=== PATIENT | female | born 1935 | race Caucasian/White ===

== ENCOUNTER 2016-10-09 15:27 | Inpatient (IN) | payer MEDICARE ==
--- NOTE | 2016-10-09 17:03 | ED ---
URI HPI - General Chief Complaint: Upper Respiratory Infection Stated Complaint: Coughing/[id number] Time Seen by Provider: 10/09/16 16:40 Source: patient, RN notes reviewed Mode of arrival: ambulatory Limitations: no limitations - History of Present Illness Initial Comments: This is an 81-year-old female presents emergency Department chief complaint cough, fever. Patient has had a cough for over one week but has recently developed a fever last 24-48 hours. Patient came from dialysis. They did discuss case with Dr. Jay Bland velvet cutter who recommended patient have lab work , x-ray. Patient had sepsis in the past secondary to UTI. Patient states she still does make some urine. Patient states she's been on dialysis for over 2 years secondary to diabetes. Patient denies any abdominal complaints at this time. Denies any nausea vomiting diarrhea constipation. She states her cough is slightly productive with yellowish phlegm. Denies ear pain or sore throat. - Related Data Home Medications Medication Instructions Recorded Confirmed Albuterol Nebulized [Ventolin 2.5 mg INHALATION RT-QID PRN 06/09/15 10/09/16 Nebulized] Allopurinol [Zyloprim] 100 mg PO DAILY 06/09/15 10/09/16 Cetirizine HCl/Pseudoephedrine 1 tab PO DAILY PRN 06/09/15 10/09/16 [Zyrtec-D Tablet] Furosemide [Lasix] 40 mg PO TUTH 06/09/15 10/09/16 Levothyroxine Sodium [Synthroid] 50 mcg PO DAILY 06/09/15 10/09/16 Midodrine [ProAmatine] 5 mg PO MOWEFR 06/09/15 10/09/16 Multivitamins, Thera [Multivitamin] 1 tab PO DAILY 06/09/15 10/09/16 Niacin 500 mg PO DAILY 06/09/15 10/09/16 Sevelamer [Renvela] 1,600 mg PO TID 06/09/15 10/09/16 Simvastatin [Zocor] 20 mg PO HS 06/09/15 10/09/16 Clopidogrel Bisulfate [Plavix] 75 mg PO DAILY 07/21/16 10/09/16 Montelukast [Singulair] 10 mg PO HS 07/21/16 10/09/16 busPIRone HCl [Buspar] 5 mg PO HS 07/21/16 10/09/16 Aspirin EC [Ecotrin Low Dose] 81 mg PO DAILY 08/16/16 10/09/16 Calcium/Magnesium/Zinc 2 tab PO HS 08/16/16 10/09/16 [Vdhpbnh-Feqxkhxel-Rlus Tablet] Cranberry Extract [Cranberry] 1,000 mg PO DAILY 08/16/16 10/09/16 Ergocalciferol [Vitamin D2] 50,000 unit PO MO 08/16/16 10/09/16 Ipratropium [place] [Atrovent Hfa] 2 puff INHALATION RT-BID 08/16/16 10/09/16 [place]-3 Fatty Acids/Fish Oil [Fish 2 cap PO HS 08/16/16 10/09/16 Oil 1,000 mg Softgel] diphenhydrAMINE [Benadryl] 50 mg PO TID 08/16/16 10/09/16 Pregabalin [Lyrica] 75 mg PO BID 10/09/16 10/09/16 Pregabalin [Lyrica] 100 mg PO DAILY@1200 10/09/16 10/09/16 Allergies Allergy/AdvReac Type Severity Reaction Status Date / Time Penicillins Allergy Dyspnea/Yves Verified 10/09/16 17:21 h shellfish derived [Shellfish] Allergy Dyspnea Verified 10/09/16 17:21 Sulfa (Sulfonamide Allergy Unknown Verified 10/09/16 17:21 Antibiotics) Childhood Review of Systems ROS Statement: Those systems with pertinent positive or pertinent negative responses have been documented in the HPI. ROS Other: All systems not noted in ROS Statement are negative. Past Medical History Past Medical History: Asthma, Coronary Artery Disease (CAD), COPD, Diabetes Mellitus, Dialysis, Hyperlipidemia, Hypertension, Osteoarthritis (OA), Renal Disease, Sleep Apnea/CPAP/BIPAP, Thyroid Disorder Additional Past Medical History / Comment(s): migraines, varicose veins, no CPAP used, hiatal hernia, diverticulitis, gout, open sore in rectal area, dialysis-hemodialysis on MOWEFR, O2 use PRN History of Any Multi-Drug Resistant Organisms: None Reported Past Surgical History: Appendectomy, Breast Surgery, Cholecystectomy, Hysterectomy, Orthopedic Surgery Additional Past Surgical History / Comment(s): left shoulder surgery, fatty tummor removed from breast, dialysis cather(rt side of chest currently), fistula left arm(not working), cataracts, aortic valve replacement Past Anesthesia/Blood Transfusion Reactions: Previous Problems w/ Anesthesia Additional Past Anesthesia/Blood Transfusion Reaction / Comment(s): "slow to come out" Past Psychological History: Anxiety Smoking Status: Former smoker Past Alcohol Use History: None Reported Additional Past Alcohol Use History / Comment(s): patient was a tobacco smoker and stopped in [address] drug or alcohol use. No recent travel. No service. Patient lives in her own home and has a caregiver Marcela and her daughter caring for her. Past Drug Use History: None Reported - Past Family History Daughter(s) Family Medical History: Cancer General Exam Limitations: no limitations General appearance: alert, in no apparent distress Head exam: Present: atraumatic, normocephalic, normal inspection Eye exam: Present: normal appearance, PERRL, EOMI. Absent: scleral icterus, conjunctival injection, periorbital swelling ENT exam: Present: normal oropharynx, mucous membranes moist Neck exam: Present: normal inspection, full ROM. Absent: tenderness, meningismus, lymphadenopathy Respiratory exam: Present: normal lung sounds bilaterally. Absent: respiratory distress, wheezes, rales, rhonchi, stridor Cardiovascular Exam: Present: regular rate, normal rhythm, normal heart sounds. Absent: systolic murmur, diastolic murmur, rubs, gallop, clicks GI/Abdominal exam: Present: soft, normal bowel sounds. Absent: distended, tenderness, guarding, rebound, rigid Neurological exam: Present: alert, oriented X3 Skin exam: Present: warm, dry, intact, normal color. Absent: rash Course Vital Signs 10/09/16 10/09/16 10/09/16 15:51 16:50 18:40 Temperature 100.0 F H 100.1 F H Pulse Rate 79 72 Respiratory 20 18 18 Rate Blood Pressure 130/59 139/58 O2 Sat by Pulse 96 96 Oximetry Medical Decision Making - Lab Data Result diagrams: 10/09/16 17:15 10/09/16 17:15 Lab Results 10/09/16 10/09/16 10/09/16 Range/Units 16:54 17:15 17:15 WBC 9.7 (3.8-10.6) k/uL RBC 3.20 L (3.80-5.40) m/uL Hgb 11.0 L (11.4-16.0) gm/dL Hct 32.7 L (34.0-46.0) % MCV 102.4 H D (80.0-100.0) fL MCH 34.4 (25.0-35.0) pg MCHC 33.6 (31.0-37.0) g/dL RDW 19.1 H (11.5-15.5) % Plt Count 127 L (150-450) k/uL Neutrophils % 71 % Lymphocytes % 16 % Monocytes % 6 % Eosinophils % 4 % Basophils % 0 % Neutrophils # 6.8 (1.3-7.7) k/uL Lymphocytes # 1.6 (1.0-4.8) k/uL Monocytes # 0.6 (0-1.0) k/uL Eosinophils # 0.4 (0-0.7) k/uL Basophils # 0.0 (0-0.2) k/uL Anisocytosis Slight Macrocytosis Moderate Sodium 136 L (137-145) mmol/L Potassium 4.5 (3.5-5.1) mmol/L Chloride 95 L (98-107) mmol/L Carbon Dioxide 28 (22-30) mmol/L Anion Gap 13 mmol/L BUN 15 (7-17) mg/dL Creatinine 2.32 H (0.52-1.04) mg/dL Est GFR (MDRD) Af Amer 24 (>60 ml/min/1.73 sqM) Est GFR (MDRD) Non-Af 20 (>60 ml/min/1.73 sqM) Glucose 167 H (74-99) mg/dL Plasma Lactic Acid Trevon (0.7-2.0) mmol/L Calcium 8.8 (8.4-10.2) mg/dL Phosphorus 3.3 (2.5-4.5) mg/dL Total Bilirubin 0.6 (0.2-1.3) mg/dL AST 29 (14-36) U/L ALT 33 (9-52) U/L Alkaline Phosphatase 81 (38-126) U/L Total Protein 6.6 (6.3-8.2) g/dL Albumin 3.8 (3.5-5.0) g/dL Influenza Type A RNA Not Detected (Not Detectd) Influenza Type B (PCR) Not Detected (Not Detectd) 10/09/16 Range/Units 17:15 WBC (3.8-10.6) k/uL RBC (3.80-5.40) m/uL Hgb (11.4-16.0) gm/dL Hct (34.0-46.0) % MCV (80.0-100.0) fL MCH (25.0-35.0) pg MCHC (31.0-37.0) g/dL RDW (11.5-15.5) % Plt Count (150-450) k/uL Neutrophils % % Lymphocytes % % Monocytes % % Eosinophils % % Basophils % % Neutrophils # (1.3-7.7) k/uL Lymphocytes # (1.0-4.8) k/uL Monocytes # (0-1.0) k/uL Eosinophils # (0-0.7) k/uL Basophils # (0-0.2) k/uL Anisocytosis Macrocytosis Sodium (137-145) mmol/L Potassium (3.5-5.1) mmol/L Chloride (98-107) mmol/L Carbon Dioxide (22-30) mmol/L Anion Gap mmol/L BUN (7-17) mg/dL Creatinine (0.52-1.04) mg/dL Est GFR (MDRD) Af Amer (>60 ml/min/1.73 sqM) Est GFR (MDRD) Non-Af (>60 ml/min/1.73 sqM) Glucose (74-99) mg/dL Plasma Lactic Acid Trevon 2.4 H* (0.7-2.0) mmol/L Calcium (8.4-10.2) mg/dL Phosphorus (2.5-4.5) mg/dL Total Bilirubin (0.2-1.3) mg/dL AST (14-36) U/L ALT (9-52) U/L Alkaline Phosphatase (38-126) U/L Total Protein (6.3-8.2) g/dL Albumin (3.5-5.0) g/dL Influenza Type A RNA (Not Detectd) Influenza Type B (PCR) (Not Detectd) Disposition Clinical Impression: Fever, Elevated lactic acid level, UTI (urinary tract infection), Acute bronchitis Disposition: ADMITTED IP TO THIS HOSP
[2016-10-09] MEDS ORDERED: SODIUM CHLORIDE 0.9% 500 ML IV ONE (17:21)
[2016-10-09 17:36] LABS: Anisocytosis Slight; Basophils % (A) 0 %; CHCM 32.4; Eosinophils # (A) 0.4 k/uL (0-0.7); Eosinophils % (A) 4 %; HCT 32.7 % (34.0-46.0); HDW 2.71; Luc # (Auto) 0.29; Luc % (Auto) 3; Lymphocytes # (A) 1.6 k/uL (1.0-4.8); Lymphocytes % (A) 16 %; MCH 34.4 pg (25.0-35.0); MCHC 33.6 g/dL (31.0-37.0); Macrocytosis Moderate; Monocytes # (A) 0.6 k/uL (0-1.0); Monocytes % (A) 6 %; Neutrophils # (A) 6.8 k/uL (1.3-7.7); Neutrophils % (A) 71 %; RDW 19.1 % (11.5-15.5); WBC 9.7 k/uL (3.8-10.6); WBC (Perox) 10.76
[2016-10-09 17:42] LABS: Calcium 8.8 mg/dL (8.4-10.2); MCV 102.4 fL (80.0-100.0); Phosphorous 3.3 mg/dL (2.5-4.5); Potassium 4.5 mmol/L (3.5-5.1); Total Bilirubin 0.6 mg/dL (0.2-1.3); Total Protein 6.6 g/dL (6.3-8.2)
--- NOTE | 2016-10-09 18:02 | XR ---
EXAMINATION TYPE: XR chest 2V DATE OF EXAM: 10/09/2016 5:47 PM COMPARISON: 08/16/2016 HISTORY: Cough TECHNIQUE: Frontal and lateral views of the chest are obtained. FINDINGS: There is no heart failure nor confluent pneumonic infiltrate. There are no hilar masses. C ostophrenic angles are clear. Thoracic aorta is atheromatous. There is aortic stent noted. IMPRESSION: No active cardiopulmonary disease. No heart failure. No change.
[2016-10-09] MEDS ORDERED: LEVOFLOXACIN 500MG-D5W PMX 500 MG in DEXTROSE/WATER 1 100ML.BAG IVPB STA (19:43)
[2016-10-09] MEDS ORDERED: NALOXONE 0.4 MG/ML 1 ML VIAL IV PRN (19:44)
[2016-10-09] MEDS ORDERED: ACETAMINOPHEN TAB 325 MG TAB PO PRN (19:44)
[2016-10-09] MEDS ORDERED: ACETAMINOPHEN TAB 500 MG TAB PO STA (19:48)
[2016-10-09] MEDS: SODIUM CHLORIDE 0.9% 1,000 ML IV SCH (20:37)
[2016-10-09] MEDS ORDERED: NON-FORMULARY DRUG (Omega-3 Fatty Acids/Fish Oil [Fish Oil 1,000 Mg Softgel] 2 CAP) PO SCH (21:00)
[2016-10-09] MEDS ORDERED: MONTELUKAST 10 MG TAB PO SCH (21:00)
[2016-10-09] MEDS: IPRATROPIUM 0.5 MG/2.5 ML NEBU INHALATION SCH (21:45)
[2016-10-10] MEDS: PREGABALIN 75 MG CAP PO SCH ×3 (00:27→21:22)
[2016-10-10] MEDS: ATORVASTATIN 10 MG TAB PO SCH ×2 (00:27→21:22)
[2016-10-10] MEDS: MONTELUKAST 10 MG TAB PO SCH ×2 (00:35→21:22)
[2016-10-10] MEDS: CALCIUM CARB-MAG CARB-FOLIC 1 EACH TAB PO SCH ×2 (00:35→21:22)
[2016-10-10] MEDS: busPIRone HCl 5 MG TAB PO SCH ×2 (00:35→21:22)
[2016-10-10] MEDS: SEVELAMER 800 MG TAB PO SCH ×4 (00:35→18:04)
[2016-10-10] MEDS: diphenhydrAMINE 50 MG CAP PO SCH ×4 (00:36→21:22)
[2016-10-10] MEDS: LEVOTHYROXINE 50 MCG TAB PO SCH (05:44)
[2016-10-10 07:05] LABS: Glucose,Whole Blood 101 mg/dL (75-99)
[2016-10-10] MEDS: ALBUTEROL NEBULIZED 2.5 MG/3 ML INHALATION PRN ×3 (07:36→20:38)
[2016-10-10] MEDS: IPRATROPIUM 0.5 MG/2.5 ML NEBU INHALATION SCH ×2 (07:36→20:38)
[2016-10-10] MEDS: CLOPIDOGREL 75 MG TAB PO SCH (09:56)
[2016-10-10] MEDS: ALLOPURINOL 100 MG TAB PO SCH (09:56)
[2016-10-10] MEDS: NIACIN TR 500 MG CAPSULE.ER PO SCH (09:57)
[2016-10-10] MEDS: FUROSEMIDE 40 MG TAB PO SCH (11:17)
[2016-10-10] MEDS: MULTIVITAMINS, THERA 1 EACH TAB PO SCH (11:17)
[2016-10-10] MEDS: PREGABALIN 100 MG CAP PO SCH (11:17)
[2016-10-10 11:47] LABS: Glucose,Whole Blood 152 mg/dL (75-99)
--- NOTE | 2016-10-10 15:14 | P.HPIM ---
History of Present Illness H&P Date: 10/10/16 81-year-old history of bacteremia in the past, currently is sent back to the hospital from hemodialysis as patient was noted to have a fever 101.8. Patient has a history of COPD, hypertension, dyslipidemia, obstructive sleep apnea. Patient is is helped by her saddle stitcher for her activities of daily living. Initial eval including a chest x-ray did not reveal any abnormalities. Patient' s urine studies are pending at this time. At the time of my examination denies having any headaches, blurry vision, neck pain, nausea, vomiting, urinary urgency or frequency, abdominal pain, diarrhea. Has not had a fever for the last 12 hours. Patient does have a cough however is minimally productive in nature. Review of Systems All systems: negative (Noted in HPI) Past Medical History Past Medical History: Asthma, Coronary Artery Disease (CAD), COPD, Diabetes Mellitus, Dialysis, Hyperlipidemia, Hypertension, Osteoarthritis (OA), Renal Disease, Sleep Apnea/CPAP/BIPAP, Thyroid Disorder Additional Past Medical History / Comment(s): migraines, varicose veins, no CPAP used, hiatal hernia, diverticulitis, gout, open sore in rectal area, dialysis-hemodialysis on MOWEFR, O2 -3 liters n/c PRN,djd, gout,uti History of Any Multi-Drug Resistant Organisms: None Reported Past Surgical History: Appendectomy, Breast Surgery, Cholecystectomy, Heart Catheterization, Hysterectomy, Orthopedic Surgery Additional Past Surgical History / Comment(s): left shoulder surgery, fatty tummor removed from breast, dialysis cather rt side of chest was removed), fistula left arm, cataracts, aortic valve replacement, ivis Past Anesthesia/Blood Transfusion Reactions: Previous Problems w/ Anesthesia Additional Past Anesthesia/Blood Transfusion Reaction / Comment(s): "slow to come out" Past Psychological History: Anxiety Smoking Status: Former smoker Past Alcohol Use History: None Reported Additional Past Alcohol Use History / Comment(s): patient started smoking at age 18(1953) and stopped in [address] drug or alcohol use. No recent travel. No service. Patient lives in her own home and has a caregiver Marcela and her daughter caring for her. Past Drug Use History: None Reported - Past Family History Father Family Medical History: Myocardial Infarction (SD) Mother Family Medical History: No Reported History Additional Family Medical History / Comment(s): from old age. Daughter(s) Family Medical History: Cancer Medications and Allergies Home Medications Medication Instructions Recorded Confirmed Type Albuterol Nebulized [Ventolin 2.5 mg INHALATION RT-QID PRN 06/09/15 10/09/16 History Nebulized] Allopurinol [Zyloprim] 100 mg PO DAILY 06/09/15 10/09/16 History Cetirizine HCl/Pseudoephedrine 1 tab PO DAILY PRN 06/09/15 10/09/16 History [Zyrtec-D Tablet] Furosemide [Lasix] 40 mg PO TUTH 06/09/15 10/09/16 History Levothyroxine Sodium [Synthroid] 50 mcg PO DAILY 06/09/15 10/09/16 History Midodrine [ProAmatine] 5 mg PO MOWEFR 06/09/15 10/09/16 History Multivitamins, Thera [Multivitamin] 1 tab PO DAILY 06/09/15 10/09/16 History Niacin 500 mg PO DAILY 06/09/15 10/09/16 History Sevelamer [Renvela] 1,600 mg PO TID 06/09/15 10/09/16 History Simvastatin [Zocor] 20 mg PO HS 06/09/15 10/09/16 History Clopidogrel Bisulfate [Plavix] 75 mg PO DAILY 07/21/16 10/09/16 History Montelukast [Singulair] 10 mg PO HS 07/21/16 10/09/16 History busPIRone HCl [Buspar] 5 mg PO HS 07/21/16 10/09/16 History Aspirin EC [Ecotrin Low Dose] 81 mg PO DAILY 08/16/16 10/09/16 History Calcium/Magnesium/Zinc 2 tab PO HS 08/16/16 10/09/16 History [Vtmbeuq-Bugboiwiw-Idff Tablet] Cranberry Extract [Cranberry] 1,000 mg PO DAILY 08/16/16 10/09/16 History Ergocalciferol [Vitamin D2] 50,000 unit PO MO 08/16/16 10/09/16 History Ipratropium [place] [Atrovent Hfa] 2 puff INHALATION RT-BID 08/16/16 10/09/16 History [place]-3 Fatty Acids/Fish Oil [Fish 2 cap PO HS 08/16/16 10/09/16 History Oil 1,000 mg Softgel] diphenhydrAMINE [Benadryl] 50 mg PO TID 08/16/16 10/09/16 History Pregabalin [Lyrica] 75 mg PO BID 10/09/16 10/09/16 History Pregabalin [Lyrica] 100 mg PO DAILY@1200 10/09/16 10/09/16 History Allergies Allergy/AdvReac Type Severity Reaction Status Date / Time Penicillins Allergy Dyspnea/Yves Verified 10/09/16 17:21 h shellfish derived [Shellfish] Allergy Dyspnea Verified 10/09/16 17:21 Sulfa (Sulfonamide Allergy Unknown Verified 10/09/16 17:21 Antibiotics) Childhood Physical Exam Vitals: Vital Signs Temp Pulse Pulse Resp BP BP Pulse Ox 10/10/16 07:46 64 10/10/16 07:36 64 10/10/16 07:00 99.1 F 78 16 128/58 95 10/10/16 00:55 98.2 F 76 16 128/67 96 10/09/16 22:10 98.0 F 75 16 122/45 93 L 10/09/16 21:20 98.1 F 73 18 123/56 96 Intake and Output 10/10/16 10/10/16 10/10/16 06:59 14:59 22:59 Intake Total 160 Balance 160 Intake: IV 160 Sodium Chloride 0.9% 1, 160 000 ml @ 20 mls/hr IV . Q24H [facility] Rx#:[id number] Physical exam Gen. appearance oriented 3 in no distress Neck is supple no JVD Lungs good air entry clear to auscultation no rhonchi or wheezing Heart S1-S2 heard regular rate and rhythm no murmurs appreciated Abdomen is soft nontender no organomegaly bowel sounds are intact Left upper extremity a palpable thrill noted over the fistula. No erythema no signs of infection. Neurologically cranial nerves II-12 grossly intact no focal motor or sensory deficits noted Skin no abnormalities appreciated Results CBC & Chem 7: 10/09/16 17:15 10/09/16 17:15 Labs: Abnormal Lab Results - Last 24 Hours (Table) 10/10/16 10/10/16 Range/Units 07:00 11:39 POC Glucose (mg/dL) 101 H 152 H (75-99) mg/dL Thrombosis Risk Factor Assmnt - Choose All That Apply Each Risk Factor Represents 3 Points: Age 75 years or older Thrombosis Risk Factor Assessment Total Risk Factor Score: 3 Thrombosis Risk Factor Assessment Level: Moderate Risk Assessment and Plan Plan: #1 fever of unknown origin #2 acute bronchitis #3 history of COPD that is stable #4 ESRD and hemodialysis #5 history of hypertension #6 dyslipidemia #7 obstructive sleep apnea #8 anemia of ESRD #9 hypothyroidism #10 peripheral neuropathy #11 history of breast cancer Plan Empiric antibody therapy will be started. Influenza screen is negative. Blood culture and urine culture will be done. Continue supportive care. Due to prophylaxis. We'll monitor the patient for further febrile episodes.
[2016-10-10 17:01] LABS: Glucose,Whole Blood 146 mg/dL (75-99)
[2016-10-10] MEDS ORDERED: LEVOFLOXACIN 250 MG TAB PO SCH (20:00)
[2016-10-10] MEDS ORDERED: LEVOFLOXACIN 500MG-D5W PMX 500 MG in DEXTROSE/WATER 1 100ML.BAG IVPB SCH (20:00)
[2016-10-10 20:46] LABS: Glucose,Whole Blood 173 mg/dL (75-99)
[2016-10-11] MEDS: LEVOTHYROXINE 50 MCG TAB PO SCH (05:44)
[2016-10-11] MEDS: SODIUM CHLORIDE 0.9% 1,000 ML IV SCH ×2 (05:45→21:30)
[2016-10-11 06:56] LABS: Glucose,Whole Blood 125 mg/dL (75-99)
[2016-10-11 07:32] LABS: Calcium 8.7 mg/dL (8.4-10.2); Potassium 5.4 mmol/L (3.5-5.1); Total Bilirubin 0.5 mg/dL (0.2-1.3); Total Protein 5.6 g/dL (6.3-8.2)
[2016-10-11] MEDS: SEVELAMER 800 MG TAB PO SCH ×3 (07:38→17:07)
[2016-10-11] MEDS: ALLOPURINOL 100 MG TAB PO SCH (07:59)
[2016-10-11] MEDS: CLOPIDOGREL 75 MG TAB PO SCH (07:59)
[2016-10-11] MEDS: diphenhydrAMINE 50 MG CAP PO SCH ×3 (07:59→21:26)
[2016-10-11] MEDS: NIACIN TR 500 MG CAPSULE.ER PO SCH (08:00)
[2016-10-11] MEDS: PREGABALIN 75 MG CAP PO SCH ×2 (08:00→21:26)
[2016-10-11 08:42] LABS: Anisocytosis Slight; Basophils % (A) 1 %; CH 32.6; CHCM 31.2; Eosinophils # (A) 0.5 k/uL (0-0.7); Eosinophils % (A) 7 %; HCT 30.4 % (34.0-46.0); HDW 2.52; HGB 9.6 gm/dL (11.4-16.0); Hypochromasia Slight; Luc # (Auto) 0.33; Luc % (Auto) 4; Lymphocytes # (A) 1.6 k/uL (1.0-4.8); Lymphocytes % (A) 20 %; MCH 33.1 pg (25.0-35.0); MCHC 31.5 g/dL (31.0-37.0); MCV 105.1 fL (80.0-100.0); Macrocytosis Marked; Mean Platelet Volume 7.4; Monocytes # (A) 0.5 k/uL (0-1.0); Monocytes % (A) 7 %; Neutrophils # (A) 5.1 k/uL (1.3-7.7); Neutrophils % (A) 63 %; RBC 2.89 m/uL (3.80-5.40); RDW 18.2 % (11.5-15.5); WBC 8.2 k/uL (3.8-10.6); WBC (Perox) 8.47
[2016-10-11] MEDS: IPRATROPIUM 0.5 MG/2.5 ML NEBU INHALATION SCH ×2 (08:49→19:13)
[2016-10-11] MEDS ORDERED: MIDODRINE 5 MG TAB PO SCH (12:00)
[2016-10-11 12:02] LABS: Manual Review Performed
[2016-10-11 12:18] LABS: Glucose,Whole Blood 173 mg/dL (75-99)
[2016-10-11] MEDS: MULTIVITAMINS, THERA 1 EACH TAB PO SCH (12:32)
[2016-10-11] MEDS: PREGABALIN 100 MG CAP PO SCH (12:33)
[2016-10-11 17:05] LABS: Glucose,Whole Blood 192 mg/dL (75-99)
--- NOTE | 2016-10-11 17:14 | P.PN ---
Subjective 81-year-old history of bacteremia in the past, currently is sent back to the hospital from hemodialysis as patient was noted to have a fever 101.8. Patient has a history of COPD, hypertension, dyslipidemia, obstructive sleep apnea. Patient is is helped by her change control specialist for her activities of daily living. Initial eval including a chest x-ray did not reveal any abnormalities. Patient' s urine studies are pending at this time. At the time of my examination denies having any headaches, blurry vision, neck pain, nausea, vomiting, urinary urgency or frequency, abdominal pain, diarrhea. Has not had a fever for the last 12 hours. Patient does have a cough however is minimally productive in nature. 10/11/2016 Patient doing well no new overnight events. Denies having chest pain, difficulty breathing, nausea, vomiting. Objective - Vital Signs Vital signs: Vital Signs Temp 97.8 F 10/11/16 15:00 Pulse 71 10/11/16 16:00 Resp 16 10/11/16 16:00 BP 133/63 10/11/16 15:00 Pulse Ox 94 L 10/11/16 15:00 Intake & Output 10/10/16 10/11/16 10/11/16 18:59 06:59 18:59 Intake Total 600 1500 Balance 600 1500 Weight 88.3 kg Intake: IV 200 Sodium Chloride 0.9% 1, 200 000 ml @ 20 mls/hr IV . Q24H [facility] Rx#:[id number] Oral 400 1500 Other: Voiding Method Toilet Toilet Diaper # Voids 2 2 - Exam Physical exam Gen. appearance oriented 3 in no distress Neck is supple no JVD Lungs good air entry clear to auscultation no rhonchi or wheezing Heart S1-S2 heard regular rate and rhythm no murmurs appreciated Abdomen is soft nontender no organomegaly bowel sounds are intact Fistula in the left upper arm palpable thrill no signs of infection. Neurologically cranial nerves II-12 grossly intact no focal motor or sensory deficits noted Skin no abnormalities appreciated - Labs CBC & Chem 7: 10/11/16 07:00 10/11/16 07:00 Labs: Abnormal Lab Results - Last 24 Hours (Table) 10/10/16 10/11/16 10/11/16 Range/Units 20:43 06:55 07:00 RBC 2.89 L (3.80-5.40) m/uL Hgb 9.6 L (11.4-16.0) gm/dL Hct 30.4 L (34.0-46.0) % MCV 105.1 H (80.0-100.0) fL RDW 18.2 H (11.5-15.5) % Plt Count 136 L (150-450) k/uL Sodium (137-145) mmol/L Potassium (3.5-5.1) mmol/L BUN (7-17) mg/dL Creatinine (0.52-1.04) mg/dL Glucose (74-99) mg/dL POC Glucose (mg/dL) 173 H 125 H (75-99) mg/dL Total Protein (6.3-8.2) g/dL Albumin (3.5-5.0) g/dL 10/11/16 10/11/16 10/11/16 Range/Units 07:00 12:17 17:04 RBC (3.80-5.40) m/uL Hgb (11.4-16.0) gm/dL Hct (34.0-46.0) % MCV (80.0-100.0) fL RDW (11.5-15.5) % Plt Count (150-450) k/uL Sodium 136 L (137-145) mmol/L Potassium 5.4 H (3.5-5.1) mmol/L BUN 42 H (7-17) mg/dL Creatinine 5.06 H* (0.52-1.04) mg/dL Glucose 124 H (74-99) mg/dL POC Glucose (mg/dL) 173 H 192 H (75-99) mg/dL Total Protein 5.6 L (6.3-8.2) g/dL Albumin 3.1 L (3.5-5.0) g/dL Assessment and Plan Plan: #1 fever likely secondary to a urinary tract infection with gram-negative bacilli. #2 acute bronchitis #3 history of COPD that is stable #4 ESRD and hemodialysis #5 history of hypertension #6 dyslipidemia #7 obstructive sleep apnea #8 anemia of ESRD #9 hypothyroidism #10 peripheral neuropathy #11 history of breast cancer Plan Antibiotic therapy. Patient appears to be improved. Await final cultures and susceptibilities. We'll have nephrology and also for her hemodialysis today. Rest of the care to continue. DVT prophylaxis.
[2016-10-11 20:10] LABS: Hepatitis B Surface Ag Index 0.08
[2016-10-11 20:50] VITALS: RESP 18
[2016-10-11] MEDS: busPIRone HCl 5 MG TAB PO SCH (21:25)
[2016-10-11] MEDS: ATORVASTATIN 10 MG TAB PO SCH (21:25)
[2016-10-11] MEDS: CALCIUM CARB-MAG CARB-FOLIC 1 EACH TAB PO SCH (21:26)
[2016-10-11] MEDS: MONTELUKAST 10 MG TAB PO SCH (21:26)
--- NOTE | 2016-10-11 21:42 | CONS ---
DATE OF CONSULTATION: 10/11/2016 REASON FOR CONSULTATION: End-stage renal disease. HISTORY OF PRESENT ILLNESS: Patient is an 81-year-old white female with end-stage renal disease on hemodialysis on a Sunday, Sunday, Sunday schedule. She was admitted to the hospital with complaints of weakness, not feeling well. She also had cough and fever. She was found to have a urinary tract infection with gram-negative bacilli. Patient states she is feeling better. PAST MEDICAL HISTORY: End-stage renal disease, morbid obesity, coronary artery disease, type 2 diabetes, osteoarthritis, hypertension, obstructive sleep apnea, hypothyroidism. PAST SURGICAL HISTORY: Appendectomy, breast surgery, cholecystectomy, hysterectomy, left shoulder surgery, AV fistula, aortic valve replacement. SOCIAL HISTORY: Patient is an ex-smoker. No history of drug abuse or alcohol abuse. Medications are reviewed. ALLERGIES INCLUDE SULFA, SHELLFISH AND PENICILLINS. On examination, patient is currently comfortable, awake, not in any acute distress. Blood pressure is 133/63, heart rate 71 per minute. She is afebrile. HEART: S1 and S2. LUNGS: Bilateral breath sounds are heard. Decreased breath sounds in bases. Abdomen is soft, morbidly obese. Lower extremities show chronic skin changes.
--- NOTE | 2016-10-11 21:42 | PN ---
ADDENDUM TO PROGRESS NOTE ASSESSMENT: 1. End-stage renal disease, on hemodialysis on a Sunday, Sunday, Sunday schedule. 2. Urinary tract infection with Gram-negative bacilli, maintained on antibiotics. 3. Morbid obesity. 4. Type 2 diabetes. 5. Obstructive sleep apnea. 6. Chronic kidney disease bone mineral disorder. 7. Chronic obstructive pulmonary disease. PLAN: Hemodialysis today; UF of about 2 to 3 liters as tolerated.
[2016-10-11] MEDS ORDERED: GELATIN SPONGE,ABSORB (SMALL) 1 EACH SPONGE ONE (22:30)
[2016-10-12] MEDS: LEVOTHYROXINE 50 MCG TAB PO SCH (05:36)
[2016-10-12 07:02] LABS: Glucose,Whole Blood 98 mg/dL (75-99)
[2016-10-12 07:20] LABS: Potassium 5.2 mmol/L (3.5-5.1); Total Bilirubin 0.6 mg/dL (0.2-1.3); Total Protein 5.9 g/dL (6.3-8.2)
[2016-10-12] MEDS: IPRATROPIUM 0.5 MG/2.5 ML NEBU INHALATION SCH (07:21)
[2016-10-12 07:35] VITALS: BP 124/51; PULSE 67; TEMP 98
[2016-10-12] MEDS: SEVELAMER 800 MG TAB PO SCH ×2 (08:01→10:51)
[2016-10-12] MEDS: CLOPIDOGREL 75 MG TAB PO SCH (08:02)
[2016-10-12] MEDS: diphenhydrAMINE 50 MG CAP PO SCH (08:02)
[2016-10-12] MEDS: FUROSEMIDE 40 MG TAB PO SCH (08:02)
[2016-10-12] MEDS: NIACIN TR 500 MG CAPSULE.ER PO SCH (08:02)
[2016-10-12] MEDS: ALLOPURINOL 100 MG TAB PO SCH (08:02)
[2016-10-12] MEDS: PREGABALIN 75 MG CAP PO SCH (08:03)
[2016-10-12 08:04] LABS: Anisocytosis Slight; Aty Lym Flag Slight; CH 32.6; CHCM 31.1; HCT 33.8 % (34.0-46.0); HDW 2.61; HGB 10.7 gm/dL (11.4-16.0); Hypochromasia Slight; MCH 33.4 pg (25.0-35.0); MCHC 31.6 g/dL (31.0-37.0); MCV 105.4 fL (80.0-100.0); Macrocytosis Marked; Mean Platelet Volume 7.4; RBC 3.21 m/uL (3.80-5.40); WBC (Perox) 8.32
[2016-10-12 08:27] LABS: Add Differential Manual Differential
[2016-10-12 08:31] LABS: Nucleated Red Blood Cells 0 /100 WBC (0-0); Total Cells Counted 100
[2016-10-12] MEDS: MULTIVITAMINS, THERA 1 EACH TAB PO SCH (10:50)
[2016-10-12] MEDS: PREGABALIN 100 MG CAP PO SCH (10:51)
--- NOTE | 2016-10-12 11:02 | P.PN ---
Subjective Patient is seen in follow-up for end-stage renal disease. She is maintained on hemodialysis on a Sunday schedule. Patient presented with generalized weakness. She had a fever of 102 and also a cough which is now resolved. She is noted to have a urinary tract infection with urine culture positive for E. coli. Currently sitting up in chair. Denies chest pain or shortness of breath. No vomiting or diarrhea. Vital signs are stable. General: The patient appeared well nourished and normally developed. HEENT: Head exam is unremarkable. Neck is without jugular venous distension. LUNGS: Lungs are clear to auscultation and percussion. Breath sounds decreased. HEART: Rate and Rhythm are regular. First and second heart sounds normal. No murmurs, rubs or gallops. ABDOMEN: Abdominal exam reveals normal bowel sounds. Non-tender and non- distended. No evidence of peritonitis. EXTREMITITES: No clubbing, cyanosis, or edema. Objective - Vital Signs Vital signs: Vital Signs Temp 98 F 10/12/16 07:00 Pulse 67 10/12/16 08:00 Resp 18 10/12/16 08:00 BP 124/51 10/12/16 07:00 Pulse Ox 96 10/12/16 07:00 Intake & Output 10/11/16 10/12/16 10/12/16 18:59 06:59 18:59 Intake Total 1999 390 Balance 1999 390 Weight 88.3 kg 88.3 kg Intake: IV 140 Sodium Chloride 0.9% 1, 140 000 ml @ 20 mls/hr IV . Q24H [facility] Rx#:[id number] Oral 1999 250 Other: Voiding Method Toilet Toilet Diaper Diaper # Voids 2 - Labs CBC & Chem 7: 10/12/16 06:43 10/12/16 06:43 Labs: Abnormal Lab Results - Last 24 Hours (Table) 10/11/16 10/11/16 10/11/16 Range/Units 07:00 12:17 17:04 RBC 2.89 L (3.80-5.40) m/uL Hgb 9.6 L (11.4-16.0) gm/dL Hct 30.4 L (34.0-46.0) % MCV 105.1 H (80.0-100.0) fL RDW 18.2 H (11.5-15.5) % Plt Count 136 L (150-450) k/uL Potassium (3.5-5.1) mmol/L BUN (7-17) mg/dL Creatinine (0.52-1.04) mg/dL Glucose (74-99) mg/dL POC Glucose (mg/dL) 173 H 192 H (75-99) mg/dL Total Protein (6.3-8.2) g/dL Albumin (3.5-5.0) g/dL 10/12/16 10/12/16 Range/Units 06:43 06:43 RBC 3.21 L (3.80-5.40) m/uL Hgb 10.7 L (11.4-16.0) gm/dL Hct 33.8 L (34.0-46.0) % MCV 105.4 H (80.0-100.0) fL RDW 18.0 H (11.5-15.5) % Plt Count (150-450) k/uL Potassium 5.2 H (3.5-5.1) mmol/L BUN 28 H (7-17) mg/dL Creatinine 3.67 H (0.52-1.04) mg/dL Glucose 100 H (74-99) mg/dL POC Glucose (mg/dL) (75-99) mg/dL Total Protein 5.9 L (6.3-8.2) g/dL Albumin 3.2 L (3.5-5.0) g/dL Assessment and Plan Plan: Assessment: #1. End-stage renal disease maintained on hemodialysis on a Sunday schedule. #2. Acute bronchitis. #3. Urinary tract infection with urine culture positive for E. coli. #4. Chronic kidney disease mineral bone disease. #5. Anemia of chronic kidney disease. Hemoglobin at goal. Plan: Hemodialysis tomorrow with goal to liters ultrafiltration. Maintain phosphate binders with meals. Stable to be discharged home from nephrology standpoint.
[2016-10-12 11:53] LABS: Glucose,Whole Blood 177 mg/dL (75-99)
--- NOTE | 2016-10-12 12:05 | P.DS ---
Providers Date of admission: 10/09/16 20:10 Attending physician: Jennifer Suarez Consults: 10/10/16 14:59 Consult Physician Stat Consulting Provider: Henna Molina Consult Reason/Comments: ESRD Do you want consulting provider notified?: Yes Primary care physician: Tone Adams [facility] Course: 81-year-old history of bacteremia in the past, currently is sent back to the hospital from hemodialysis as patient was noted to have a fever 101.8. Patient has a history of COPD, hypertension, dyslipidemia, obstructive sleep apnea. Patient is is helped by her receptionist for her activities of daily living. Initial eval including a chest x-ray did not reveal any abnormalities. Patient' s urine studies are pending at this time. At the time of my examination denies having any headaches, blurry vision, neck pain, nausea, vomiting, urinary urgency or frequency, abdominal pain, diarrhea. Has not had a fever for the last 12 hours. Patient does have a cough however is minimally productive in nature. 10/11/2016 Patient doing well no new overnight events. Denies having chest pain, difficulty breathing, nausea, vomiting. 2016 Patient appears to be in good spirits. Denies having any headaches, blurry vision, nausea, vomiting, diarrhea. Physical exam Neck is supple no JVD Lungs good air entry clear to auscultation no rhonchi or wheezing Heart S1-S2 heard regular rate and rhythm no murmurs appreciated Abdomen is soft nontender no organomegaly bowel sounds are intact Fistula in the left upper arm palpable thrill no signs of infection. Neurologically cranial nerves II-12 grossly intact no focal motor or sensory deficits noted Skin no abnormalities appreciated Assessment and Plan Plan: #1 E. coli urinary tract infection causing sepsis which was present on admission. #2 acute bronchitis #3 history of COPD that is stable #4 ESRD and hemodialysis #5 history of hypertension #6 dyslipidemia #7 obstructive sleep apnea #8 anemia of ESRD #9 hypothyroidism #10 peripheral neuropathy #11 history of breast cancer Underwent hemodialysis on admission. Continue antibiotics for another 6 doses. To follow up with patient's primary care physician. No other changes in medications were made. Patient Condition at Discharge: Fair Plan - Discharge Summary New Discharge Prescriptions: Levofloxacin [Levaquin] 250 mg PO Q48H #6 tab Discharge Medication List Albuterol Nebulized [Ventolin Nebulized] 2.5 mg INHALATION RT-QID PRN 06/09/15 [ History] Allopurinol [Zyloprim] 100 mg PO DAILY 06/09/15 [History] Cetirizine HCl/Pseudoephedrine [Zyrtec-D Tablet] 1 tab PO DAILY PRN 06/09/15 [ History] Furosemide [Lasix] 40 mg PO TUTH 06/09/15 [History] Levothyroxine Sodium [Synthroid] 50 mcg PO DAILY 06/09/15 [History] Midodrine [ProAmatine] 5 mg PO MOWEFR 06/09/15 [History] Multivitamins, Thera [Multivitamin] 1 tab PO DAILY 06/09/15 [History] Niacin 500 mg PO DAILY 06/09/15 [History] Sevelamer [Renvela] 1,600 mg PO TID 06/09/15 [History] Simvastatin [Zocor] 20 mg PO HS 06/09/15 [History] Clopidogrel Bisulfate [Plavix] 75 mg PO DAILY 07/21/16 [History] Montelukast [Singulair] 10 mg PO HS 07/21/16 [History] busPIRone HCl [Buspar] 5 mg PO HS 07/21/16 [History] Aspirin EC [Ecotrin Low Dose] 81 mg PO DAILY 08/16/16 [History] Calcium/Magnesium/Zinc [Vobticl-Fmglsjtnk-Ufat Tablet] 2 tab PO HS 08/16/16 [ History] Cranberry Extract [Cranberry] 1,000 mg PO DAILY 08/16/16 [History] Ergocalciferol [Vitamin D2 (DRISDOL)] 50,000 unit PO MO 08/16/16 [History] Ipratropium [place] [Atrovent Hfa] 2 puff INHALATION RT-BID 08/16/16 [History] [place]-3 Fatty Acids/Fish Oil [Fish Oil 1,000 mg Softgel] 2 cap PO HS 08/16/16 [ History] diphenhydrAMINE [Benadryl] 50 mg PO TID 08/16/16 [History] Pregabalin [Lyrica] 75 mg PO BID 10/09/16 [History] Pregabalin [Lyrica] 100 mg PO DAILY@1200 10/09/16 [History] Levofloxacin [Levaquin] 250 mg PO Q48H #6 tab 10/12/16 [Rx] Follow up Appointment(s)/Referral(s): Henna Molina MD [STAFF PHYSICIAN] - 10/24/16 2:00 pm Tone Adams MD [Primary Care Provider] - 10/19/16 10:30 am Discharge Disposition: HOME SELF-CARE
[2016-10-12] MEDS ORDERED: LEVOFLOXACIN 250 MG TAB PO SCH (18:00)
== END 2016-10-12 14:55 | disposition home or self-care (01) | DRG 871 ==
LOC: EC 15:27 → 4MS4W 20:10 → 3SUR 20:35
PROVIDERS: ADMIT Internal Medicine; ATTEND Internal Medicine
DX: A41.9 Sepsis, unspecified organism (principal); N18.6 End stage renal disease; J44.0 Chronic obstructive pulmonary disease with (acute) lower respiratory infection; I12.0 Hypertensive chronic kidney disease with stage 5 chronic kidney disease or end stage renal disease; N39.0 Urinary tract infection, site not specified; E11.22 Type 2 diabetes mellitus with diabetic chronic kidney disease; D63.1 Anemia in chronic kidney disease; E03.9 Hypothyroidism, unspecified; E66.01 Morbid (severe) obesity due to excess calories; E78.5 Hyperlipidemia, unspecified; F41.9 Anxiety disorder, unspecified; G47.33 Obstructive sleep apnea (adult) (pediatric); I25.10 Atherosclerotic heart disease of native coronary artery without angina pectoris; J20.9 Acute bronchitis, unspecified; J45.909 Unspecified asthma, uncomplicated; B96.20 Unspecified Escherichia coli [E. coli] as the cause of diseases classified elsewhere; G43.909 Migraine, unspecified, not intractable, without status migrainosus; I83.90 Asymptomatic varicose veins of unspecified lower extremity; M19.90 Unspecified osteoarthritis, unspecified site; K44.9 Diaphragmatic hernia without obstruction or gangrene; K57.90 Diverticulosis of intestine, part unspecified, without perforation or abscess without bleeding; M10.9 Gout, unspecified; E11.40 Type 2 diabetes mellitus with diabetic neuropathy, unspecified; E83.9 Disorder of mineral metabolism, unspecified; Z85.3 Personal history of malignant neoplasm of breast; Z87.891 Personal history of nicotine dependence; Z95.2 Presence of prosthetic heart valve; Z99.2 Dependence on renal dialysis; Z88.2 Allergy status to sulfonamides; Z88.0 Allergy status to penicillin; Z68.39 Body mass index [BMI] 39.0-39.9, adult; Z79.02 Long term (current) use of antithrombotics/antiplatelets; Z79.82 Long term (current) use of aspirin; Z79.899 Other long term (current) drug therapy; Z82.49 Family history of ischemic heart disease and other diseases of the circulatory system
CPT/HCPCS: 36415; 71020; 80053; 82607; 83540; 83550; 83605; 84100; 85025; 87040; 87077; 87086; 87186; 87340; 87502; 94640; 96365; 99284

== ENCOUNTER → 2016-10-25 | Outpatient (CLI) | payer MEDICARE ==
[2016-10-25 09:06] LABS: Calcium 9.3 mg/dL (8.4-10.2); Potassium 5.5 mmol/L (3.5-5.1)
[2016-10-25 11:46] LABS: Hemoglobin A1C 5.4 % (4.2-6.1)
== END | disposition home or self-care (01) ==
LOC: LABWHC1 08:23
PROVIDERS: ATTEND Family Medicine
DX: E11.42 Type 2 diabetes mellitus with diabetic polyneuropathy (principal)
CPT/HCPCS: 36415; 80048; 80061; 83036

== ENCOUNTER 2016-12-18 11:14 | Inpatient (IN) | payer MEDICARE ==
[2016-12-18] MEDS ORDERED: SODIUM CHLORIDE 0.9% 1,000 ML IV ONE (11:53)
--- NOTE | 2016-12-18 12:05 | ED ---
General Adult HPI - General Chief complaint: Altered Mental Status Stated complaint: POSS UTI Time Seen by Provider: 12/18/16 11:44 Source: patient, RN notes reviewed, old records reviewed Mode of arrival: ambulatory Limitations: altered mental status - History of Present Illness Initial comments: This is a 81-year-old female to the ER for evaluation of altered mental status. Patient has a significant Medical history including dialysis and multiple medical comorbidities. Was in dialysis today noted to have fever and to be altered mentally. Patient is also noted to not be able to complete her dialysis. Patient's poor historian, history obtained from the nurse at dialysis , and chart - Related Data Home Medications Medication Instructions Recorded Confirmed Albuterol Nebulized [Ventolin 2.5 mg INHALATION RT-QID PRN 06/09/15 12/18/16 Nebulized] Allopurinol [Zyloprim] 100 mg PO DAILY 06/09/15 12/18/16 Cetirizine HCl/Pseudoephedrine 1 tab PO DAILY PRN 06/09/15 12/18/16 [Zyrtec-D Tablet] Furosemide [Lasix] 40 mg PO TUTH 06/09/15 12/18/16 Levothyroxine Sodium [Synthroid] 50 mcg PO DAILY 06/09/15 12/18/16 Midodrine [ProAmatine] 5 mg PO MOWEFR 06/09/15 12/18/16 Multivitamins, Thera [Multivitamin 1 tab PO DAILY 06/09/15 12/18/16 (formulary)] Niacin 500 mg PO DAILY 06/09/15 12/18/16 Sevelamer [Renvela] 1,600 mg PO TID 06/09/15 12/18/16 Simvastatin [Zocor] 20 mg PO HS 06/09/15 12/18/16 Clopidogrel Bisulfate [Plavix] 75 mg PO DAILY 07/21/16 12/18/16 Montelukast [Singulair] 10 mg PO HS 07/21/16 12/18/16 busPIRone HCl [Buspar] 5 mg PO HS 07/21/16 12/18/16 Aspirin EC [Ecotrin Low Dose] 81 mg PO DAILY 08/16/16 12/18/16 Calcium/Magnesium/Zinc 1 tab PO DAILY 08/16/16 12/18/16 [Vqbdier-Hwmnrquxk-Jzqi Tablet] Ergocalciferol [Vitamin D2 50,000 unit PO MO 08/16/16 12/18/16 (DRISDOL)] [place]-3 Fatty Acids/Fish Oil [Fish 2 cap PO HS 08/16/16 12/18/16 Oil 1,000 mg Softgel] Pregabalin [Lyrica] 100 mg PO TID 10/09/16 12/18/16 ALPRAZolam [Xanax] 0.25 mg PO HS 12/18/16 12/18/16 Albuterol Inhaler [Ventolin Hfa 2 puff INHALATION RT-Q6H PRN 12/18/16 12/18/16 Inhaler] Cranberry Gummies 1 tab PO BID 12/18/16 12/18/16 diphenhydrAMINE HCL [Benadryl] 50 mg PO TID 12/18/16 12/18/16 Allergies Allergy/AdvReac Type Severity Reaction Status Date / Time Penicillins Allergy Dyspnea/Yves Verified 12/18/16 12:38 h shellfish derived [Shellfish] Allergy Dyspnea Verified 12/18/16 12:38 Sulfa (Sulfonamide Allergy Unknown Verified 12/18/16 12:38 Antibiotics) Childhood Review of Systems ROS Statement: Those systems with pertinent positive or pertinent negative responses have been documented in the HPI. ROS Other: All systems not noted in ROS Statement are negative. Past Medical History Past Medical History: Asthma, Coronary Artery Disease (CAD), COPD, Diabetes Mellitus, Dialysis, Hyperlipidemia, Hypertension, Osteoarthritis (OA), Renal Disease, Sleep Apnea/CPAP/BIPAP, Thyroid Disorder Additional Past Medical History / Comment(s): migraines, varicose veins, no CPAP used, hiatal hernia, diverticulitis, gout, open sore in rectal area, dialysis-hemodialysis on MOWEFR, O2 -3 liters n/c PRN,djd, gout,uti History of Any Multi-Drug Resistant Organisms: None Reported Past Surgical History: Appendectomy, Breast Surgery, Cholecystectomy, Heart Catheterization, Hysterectomy, Orthopedic Surgery Additional Past Surgical History / Comment(s): left shoulder surgery, fatty tummor removed from breast, dialysis cather rt side of chest was removed), fistula left arm, cataracts, aortic valve replacement, ivis Past Anesthesia/Blood Transfusion Reactions: Previous Problems w/ Anesthesia Additional Past Anesthesia/Blood Transfusion Reaction / Comment(s): "slow to come out" Past Psychological History: Anxiety Smoking Status: Former smoker Past Alcohol Use History: None Reported Additional Past Alcohol Use History / Comment(s): patient started smoking at age 18(1953) and stopped in [address] drug or alcohol use. No recent travel. No service. Patient lives in her own home and has a caregiver Marcela and her daughter caring for her. Past Drug Use History: None Reported - Past Family History Father Family Medical History: Myocardial Infarction ([place]) Mother Family Medical History: No Reported History Additional Family Medical History / Comment(s): from old age. Daughter(s) Family Medical History: Cancer General Exam Limitations: altered mental status General appearance: alert, in no apparent distress Head exam: Present: atraumatic, normocephalic, normal inspection Eye exam: Present: normal appearance, PERRL, EOMI. Absent: scleral icterus, conjunctival injection, periorbital swelling ENT exam: Present: normal exam, mucous membranes moist Neck exam: Present: normal inspection. Absent: tenderness, meningismus, lymphadenopathy Respiratory exam: Present: normal lung sounds bilaterally. Absent: respiratory distress, wheezes, rales, rhonchi, stridor Cardiovascular Exam: Present: regular rate, normal rhythm, normal heart sounds. Absent: systolic murmur, diastolic murmur, rubs, gallop, clicks GI/Abdominal exam: Present: soft, normal bowel sounds. Absent: distended, tenderness, guarding, rebound, rigid Extremities exam: Present: normal inspection, full ROM, normal capillary refill. Absent: tenderness, pedal edema, joint swelling, calf tenderness Back exam: Present: normal inspection Neurological exam: Present: alert, oriented X3, CN II-XII intact Psychiatric exam: Present: normal affect, normal mood Skin exam: Present: warm, dry, intact, normal color. Absent: rash Course Vital Signs 12/18/16 12/18/16 11:23 12:53 Temperature 99.3 F Pulse Rate 77 72 Respiratory 18 18 Rate Blood Pressure 136/64 147/66 O2 Sat by Pulse 99 95 Oximetry - Reevaluation(s) Reevaluation #1: 12/18/16 14:02 Family spoke with and informed of current infection, need to stay in hospital, questions are answered Medical Decision Making - Medical Decision Making 81 female at ER for evaluation. Patient does presents today for evaluation of altered mental status, positive fever and positive urinary tract infection. At This time patient be admitted for IV antibiotics. Patient will also be consult for nephrology for dialysis - Lab Data Result diagrams: 12/18/16 11:45 12/18/16 11:45 Lab Results 12/18/16 12/18/16 12/18/16 Range/Units 11:45 11:45 11:45 WBC 18.1 H (3.8-10.6) k/uL RBC 3.35 L (3.80-5.40) m/uL Hgb 10.9 L (11.4-16.0) gm/dL Hct 34.6 (34.0-46.0) % MCV 103.2 H (80.0-100.0) fL MCH 32.5 (25.0-35.0) pg MCHC 31.5 (31.0-37.0) g/dL RDW 17.1 H (11.5-15.5) % Plt Count 131 L (150-450) k/uL Neutrophils % 86 % Lymphocytes % 8 % Monocytes % 3 % Eosinophils % 1 % Basophils % 0 % Neutrophils # 15.6 H (1.3-7.7) k/uL Lymphocytes # 1.4 (1.0-4.8) k/uL Monocytes # 0.5 (0-1.0) k/uL Eosinophils # 0.3 (0-0.7) k/uL Basophils # 0.1 (0-0.2) k/uL Hypochromasia Slight Anisocytosis Slight Macrocytosis Moderate PT (9.0-12.0) sec INR (<1.1) APTT (22.0-30.0) sec Sodium (137-145) mmol/L Potassium (3.5-5.1) mmol/L Chloride (98-107) mmol/L Carbon Dioxide (22-30) mmol/L Anion Gap mmol/L BUN (7-17) mg/dL Creatinine (0.52-1.04) mg/dL Est GFR (MDRD) Af Amer (>60 ml/min/1.73 sqM) Est GFR (MDRD) Non-Af (>60 ml/min/1.73 sqM) Glucose (74-99) mg/dL POC Glucose (mg/dL) (75-99) mg/dL POC Glu Log Handling Equipment Operator ID Calcium (8.4-10.2) mg/dL Phosphorus (2.5-4.5) mg/dL Magnesium (1.6-2.3) mg/dL Total Bilirubin (0.2-1.3) mg/dL AST (14-36) U/L ALT (9-52) U/L Alkaline Phosphatase (38-126) U/L Ammonia 13 (<30) umol/L Total Creatine Kinase 49 (30-135) U/L CK-MB (CK-2) 0.7 (0.0-2.4) ng/mL CK-MB (CK-2) Rel Index 1.4 Troponin I <0.012 (0.000-0.034) ng/mL Total Protein (6.3-8.2) g/dL Albumin (3.5-5.0) g/dL Lipase (23-300) U/L Urine Color Urine Appearance (Clear) Urine pH (5.0-8.0) Ur Specific [place] (1.001-1.035) Urine Protein (Negative) Urine Glucose (UA) (Negative) Urine Ketones (Negative) Urine Blood (Negative) Urine Nitrite (Negative) Urine Bilirubin (Negative) Urine Urobilinogen (<2.0) mg/dL Ur Leukocyte Esterase (Negative) Urine RBC (0-5) /hpf Urine WBC (0-5) /hpf Urine WBC Clumps (None) /hpf Ur Squamous Epith Cells (0-4) /hpf Urine Bacteria (None) /hpf Urine Mucus (None) /hpf Urine Opiates Screen (NotDetected) Ur Oxycodone Screen (NotDetected) Urine Methadone Screen (NotDetected) Ur Propoxyphene Screen (NotDetected) Ur Barbiturates Screen (NotDetected) U Tricyclic Antidepress (NotDetected) Ur Phencyclidine Scrn (NotDetected) Ur Amphetamines Screen (NotDetected) U Methamphetamines Scrn (NotDetected) U Benzodiazepines Scrn (NotDetected) Urine Cocaine Screen (NotDetected) U Marijuana (THC) Screen (NotDetected) 12/18/16 12/18/16 12/18/16 Range/Units 11:45 11:45 12:05 WBC (3.8-10.6) k/uL RBC (3.80-5.40) m/uL Hgb (11.4-16.0) gm/dL Hct (34.0-46.0) % MCV (80.0-100.0) fL MCH (25.0-35.0) pg MCHC (31.0-37.0) g/dL RDW (11.5-15.5) % Plt Count (150-450) k/uL Neutrophils % % Lymphocytes % % Monocytes % % Eosinophils % % Basophils % % Neutrophils # (1.3-7.7) k/uL Lymphocytes # (1.0-4.8) k/uL Monocytes # (0-1.0) k/uL Eosinophils # (0-0.7) k/uL Basophils # (0-0.2) k/uL Hypochromasia Anisocytosis Macrocytosis PT 11.0 (9.0-12.0) sec INR 1.1 (<1.1) APTT 23.6 (22.0-30.0) sec Sodium 135 L (137-145) mmol/L Potassium 5.1 (3.5-5.1) mmol/L Chloride 96 L (98-107) mmol/L Carbon Dioxide 27 (22-30) mmol/L Anion Gap 12 mmol/L BUN 56 H (7-17) mg/dL Creatinine 5.66 H* (0.52-1.04) mg/dL Est GFR (MDRD) Af Amer 9 (>60 ml/min/1.73 sqM) Est GFR (MDRD) Non-Af 7 (>60 ml/min/1.73 sqM) Glucose 159 H (74-99) mg/dL POC Glucose (mg/dL) 130 H (75-99) mg/dL POC Glu Log Handling Equipment Operator ID Mikayla Javier Calcium 8.8 (8.4-10.2) mg/dL Phosphorus 5.0 H (2.5-4.5) mg/dL Magnesium 2.4 H (1.6-2.3) mg/dL Total Bilirubin 0.6 (0.2-1.3) mg/dL AST 24 (14-36) U/L ALT 25 (9-52) U/L Alkaline Phosphatase 78 (38-126) U/L Ammonia (<30) umol/L Total Creatine Kinase (30-135) U/L CK-MB (CK-2) (0.0-2.4) ng/mL CK-MB (CK-2) Rel Index Troponin I (0.000-0.034) ng/mL Total Protein 5.9 L (6.3-8.2) g/dL Albumin 3.5 (3.5-5.0) g/dL Lipase 129 (23-300) U/L Urine Color Urine Appearance (Clear) Urine pH (5.0-8.0) Ur Specific [place] (1.001-1.035) Urine Protein (Negative) Urine Glucose (UA) (Negative) Urine Ketones (Negative) Urine Blood (Negative) Urine Nitrite (Negative) Urine Bilirubin (Negative) Urine Urobilinogen (<2.0) mg/dL Ur Leukocyte Esterase (Negative) Urine RBC (0-5) /hpf Urine WBC (0-5) /hpf Urine WBC Clumps (None) /hpf Ur Squamous Epith Cells (0-4) /hpf Urine Bacteria (None) /hpf Urine Mucus (None) /hpf Urine Opiates Screen (NotDetected) Ur Oxycodone Screen (NotDetected) Urine Methadone Screen (NotDetected) Ur Propoxyphene Screen (NotDetected) Ur Barbiturates Screen (NotDetected) U Tricyclic Antidepress (NotDetected) Ur Phencyclidine Scrn (NotDetected) Ur Amphetamines Screen (NotDetected) U Methamphetamines Scrn (NotDetected) U Benzodiazepines Scrn (NotDetected) Urine Cocaine Screen (NotDetected) U Marijuana (THC) Screen (NotDetected) 12/18/16 Range/Units 12:52 WBC (3.8-10.6) k/uL RBC (3.80-5.40) m/uL Hgb (11.4-16.0) gm/dL Hct (34.0-46.0) % MCV (80.0-100.0) fL MCH (25.0-35.0) pg MCHC (31.0-37.0) g/dL RDW (11.5-15.5) % Plt Count (150-450) k/uL Neutrophils % % Lymphocytes % % Monocytes % % Eosinophils % % Basophils % % Neutrophils # (1.3-7.7) k/uL Lymphocytes # (1.0-4.8) k/uL Monocytes # (0-1.0) k/uL Eosinophils # (0-0.7) k/uL Basophils # (0-0.2) k/uL Hypochromasia Anisocytosis Macrocytosis PT (9.0-12.0) sec INR (<1.1) APTT (22.0-30.0) sec Sodium (137-145) mmol/L Potassium (3.5-5.1) mmol/L Chloride (98-107) mmol/L Carbon Dioxide (22-30) mmol/L Anion Gap mmol/L BUN (7-17) mg/dL Creatinine (0.52-1.04) mg/dL Est GFR (MDRD) Af Amer (>60 ml/min/1.73 sqM) Est GFR (MDRD) Non-Af (>60 ml/min/1.73 sqM) Glucose (74-99) mg/dL POC Glucose (mg/dL) (75-99) mg/dL POC Glu Log Handling Equipment Operator ID Calcium (8.4-10.2) mg/dL Phosphorus (2.5-4.5) mg/dL Magnesium (1.6-2.3) mg/dL Total Bilirubin (0.2-1.3) mg/dL AST (14-36) U/L ALT (9-52) U/L Alkaline Phosphatase (38-126) U/L Ammonia (<30) umol/L Total Creatine Kinase (30-135) U/L CK-MB (CK-2) (0.0-2.4) ng/mL CK-MB (CK-2) Rel Index Troponin I (0.000-0.034) ng/mL Total Protein (6.3-8.2) g/dL Albumin (3.5-5.0) g/dL Lipase (23-300) U/L Urine Color Yellow Urine Appearance Cloudy H (Clear) Urine pH 8.0 (5.0-8.0) Ur Specific [place] 1.012 (1.001-1.035) Urine Protein 2+ H (Negative) Urine Glucose (UA) Negative (Negative) Urine Ketones Negative (Negative) Urine Blood Trace H (Negative) Urine Nitrite Negative (Negative) Urine Bilirubin Negative (Negative) Urine Urobilinogen <2.0 (<2.0) mg/dL Ur Leukocyte Esterase Large H (Negative) Urine RBC 5 (0-5) /hpf Urine WBC 124 H (0-5) /hpf Urine WBC Clumps Many H (None) /hpf Ur Squamous Epith Cells <1 (0-4) /hpf Urine Bacteria Moderate H (None) /hpf Urine Mucus Rare H (None) /hpf Urine Opiates Screen Not Detected (NotDetected) Ur Oxycodone Screen Not Detected (NotDetected) Urine Methadone Screen Not Detected (NotDetected) Ur Propoxyphene Screen Not Detected (NotDetected) Ur Barbiturates Screen Not Detected (NotDetected) U Tricyclic Antidepress Not Detected (NotDetected) Ur Phencyclidine Scrn Not Detected (NotDetected) Ur Amphetamines Screen Not Detected (NotDetected) U Methamphetamines Scrn Not Detected (NotDetected) U Benzodiazepines Scrn Not Detected (NotDetected) Urine Cocaine Screen Not Detected (NotDetected) U Marijuana (THC) Screen Not Detected (NotDetected) - Radiology Data Radiology results: report reviewed (Chest x-ray is negative for acute disease), image reviewed Disposition Clinical Impression: Altered mental status, Urinary tract infection, Fever Disposition: ADMITTED IP TO THIS [facility] Condition: Fair Referrals: Tone Adams MD [Primary Care Provider] - 1-2 days
[2016-12-18 12:06] LABS: Glucose,Whole Blood 130 mg/dL (75-99)
[2016-12-18 12:07] LABS: Anisocytosis Slight; Basophils # (A) 0.1 k/uL (0-0.2); Basophils % (A) 0 %; CH 32.6; CHCM 31.7; Eosinophils # (A) 0.3 k/uL (0-0.7); Eosinophils % (A) 1 %; HCT 34.6 % (34.0-46.0); HDW 2.55; HGB 10.9 gm/dL (11.4-16.0); Hypochromasia Slight; Luc # (Auto) 0.27; Luc % (Auto) 2; Lymphocytes # (A) 1.4 k/uL (1.0-4.8); Lymphocytes % (A) 8 %; MCH 32.5 pg (25.0-35.0); MCHC 31.5 g/dL (31.0-37.0); MCV 103.2 fL (80.0-100.0); Macrocytosis Moderate; Mean Platelet Volume 7.8; Monocytes # (A) 0.5 k/uL (0-1.0); Monocytes % (A) 3 %; Neutrophils # (A) 15.6 k/uL (1.3-7.7); Neutrophils % (A) 86 %; RBC 3.35 m/uL (3.80-5.40); RDW 17.1 % (11.5-15.5); WBC 18.1 k/uL (3.8-10.6); WBC (Perox) 18.65
[2016-12-18 12:19] LABS: INR 1.1 (<1.1); Partial Thromboplastin Time 23.6 sec (22.0-30.0)
[2016-12-18 12:21] LABS: Calcium 8.8 mg/dL (8.4-10.2); Magnesium 2.4 mg/dL (1.6-2.3); Potassium 5.1 mmol/L (3.5-5.1); Total Bilirubin 0.6 mg/dL (0.2-1.3); Total Protein 5.9 g/dL (6.3-8.2)
[2016-12-18 12:34] LABS: Creatine Kinase 49 U/L (30-135)
--- NOTE | 2016-12-18 12:34 | XR ---
EXAMINATION TYPE: XR chest 2V DATE OF EXAM: 12/18/2016 12:29 PM COMPARISON: Prior chest x-ray October 09, 2016. HISTORY: Altered mental status per order. Cough and weakness. TECHNIQUE: Frontal and lateral views of the chest are obtained. FINDINGS: Diminished inspiration is seen. There is no focal air space opacity, pleural effusion, or p neumothorax seen. The cardiac silhouette size is enlarged with atherosclerotic thoracic aorta and ce ntral vascular congestion. Metallic stent graft at aortic root is redemonstrated. Surgical change lef t coracoclavicular level is redemonstrated. IMPRESSION: Consider CHF exacerbation as there is cardiomegaly with new central vascular congestion f elt present. Clinical correlation advised.
[2016-12-18 12:45] LABS: Creatine Kinase MB 0.7 ng/mL (0.0-2.4); Troponin I <0.012 ng/mL (0.000-0.034)
[2016-12-18 13:22] LABS: Appearance,Urine Cloudy (Clear); Bacteria,Urine Moderate /hpf; Bilirubin,Urine Negative (Negative); Glucose,Urine (UA) Negative (Negative); Ketones,Urine Negative (Negative); Leukocyte Esterase,Urine Large (Negative); Mucus,Urine Rare /hpf; Nitrite,Urine Negative (Negative); Particle Count 132744; Protein,Urine 2+ (Negative); RBC,Urine 5 /hpf (0-5); Specific Gravity,Urine 1.012 (1.001-1.035); Squamous Epithelial Cell,Urine <1 /hpf (0-4); UA Billing (MACRO vs. MICRO) MICRO; Urobilinogen,Urine <2.0 mg/dL (<2.0); WBC,Urine 124 /hpf (0-5)
[2016-12-18 17:13] LABS: Glucose,Whole Blood 76 mg/dL (75-99)
[2016-12-18] MEDS ORDERED: HYDROcodone/APAP 5-325MG 1 EACH TAB PO PRN (17:40)
[2016-12-18] MEDS ORDERED: ALPRAZolam 0.25 MG TAB PO PRN (17:40)
[2016-12-18] MEDS: PREGABALIN 100 MG CAP PO SCH ×2 (18:21→22:22)
[2016-12-18] MEDS: SEVELAMER 800 MG TAB PO SCH (19:39)
[2016-12-18 20:10] LABS: Glucose,Whole Blood 86 mg/dL (75-99)
[2016-12-18] MEDS: ALBUTEROL NEBULIZED 2.5 MG/3 ML INHALATION SCH (20:44)
[2016-12-18] MEDS ORDERED: GELATIN SPONGE,ABSORB (SMALL) 1 EACH SPONGE ONE (20:48)
[2016-12-18] MEDS: risperiDONE 0.25 MG TAB PO SCH (20:57)
[2016-12-18] MEDS: busPIRone HCl 5 MG TAB PO SCH (20:57)
[2016-12-18] MEDS: MONTELUKAST 10 MG TAB PO SCH (20:57)
[2016-12-18] MEDS: ATORVASTATIN 10 MG TAB PO SCH (20:57)
[2016-12-18] MEDS ORDERED: NON-FORMULARY DRUG (Omega-3 Fatty Acids/Fish Oil [Fish Oil 1,000 Mg Softgel] 2 CAP) PO SCH (21:00)
[2016-12-19] MEDS: LEVOTHYROXINE 50 MCG TAB PO SCH (05:40)
[2016-12-19 07:14] LABS: Glucose,Whole Blood 105 mg/dL (75-99)
--- NOTE | 2016-12-19 07:14 | HP ---
DATE OF ADMISSION: CHIEF COMPLAINT: Change in mental status. HISTORY OF PRESENT ILLNESS: This 81-year-old woman with a past medical history of multiple medical problems including history of CAD, COPD, history of stage V chronic kidney disease on hemodialysis, hypertension, DJD, sleep apnea, history of diabetes mellitus, failure being followed by Dr. Tone Adams in the outpatient setting also history of UTIs also. Currently the family noticed that the patient had change in mental status. The patient was complaining of weak. Patient also having fever. Because of change in mental status, fever and shaking and other symptomatology, patient was taken to [facility] and admitted for further evaluation and treatment. White count was found to be 18.1. The patient also had creatinine 5.6 and patient also had evidence of UTI also. There is no history of any headache, loss of consciousness or seizures. The patient is mildly confused, able to give a sketchy history at this time. PAST MEDICAL HISTORY: History of asthma, COPD, history of diabetes mellitus, on hemodialysis, hypertension, DJD, chronic, appendectomy, breast surgery. Medications, home medications prior to admission: 1. Cetirizine 1 p.o. b.i.d. 2. Albuterol 2 puffs q.6 p.r.n. 3. BuSpar 5 mg q.h.s. 4. Zocor 20 mg q.h.s. 5. [place] 3 fatty acids 2 capsules q.h.s. 6. Singulair 10 mg q.h.s. 7. Ventolin 2.5 q.i.d. p.r.n. 8. Benadryl 50 mg p.o. t.i.d. 9. Renvela 1600 mg p.o. t.id.. 10. Lyrica 100 mg p.o. t.i.d. 11. Niacin 500 mg p.o. daily. 12. Multivitamin 1 p.o. daily. 13. ProAmatine 5 mg on Sunday, Sunday, Sunday. 14. Synthroid 50 mcg p.o. daily. 15. Lasix 40 mg p.o. Sunday, . 16. Drisdol 50,000 p.o. Sunday. 17. Cranberry Gummies. 18. Plavix 75 mg p.o. daily. 19. Calcium, magnesium, zinc 1 p.o. daily. 20. Ecotrin 81 mg daily. 21. Zyloprim 100 mg daily. 22. Xanax 0.25 mg q.h.s. Allergies are PENICILLIN, SHELLFISH, SULFA. FAMILY HISTORY: History of cancer in the family. SOCIAL HISTORY: Previous history of smoking. No history of current smoking or alcohol intake. REVIEW OF SYSTEMS: ENT: Diminishing hearing and diminished vision. CARDIOVASCULAR: No angina. RESPIRATORY: As mentioned earlier. GI: As mentioned earlier. : As mentioned earlier. NERVOUS SYSTEM: As mentioned earlier. ALLERGY/IMMUNOLOGY: As mentioned earlier. MUSCULOSKELETAL: As mentioned earlier. HEMATOLOGY/ONCOLOGY: No history of anemia. ENDOCRINE: As mentioned earlier. CONSTITUTIONAL: As mentioned earlier. DERMATOLOGY: Negative. RHEUMATOLOGY: Negative. PSYCHIATRY: As mentioned earlier. PHYSICAL EXAMINATION: Patient is alert and oriented x2. Pulse 77, blood pressure 164/70, respirations 18, temperature 98.4, pulse ox 94% on room air. HEENT: Conjunctivae normal. NECK: No jugular venous distention. CARDIOVASCULAR: S1 and S2, muffled. RESPIRATORY: Breath sounds diminished at the bases. Scattered rhonchi and crackles. ABDOMEN: Soft, nontender. No mass palpable. LEGS: Minimal edema. NERVOUS SYSTEM: High function as mentioned. Moves all 4 limbs. No focal deficits. LYMPHATICS: No lymphadenopathy of neck, axillae or groin. SKIN: No ulcer, rash or bleeding. LABS: WBC 18.1, hemoglobin is 10.9. Creatinine is 5.66. Magnesium is 2.4. UA noted. ASSESSMENT: 1. Urinary tract infection with sepsis, present on admission. 2. Change in mental status, metabolic encephalopathy, possibly secondary to sepsis, acute. 3. Chronic kidney disease, stage V, on hemodialysis. 4. Increased WBC. 5. Anemia, macrocytic secondary to renal disease. 6. Thrombocytopenia of undetermined etiology. 7. Hyponatremia possibly hypovolemic. 8. Obesity with body mass index of 36.8. 9. History of asthma, intermittent, chronic. 10. History of chronic obstructive pulmonary disease. 11. History of coronary artery disease. 12. History of diabetes mellitus type 2. 13. History of hyperlipidemia. 14. History of essential hypertension. 15. History of degenerative joint disease. 16. History of sleep apnea with no CPAP. 17. History of hiatal hernia. 18. History of gout. 19. History of chronic hypoxic respiratory failure, on home oxygen 3 L nasal cannula. 20. History of restless leg syndrome. 21. History of recurrent urinary tract infection with Escherichia coli and sepsis previously. 22. History of anxiety, not otherwise specified. 23. Remote history of nicotine dependence. 24. FULL CODE. RECOMMENDATIONS AND DISCUSSION: This 81-year-old woman who presented multiple complex medical issues, we will monitor the patient closely, continue the current medications. Continue with the symptomatic treatment. Will initiate broad-spectrum IV antibiotics, obtain cultures. Resume the home medications. DVT prophylaxis. Prognosis guarded because of multiple complex medical issues. Further recommendations to follow. A copy of dictation forwarded to Dr. Adams who is the primary physician. [id number]
[2016-12-19] MEDS: ASPIRIN 81 MG CHEW PO SCH (08:19)
[2016-12-19] MEDS: NIACIN TR 500 MG CAPSULE.ER PO SCH (08:19)
[2016-12-19] MEDS: SEVELAMER 800 MG TAB PO SCH ×3 (08:19→17:37)
[2016-12-19] MEDS: CLOPIDOGREL 75 MG TAB PO SCH (08:20)
[2016-12-19] MEDS: FUROSEMIDE 40 MG TAB PO SCH (08:20)
[2016-12-19] MEDS: ALLOPURINOL 100 MG TAB PO SCH (08:20)
[2016-12-19] MEDS: ALBUTEROL NEBULIZED 2.5 MG/3 ML INHALATION SCH ×3 (08:24→20:12)
[2016-12-19] MEDS: PREGABALIN 100 MG CAP PO SCH ×3 (08:27→20:11)
[2016-12-19 08:43] LABS: Calcium 8.5 mg/dL (8.4-10.2); Potassium 5.2 mmol/L (3.5-5.1)
[2016-12-19] MEDS ORDERED: cefTRIAXone 1,000 MG in SODIUM CHLORIDE 0.9% 100 ML IVPB SCH (09:00)
[2016-12-19] MEDS ORDERED: ENOXAPARIN 40 MG/0.4 ML SYRINGE SQ SCH (09:00)
[2016-12-19 10:04] LABS: Anisocytosis Slight; Basophils % (A) 0 %; CH 32.3; CHCM 31.8; Eosinophils # (A) 1.3 k/uL (0-0.7); Eosinophils % (A) 13 %; HDW 2.66; HGB 11.1 gm/dL (11.4-16.0); Hypochromasia Slight; Luc # (Auto) 0.36; Luc % (Auto) 4; Lymphocytes # (A) 1.7 k/uL (1.0-4.8); Lymphocytes % (A) 16 %; MCH 33.3 pg (25.0-35.0); MCHC 32.7 g/dL (31.0-37.0); MCV 101.8 fL (80.0-100.0); Macrocytosis Moderate; Mean Platelet Volume 8.3; Monocytes # (A) 0.6 k/uL (0-1.0); Monocytes % (A) 6 %; Neutrophils # (A) 6.3 k/uL (1.3-7.7); Neutrophils % (A) 61 %; RBC 3.34 m/uL (3.80-5.40); RDW 17.2 % (11.5-15.5); WBC 10.4 k/uL (3.8-10.6); WBC (Perox) 9.96
[2016-12-19] MEDS: diphenhydrAMINE 25 MG CAP PO PRN ×2 (11:19→20:06)
[2016-12-19 11:20] LABS: Glucose,Whole Blood 128 mg/dL (75-99)
[2016-12-19] MEDS: FOLIC ACID 1 MG TAB PO SCH (11:20)
[2016-12-19] MEDS: THIAMINE 100 MG TAB PO SCH (11:20)
[2016-12-19] MEDS: MULTIVITAMINS, THERA 1 EACH TAB PO SCH (11:20)
--- NOTE | 2016-12-19 11:26 | P.NPCON ---
History of Present Illness - Reason for Consult end stage renal disease - History of Present Illness Reason for consultation: End-stage renal disease History of present illness: Patient is a 81-year-old female seen in renal consultation for end-stage renal disease. She is maintained on hemodialysis on a Sunday schedule via left upper extremity AV fistula. Patient presented to the hospital with fever and chills. She hasn't had a significant fever in the hospital. She does have history of urinary tract infections and does have dysuria. Denies chest pain or shortness of breath. There was concern for confusion but she is currently awake and alert. No vomiting or diarrhea. Hemodynamically she stable. Appetite is good. Urine cultures currently pending. She is currently maintained on IV antibiotics. She does complain of itchiness particularly in her neck and her face. Vital signs are stable. General: The patient appeared well nourished and normally developed. HEENT: Head exam is unremarkable. Neck is without jugular venous distension. LUNGS: Lungs are clear to auscultation and percussion. Breath sounds decreased. HEART: Rate and Rhythm are regular. First and second heart sounds normal. No murmurs, rubs or gallops. ABDOMEN: Abdominal exam reveals normal bowel sounds. Non-tender and non- distended. No evidence of peritonitis. EXTREMITITES: No clubbing, cyanosis, or edema. Past Medical History Past Medical History: Asthma, Coronary Artery Disease (CAD), COPD, Diabetes Mellitus, Dialysis, Hyperlipidemia, Hypertension, Osteoarthritis (OA), Renal Disease, Sleep Apnea/CPAP/BIPAP, Thyroid Disorder Additional Past Medical History / Comment(s): Diabetes-no longer on medications , peripheral neuropathy bilateral hands and feet, migraines,GARRETT with no CPAP used, hiatal hernia, diverticulitis, gout bilateral ankles and feet, recent open sore in rectal area-not certain if healed, sore below L buttock, ESRD- hemodialysis- on MOWEFR, anemia r/t renal dx, O2 -3 liters n/c PRN, djd, possible RLS, arthritis bilateral knees/hands-wears bilateral knee braces ( knees will buckle), hypothyroid, UTIs with recent UTI with Ecoli/sepsis and bronchitis. History of Any Multi-Drug Resistant Organisms: None Reported Past Surgical History: Appendectomy, Breast Surgery, Cholecystectomy, Heart Catheterization, Hysterectomy, Orthopedic Surgery Additional Past Surgical History / Comment(s): left shoulder surgery, bilateral breast benign tumors, dialysis cather rt side of chest since removed), fistula left arm, bilateral cataracts, aortic valve replacement, ivis, colonoscopy, bilateral knee injections. Past Anesthesia/Blood Transfusion Reactions: Previous Problems w/ Anesthesia Additional Past Anesthesia/Blood Transfusion Reaction / Comment(s): "slow to come out" Past Psychological History: Anxiety Additional Psychological History / Comment(s): Pt resides at home. She has a production support developer. She also has a steve, Brionna who is very active in her care. She is currently receiving [facility] home care-a nurse and PT. She normally ambulates with a walker but recently she has been spending most time in a wheelchair. Her steve or production support developer, take her to [facility]. Smoking Status: Former smoker Past Alcohol Use History: None Reported Additional Past Alcohol Use History / Comment(s): patient started smoking at age 18(3) and stopped in [address] drug or alcohol use. No recent travel. No service. Patient lives in her own home and has a caregiver Marcela and her daughter caring for her. Past Drug Use History: None Reported - Past Family History Father Family Medical History: Myocardial Infarction ([place]) Mother Family Medical History: No Reported History Additional Family Medical History / Comment(s): from old age. Daughter(s) Family Medical History: Cancer Medications and Allergies Home Medications Medication Instructions Recorded Confirmed Type Albuterol Nebulized [Ventolin 2.5 mg INHALATION RT-QID PRN 06/09/15 12/18/16 History Nebulized] Allopurinol [Zyloprim] 100 mg PO DAILY 06/09/15 12/18/16 History Cetirizine HCl/Pseudoephedrine 1 tab PO BID 06/09/15 12/18/16 History [Zyrtec-D Tablet] Furosemide [Lasix] 40 mg PO TUTH 06/09/15 12/18/16 History Levothyroxine Sodium [Synthroid] 50 mcg PO DAILY 06/09/15 12/18/16 History Midodrine [ProAmatine] 5 mg PO MOWEFR 06/09/15 12/18/16 History Multivitamins, Thera [Multivitamin 1 tab PO DAILY 06/09/15 12/18/16 History (formulary)] Niacin 500 mg PO DAILY 06/09/15 12/18/16 History Sevelamer [Renvela] 1,600 mg PO TID 06/09/15 12/18/16 History Simvastatin [Zocor] 20 mg PO HS 06/09/15 12/18/16 History Clopidogrel Bisulfate [Plavix] 75 mg PO DAILY 07/21/16 12/18/16 History Montelukast [Singulair] 10 mg PO HS 07/21/16 12/18/16 History busPIRone HCl [Buspar] 5 mg PO HS 07/21/16 12/18/16 History Aspirin EC [Ecotrin Low Dose] 81 mg PO DAILY 08/16/16 12/18/16 History Calcium/Magnesium/Zinc 1 tab PO DAILY 08/16/16 12/18/16 History [Ijoanlb-Ltwnjmufw-Lwal Tablet] Ergocalciferol [Vitamin D2 50,000 unit PO MO 08/16/16 12/18/16 History (DRISDOL)] [place]-3 Fatty Acids/Fish Oil [Fish 2 cap PO HS 08/16/16 12/18/16 History Oil 1,000 mg Softgel] Pregabalin [Lyrica] 100 mg PO TID 10/09/16 12/18/16 History ALPRAZolam [Xanax] 0.25 mg PO HS 12/18/16 12/18/16 History Albuterol Inhaler [Ventolin Hfa 2 puff INHALATION RT-Q6H PRN 12/18/16 12/18/16 History Inhaler] Cranberry Gummies 1 tab PO BID 12/18/16 12/18/16 History diphenhydrAMINE HCL [Benadryl] 50 mg PO TID 12/18/16 12/18/16 History Allergies Allergy/AdvReac Type Severity Reaction Status Date / Time Penicillins Allergy Dyspnea/Yves Verified 12/18/16 12:38 h shellfish derived [Shellfish] Allergy Dyspnea Verified 12/18/16 12:38 Sulfa (Sulfonamide Allergy Unknown Verified 12/18/16 12:38 Antibiotics) Childhood Physical Exam Vitals: Vital Signs Temp Pulse Pulse Resp BP BP Pulse Ox 12/19/16 08:32 76 12/19/16 08:25 76 93 L 12/19/16 07:00 97.7 F 74 18 159/73 96 12/18/16 21:20 97.5 F L 83 16 125/66 95 12/18/16 20:50 76 12/18/16 20:39 76 12/18/16 15:49 98.4 F 77 18 164/70 94 L 12/18/16 14:35 97.7 F 84 18 135/85 99 Intake and Output 12/18/16 12/19/16 12/19/16 22:59 06:59 14:59 Intake Total 65 160 Balance 65 160 Intake: Intake, IV Titration 65 160 Amount Sodium Chloride 0.9% 65 160 000 ml @ 20 mls/hr IV . Q24H ONE Rx#:[id number] Other: # Voids 1 Results - Lab Results Most recent lab results Calcium 8.5 mg/dL (8.4-10.2) 12/19/16 07:16 Phosphorus 5.0 mg/dL (2.5-4.5) H 12/18/16 11:45 Magnesium 2.4 mg/dL (1.6-2.3) H 12/18/16 11:45 12/19/16 07:16 12/19/16 07:16 Assessment and Plan Plan: Assessment: #1. End-stage renal disease maintained on hemodialysis on a Sunday schedule via left upper extremity AV fistula. #2. Urinary tract infection. #3. Chronic kidney disease mineral bone disease. #4. Hypertension with chronic kidney disease. Controlled. Plan: Hemodialysis tomorrow with goal to liters ultrafiltration. Follow-up urine culture. Maintain antibiotics. Hydrocortisone cream to be applied to the site of itchiness. Thank you for the consultation. I will continue to follow the patient with you during her hospital stay.
[2016-12-19 14:26] VITALS: BMI 36.8
[2016-12-19] MEDS ORDERED: HYDROCORTISONE 1% CREAM 30 GM TUBE TOPICAL PRN (15:38)
[2016-12-19 17:00] LABS: Glucose,Whole Blood 155 mg/dL (75-99)
[2016-12-19] MEDS: busPIRone HCl 5 MG TAB PO SCH (20:06)
[2016-12-19] MEDS: ATORVASTATIN 10 MG TAB PO SCH (20:06)
[2016-12-19] MEDS: risperiDONE 0.25 MG TAB PO SCH (20:07)
[2016-12-19 20:14] LABS: Glucose,Whole Blood 173 mg/dL (75-99)
[2016-12-19] MEDS: INSULIN LISPRO (humaLOG) 300 UNIT/3 ML VIAL SQ SCH (21:12)
[2016-12-19] MEDS: MONTELUKAST 10 MG TAB PO SCH (21:14)
--- NOTE | 2016-12-19 21:46 | PN ---
DATE OF SERVICE: 12/19/2016 This 81-year-old woman who was admitted with a UTI and sepsis also had some change in mental status. The patient is slightly better today. Dr. Wang is following the patient for hemodialysis. Cultures are negative so far. Patient is on broad-spectrum IV antibiotics empirically. Patient is also complaining of severe itching, necessitating Benadryl as well. Past medical history reviewed. REVIEW OF SYSTEMS: CARDIOVASCULAR SYSTEM: No angina, palpitations. RESPIRATORY: As mentioned earlier. GI: No nausea, vomiting. : No dysuria, retention. NERVOUS SYSTEM: As mentioned earlier. ALLERGY/IMMUNOLOGY: No asthma, hayfever. CURRENT MEDICATIONS: 1. [place] 5 mg q.6 p.r.n. 2. Ventolin. 3. Zyloprim. 4. Xanax. 5. Aspirin 81 mg. 6. Lipitor. 8. Buspar. 9. Rocephin 1 gram daily. 10. Plavix 75 mg p.o. daily. 11. Benadryl 50 mg t.i.d. p.r.n. 12. Lovenox 30 mg daily p.r.n. 13. Vitamin D2. 14. Folic acid 1 mg. 15. Lasix 40 mg. 16. Hydrocortisone cream. 17. Synthroid. 18. Singulair. 19. Multivitamins. 20. Lyrica. 21. Risperdal. 22. Renvela. 23. Vitamin B1. PHYSICAL EXAMINATION: Patient is alert and oriented x2, mildly confused. Pulse 74, blood pressure 159/73, respiration 18, temperature 97.7, pulse ox 96% on room air. HEENT: Conjunctivae normal. Oral mucosa moist. NECK: No jugular venous distention. No carotid bruit. No lymph node enlargement. CARDIOVASCULAR SYSTEM: S1, S2 muffled. RESPIRATORY SYSTEM: Breath sounds diminished at the bases. A few scattered rhonchi and crackles. ABDOMEN: Soft, non-tender. LEGS: No edema. No swelling. NERVOUS SYSTEM: No focal deficit. Labs at this time show WBC 10.4, hemoglobin 11.1. Creatinine is 3.94. ASSESSMENT: 1. Urinary tract infection with sepsis, present on admission. 2. Change in mental status, metabolic encephalopathy, possibly secondary to sepsis, acute. 3. Chronic kidney disease, stage V, on hemodialysis. 4. Increased white count. 5. Anemia, macrocytic, secondary to renal disease. 6. Thrombocytopenia of undetermined etiology. 7. Hyponatremia, possibly hypovolemic. 8. Obesity with body mass index of 36.8. 9. History of asthma, intermittent, chronic. 10. History of chronic obstructive pulmonary disease. 11. History of coronary artery disease. 12. History of diabetes mellitus, type 2. 13. History of hyperlipidemia. 14. Essential hypertension. 15. History of degenerative joint disease. 16. Sleep apnea, on no CPAP. 17. History of hiatal hernia. 18. History of gout. 19. History of chronic hypoxic respiratory failure, on home oxygen 3 liters nasal cannula. 20. History of restless leg syndrome. 21. History of recurrent urinary tract infection with Escherichia coli and sepsis previously. 22. History of anxiety not otherwise specified. 23. Remote history of nicotine dependence. 24. FULL CODE. RECOMMENDATIONS AND DISCUSSION: I recommend to continue with the current medications, continue with the monitoring, symptomatic treatment. Otherwise, at this time we will monitor the patient closely. Broad-spectrum IV antibiotics. Hemodialysis. Continue the rest of the medications. Guarded prognosis. Repeat labs. Further recommendations to follow. MTDD
[2016-12-20] MEDS: LEVOTHYROXINE 50 MCG TAB PO SCH (06:12)
[2016-12-20] MEDS: diphenhydrAMINE 25 MG CAP PO PRN ×3 (06:18→19:30)
[2016-12-20 07:33] LABS: Glucose,Whole Blood 87 mg/dL (75-99)
[2016-12-20] MEDS: SEVELAMER 800 MG TAB PO SCH ×3 (07:40→18:28)
[2016-12-20] MEDS: ALLOPURINOL 100 MG TAB PO SCH (07:40)
[2016-12-20] MEDS: INSULIN LISPRO (humaLOG) 300 UNIT/3 ML VIAL SQ SCH ×4 (07:40→20:42)
[2016-12-20] MEDS: ENOXAPARIN 30 MG/0.3 ML SYRINGE SQ SCH (07:41)
[2016-12-20] MEDS: NIACIN TR 500 MG CAPSULE.ER PO SCH (07:41)
[2016-12-20] MEDS: ASPIRIN 81 MG CHEW PO SCH (07:41)
[2016-12-20] MEDS: CLOPIDOGREL 75 MG TAB PO SCH (07:41)
[2016-12-20] MEDS: PREGABALIN 100 MG CAP PO SCH ×4 (07:44→20:44)
[2016-12-20 07:51] LABS: Hemoglobin A1C 5.2 % (4.2-6.1)
[2016-12-20] MEDS: ALBUTEROL NEBULIZED 2.5 MG/3 ML INHALATION SCH ×3 (08:38→20:35)
[2016-12-20 09:47] LABS: Anisocytosis Slight; Basophils % (A) 0 %; CH 31.6; CHCM 30.5; Eosinophils # (A) 0.9 k/uL (0-0.7); Eosinophils % (A) 10 %; HCT 33.4 % (34.0-46.0); HDW 2.57; HGB 10.3 gm/dL (11.4-16.0); Hypochromasia Moderate; Luc # (Auto) 0.23; Luc % (Auto) 3; Lymphocytes # (A) 1.5 k/uL (1.0-4.8); Lymphocytes % (A) 18 %; MCH 32.2 pg (25.0-35.0); MCV 103.8 fL (80.0-100.0); Macrocytosis Moderate; Mean Platelet Volume 7.6; Monocytes # (A) 0.4 k/uL (0-1.0); Monocytes % (A) 5 %; Neutrophils # (A) 5.4 k/uL (1.3-7.7); Neutrophils % (A) 64 %; RBC 3.21 m/uL (3.80-5.40); RDW 16.7 % (11.5-15.5); WBC 8.4 k/uL (3.8-10.6); WBC (Perox) 8.91
[2016-12-20 10:24] LABS: Calcium 8.6 mg/dL (8.4-10.2)
[2016-12-20 11:38] LABS: Glucose,Whole Blood 95 mg/dL (75-99)
--- NOTE | 2016-12-20 11:43 | P.PN ---
Subjective Patient is seen in follow-up for end-stage renal disease. She is maintained on hemodialysis on a Sunday schedule via left upper extremity AV graft. Patient presented to the hospital with altered mental status and a fever. Her cultures have been negative. She is maintained on antibiotics. Denies chest pain or shortness of breath. No vomiting or diarrhea. Vital signs are stable. General: The patient appeared well nourished and normally developed. HEENT: Head exam is unremarkable. Neck is without jugular venous distension. LUNGS: Lungs are clear to auscultation and percussion. Breath sounds decreased. HEART: Rate and Rhythm are regular. First and second heart sounds normal. No murmurs, rubs or gallops. ABDOMEN: Abdominal exam reveals normal bowel sounds. Non-tender and non- distended. No evidence of peritonitis. EXTREMITITES: No clubbing, cyanosis, or edema. Objective - Vital Signs Vital signs: Vital Signs Temp 97.6 F 12/20/16 07:00 Pulse 76 12/20/16 08:45 Resp 20 12/20/16 07:00 BP 152/65 12/20/16 07:00 Pulse Ox 94 L 12/20/16 08:35 Intake & Output 12/19/16 12/20/16 12/20/16 18:59 06:59 18:59 Intake Total 170 560 Balance 170 560 Weight 79.832 kg Intake: Intake, IV Titration 170 160 Amount Sodium Chloride 0.9% 1, 120 160 000 ml @ 20 mls/hr IV . Q24H ONE Rx#:[id number] cefTRIAXone 1,000 mg In 50 Sodium Chloride 0.9% 50 ml @ 100 mls/hr IVPB Q24HR [facility] Rx#:[id number] Oral 400 Other: # Voids 1 1 - Labs CBC & Chem 7: 12/20/16 08:54 12/20/16 08:54 Labs: Abnormal Lab Results - Last 24 Hours (Table) 12/19/16 12/19/16 12/20/16 Range/Units 16:58 20:11 08:54 RBC 3.21 L (3.80-5.40) m/uL Hgb 10.3 L (11.4-16.0) gm/dL Hct 33.4 L (34.0-46.0) % MCV 103.8 H (80.0-100.0) fL RDW 16.7 H (11.5-15.5) % Plt Count 124 L (150-450) k/uL Eosinophils # 0.9 H (0-0.7) k/uL BUN (7-17) mg/dL Creatinine (0.52-1.04) mg/dL Glucose (74-99) mg/dL POC Glucose (mg/dL) 155 H 173 H (75-99) mg/dL 12/20/16 Range/Units 08:54 RBC (3.80-5.40) m/uL Hgb (11.4-16.0) gm/dL Hct (34.0-46.0) % MCV (80.0-100.0) fL RDW (11.5-15.5) % Plt Count (150-450) k/uL Eosinophils # (0-0.7) k/uL BUN 40 H (7-17) mg/dL Creatinine 5.25 H* (0.52-1.04) mg/dL Glucose 125 H (74-99) mg/dL POC Glucose (mg/dL) (75-99) mg/dL Microbiology - Last 24 Hours (Table) 12/18/16 18:32 Blood Culture - Preliminary Blood No Growth after 24 hours Assessment and Plan Plan: Assessment: #1. End-stage renal disease maintained on hemodialysis on a Sunday schedule via left upper extremity AV fistula. #2. Questionable Urinary tract infection. Urine culture has not been drawn as of now. #3. Chronic kidney disease mineral bone disease. #4. Hypertension with chronic kidney disease. Controlled. #5. Chronic kidney disease mineral bone disease. Plan: Hemodialysis today with goal 2 liters ultrafiltration. Follow-up urine culture. Okay to straight cath to obtain urine sample. Will also obtain cultures from the catheter during dialysis today. Maintain antibiotics. Hydrocortisone cream to be applied to the site of itchiness. Maintain Renvela with meals.
[2016-12-20] MEDS ORDERED: VANCOMYCIN 1,000 MG in SODIUM CHLORIDE 0.9% 250 ML IVPB STA (11:54)
[2016-12-20] MEDS: THIAMINE 100 MG TAB PO SCH (11:56)
[2016-12-20] MEDS: MULTIVITAMINS, THERA 1 EACH TAB PO SCH (11:56)
[2016-12-20] MEDS: FOLIC ACID 1 MG TAB PO SCH (11:56)
[2016-12-20] MEDS ORDERED: MIDODRINE 5 MG TAB PO SCH (12:00)
--- NOTE | 2016-12-20 15:06 | PN ---
An 81-year-old admitted with sepsis and leukocytosis, improving. The possible source of sepsis is mostly urinary tract infection as he did have clear-cut symptoms of UTI and other possibility is patient is on hemodialysis, bacteremia from Staphylococcus is a consideration because of which patient is on both Rocephin for UTI and vancomycin. The possibility of bacteremia is low. Until we get the finalization of the cultures, will continue both the antibiotics and if patient's blood cultures are negative tomorrow, patient will be discharged on either Ceftin or fluoroquinlone tomorrow to complete the treatment for urinary tract infection, although I do not have any of the urine cultures available at this point of time unfortunately. REVIEW OF SYSTEMS: CARDIOVASCULAR: No chest pain, no orthopnea, no PND, no palpitations. PULMONARY: Denied any shortness of breath. No cough or hemoptysis. GASTROINTESTINAL: No diarrhea, nausea or vomiting. No abdominal pain. Normoactive bowel sounds. NEUROLOGIC: No headaches, no weakness, no numbness. Medications were reviewed. PHYSICAL EXAMINATION: VITAL SIGNS: Temperature 97.6, pulse of 80, respiratory rate of 20, blood pressure is 152/65. Saturating at 94% on room air. GENERAL: The patient is alert and oriented x3, not in any acute distress. Well developed, well nourished. HEENT: Pupils are round and equally reacting to light. EOMI. No scleral icterus. No conjunctival pallor. Normocephalic, atraumatic. No pharyngeal erythema. No thyromegaly. CARDIOVASCULAR: S1 and S2 present. No murmurs, rubs, or gallops. PULMONARY: Chest is clear to auscultation, no wheezing or crackles. ABDOMEN: Soft, nontender, nondistended, normoactive bowel sounds. No palpable organomegaly. MUSCULOSKELETAL: No joint swelling or deformity. EXTREMITIES: No cyanosis, clubbing, or pedal edema. NEUROLOGICAL: Gross neurological examination did not reveal any focal deficits. SKIN: No rashes. LABORATORY DATA: CBC, CMP are abnormal for elevated BUN and creatinine of 40 and 5.25. Patient is an endstage renal disease patient. ASSESSMENT AND PLAN: 1. Sepsis secondary to urinary tract infection. 2. Toxic encephalopathy from sepsis, which improved. 3. Endstage renal disease on hemodialysis. Continue with hemodialysis. 4. Anemia of chronic kidney disease along with mild thrombocytopenia. 5. Hypovolemic hyponatremia, which is resolved. 6. Chronic intermittent asthma without any acute exacerbation. 7. Coronary artery disease. 8. Type 2 diabetes mellitus. 9. Hyperlipidemia. 10. Hypertension. 11. Sleep apnea. Does not use any CPAP machine at home. 12. Gout. 13. Gastroesophageal reflux disease. For above-mentioned chronic medical problems, I will go ahead and continue her home medications. Management as mentioned in the interval history.
[2016-12-20 17:30] LABS: Glucose,Whole Blood 94 mg/dL (75-99)
[2016-12-20] MEDS ORDERED: GELATIN SPONGE,ABSORB (SMALL) 1 EACH SPONGE ONE (18:00)
[2016-12-20] MEDS: ATORVASTATIN 10 MG TAB PO SCH (19:30)
[2016-12-20] MEDS: risperiDONE 0.25 MG TAB PO SCH (19:30)
[2016-12-20] MEDS: busPIRone HCl 5 MG TAB PO SCH (19:31)
[2016-12-20] MEDS: MONTELUKAST 10 MG TAB PO SCH (19:31)
[2016-12-20 20:23] LABS: Glucose,Whole Blood 206 mg/dL (75-99)
[2016-12-21] MEDS: diphenhydrAMINE 25 MG CAP PO PRN (06:19)
[2016-12-21] MEDS: LEVOTHYROXINE 50 MCG TAB PO SCH (06:19)
[2016-12-21 07:25] LABS: Glucose,Whole Blood 90 mg/dL (75-99)
[2016-12-21] MEDS: ALBUTEROL NEBULIZED 2.5 MG/3 ML INHALATION SCH ×2 (07:50→13:11)
[2016-12-21 08:25] VITALS: BP 150/67; PULSE 74; RESP 20; TEMP 98.3
[2016-12-21 08:30] LABS: Potassium 4.7 mmol/L (3.5-5.1)
[2016-12-21 08:37] LABS: Anisocytosis Slight; Aty Lym Flag Slight; CH 31.9; CHCM 31.3; Hypochromasia Slight; MCHC 33.3 g/dL (31.0-37.0); MCV 102.2 fL (80.0-100.0); Macrocytosis Moderate; Mean Platelet Volume 7.8; RBC 2.93 m/uL (3.80-5.40); RDW 16.5 % (11.5-15.5); WBC 4.8 k/uL (3.8-10.6); WBC (Perox) 4.05
[2016-12-21] MEDS: INSULIN LISPRO (humaLOG) 300 UNIT/3 ML VIAL SQ SCH (08:57)
[2016-12-21] MEDS: SEVELAMER 800 MG TAB PO SCH ×2 (09:15→09:16)
[2016-12-21] MEDS: ENOXAPARIN 30 MG/0.3 ML SYRINGE SQ SCH (09:15)
[2016-12-21] MEDS: NIACIN TR 500 MG CAPSULE.ER PO SCH (09:15)
[2016-12-21] MEDS: FUROSEMIDE 40 MG TAB PO SCH (09:15)
[2016-12-21] MEDS: ALLOPURINOL 100 MG TAB PO SCH (09:16)
[2016-12-21] MEDS: ASPIRIN 81 MG CHEW PO SCH (09:16)
[2016-12-21] MEDS: CLOPIDOGREL 75 MG TAB PO SCH (09:16)
--- NOTE | 2016-12-21 10:18 | P.PN ---
Subjective Patient is seen in follow-up for end-stage renal disease. She is maintained on hemodialysis on a Sunday schedule via left upper extremity AV graft. Patient presented to the hospital with altered mental status and a fever. Her cultures have been negative. She is maintained on antibiotics. Denies chest pain or shortness of breath. No vomiting or diarrhea. Difficult to obtain a urine culture as only makes minimal urine. Her mental status is back to baseline and she has no active complaint at this time. Vital signs are stable. General: The patient appeared well nourished and normally developed. HEENT: Head exam is unremarkable. Neck is without jugular venous distension. LUNGS: Lungs are clear to auscultation and percussion. Breath sounds decreased. HEART: Rate and Rhythm are regular. First and second heart sounds normal. No murmurs, rubs or gallops. ABDOMEN: Abdominal exam reveals normal bowel sounds. Non-tender and non- distended. No evidence of peritonitis. EXTREMITITES: No clubbing, cyanosis, or edema. Objective - Vital Signs Vital signs: Vital Signs Temp 98.3 F 12/21/16 07:00 Pulse 83 12/21/16 08:01 Resp 20 12/21/16 07:00 BP 150/67 12/21/16 07:00 Pulse Ox 95 12/21/16 07:00 Intake & Output 12/20/16 12/21/16 12/21/16 18:59 06:59 18:59 Intake Total 840 Balance 840 Intake: IV 200 0.9 @20 200 Oral 640 Other: # Voids 1 1 - Labs CBC & Chem 7: 12/21/16 07:14 12/21/16 07:14 Labs: Abnormal Lab Results - Last 24 Hours (Table) 12/20/16 12/20/16 12/21/16 Range/Units 08:54 20:21 07:14 RBC 2.93 L (3.80-5.40) m/uL Hgb 10.0 L (11.4-16.0) gm/dL Hct 30.0 L (34.0-46.0) % MCV 102.2 H (80.0-100.0) fL RDW 16.5 H (11.5-15.5) % Plt Count 119 L (150-450) k/uL Sodium (137-145) mmol/L BUN 40 H (7-17) mg/dL Creatinine 5.25 H* (0.52-1.04) mg/dL Glucose 125 H (74-99) mg/dL POC Glucose (mg/dL) 206 H (75-99) mg/dL 12/21/16 Range/Units 07:14 RBC (3.80-5.40) m/uL Hgb (11.4-16.0) gm/dL Hct (34.0-46.0) % MCV (80.0-100.0) fL RDW (11.5-15.5) % Plt Count (150-450) k/uL Sodium 135 L (137-145) mmol/L BUN 24 H (7-17) mg/dL Creatinine 3.66 H (0.52-1.04) mg/dL Glucose (74-99) mg/dL POC Glucose (mg/dL) (75-99) mg/dL Microbiology - Last 24 Hours (Table) 12/18/16 18:32 Blood Culture - Preliminary Blood No Growth after 48 hours Assessment and Plan Plan: Assessment: #1. End-stage renal disease maintained on hemodialysis on a Sunday schedule via left upper extremity AV fistula. #2. Questionable Urinary tract infection. Urine culture not done due to inadequate urine output. #3. Chronic kidney disease mineral bone disease. #4. Hypertension with chronic kidney disease. Controlled. #5. Chronic kidney disease mineral bone disease. Plan: Hemodialysis tomorrow with goal 2 liters ultrafiltration. Maintain antibiotics. Hydrocortisone cream to be applied to the site of itchiness. Maintain Renvela with meals. Potential discharge today with oral antibiotics. Urine culture prior was positive for E. coli and she did receive IV Rocephin during this admission.
[2016-12-21 10:51] LABS: Add Differential Manual Differential
[2016-12-21 10:53] LABS: Nucleated Red Blood Cells 0 /100 WBC (0-0); Total Cells Counted 100
[2016-12-21 11:35] LABS: Glucose,Whole Blood 153 mg/dL (75-99)
--- NOTE | 2016-12-22 11:14 | DS ---
DATE OF ADMISSION: 12/18/2016 DATE OF DISCHARGE: 12/21/2016 ADDENDUM: DISCHARGE DIET: Cardiac renal diet and diabetic 1800 calorie diet. FOLLOWUP: Follow up as mentioned above activity. ACTIVITY: As tolerated. DISPOSITION: The patient is being discharged home with home care. I spent greater than 35 minutes in total discharge process.
--- NOTE | 2016-12-22 11:20 | DS ---
DATE OF ADMISSION: 12/18/2016 DATE OF DISCHARGE: 12/21/2016 Patient is an 81-year-old admitted with sepsis secondary to urinary tract infection and patient had E. coli in the past which was ( ). Patient is being discharged on 5 more days of ciprofloxacin completing a total course total course of therapy for about 7 to 8 days and patient will follow with her primary care physician in 3 to 7 days. Follow with Nephrology as scheduled. Activity as tolerated. Patient's strength is back now and patient is clinically doing well and patient's functionality is at her baseline. Patient was seen and examined on the day of discharge. Vitals are stable. PHYSICAL EXAMINATION: GENERAL: The patient is alert and oriented x3, not in any acute distress. Well developed, well nourished. HEENT: Pupils are round and equally reacting to light. EOMI. No scleral icterus. No conjunctival pallor. Normocephalic, atraumatic. No pharyngeal erythema. No thyromegaly. CARDIOVASCULAR: S1 and S2 present. No murmurs, rubs, or gallops. PULMONARY: Chest is clear to auscultation, no wheezing or crackles. ABDOMEN: Soft, nontender, nondistended, normoactive bowel sounds. No palpable organomegaly. MUSCULOSKELETAL: No joint swelling or deformity. EXTREMITIES: No cyanosis, clubbing, or pedal edema. NEUROLOGICAL: Gross neurological examination did not reveal any focal deficits. SKIN: No rashes. FINAL DIAGNOSES: 1. Sepsis secondary to urinary tract infection. 2. Toxic encephalopathy from sepsis, which improved. 3. Endstage renal disease, on hemodialysis. 4. Anemia of chronic kidney disease along with mild thrombocytopenia. 5. Hypovolemic hyponatremia, which resolved. 6. Chronic intermittent asthma. 7. Coronary artery disease. 8. Type 2 diabetes mellitus. 9. Hyperlipidemia. 10. Hypertension. 11. Sleep apnea. 12. Gout. 13. Gastroesophageal reflux disease.
[2016-12-25] MEDS ORDERED: ERGOCALCIFEROL 50,000 UNIT CAP PO SCH (09:00)
== END 2016-12-21 13:20 | disposition home health service (06) | DRG 871 ==
LOC: EC 11:14 → 5ONC 14:02
PROVIDERS: ADMIT Hospitalist; ATTEND Hospitalist
PROC: 5A1D60Z (ICD-10-PCS; principal; 2016-12-18)
DX: A41.9 Sepsis, unspecified organism (principal); G92 Toxic encephalopathy; J96.11 Chronic respiratory failure with hypoxia; I12.0 Hypertensive chronic kidney disease with stage 5 chronic kidney disease or end stage renal disease; N18.6 End stage renal disease; D69.6 Thrombocytopenia, unspecified; E87.1 Hypo-osmolality and hyponatremia; N39.0 Urinary tract infection, site not specified; E11.22 Type 2 diabetes mellitus with diabetic chronic kidney disease; J44.9 Chronic obstructive pulmonary disease, unspecified; D63.1 Anemia in chronic kidney disease; J45.20 Mild intermittent asthma, uncomplicated; I25.10 Atherosclerotic heart disease of native coronary artery without angina pectoris; E78.5 Hyperlipidemia, unspecified; G47.30 Sleep apnea, unspecified; M10.9 Gout, unspecified; K21.9 Gastro-esophageal reflux disease without esophagitis; K44.9 Diaphragmatic hernia without obstruction or gangrene; G25.81 Restless legs syndrome; F41.9 Anxiety disorder, unspecified; E66.9 Obesity, unspecified; Z68.36 Body mass index [BMI] 36.0-36.9, adult; E03.9 Hypothyroidism, unspecified; L29.9 Pruritus, unspecified; G43.909 Migraine, unspecified, not intractable, without status migrainosus; I83.90 Asymptomatic varicose veins of unspecified lower extremity; Z99.81 Dependence on supplemental oxygen; M19.91 Primary osteoarthritis, unspecified site; Z87.891 Personal history of nicotine dependence; Z99.2 Dependence on renal dialysis; Z87.440 Personal history of urinary (tract) infections; Z88.0 Allergy status to penicillin; Z88.2 Allergy status to sulfonamides; Z91.013 Allergy to seafood; Z90.49 Acquired absence of other specified parts of digestive tract; Z90.710 Acquired absence of both cervix and uterus; Z98.42 Cataract extraction status, left eye; Z98.41 Cataract extraction status, right eye; Z95.2 Presence of prosthetic heart valve; Z79.02 Long term (current) use of antithrombotics/antiplatelets; Z79.82 Long term (current) use of aspirin; Z79.899 Other long term (current) drug therapy
CPT/HCPCS: 36415; 71020; 80048; 80053; 80306; 81001; 82140; 82550; 82553; 83036; 83690; 83735; 84100; 84484; 85025; 85610; 85730; 87040; 90935; 93005; 94640; 94760

== ENCOUNTER 2017-02-06 22:37 | Emergency (ER) | payer MEDICARE ==
[2017-02-06 22:45] VITALS: TEMP 97.4
[2017-02-06] MEDS ORDERED: ONDANSETRON 4 MG/2 ML VIAL IVP STA (23:29)
[2017-02-06] MEDS ORDERED: MORPHINE SULFATE 4 MG/ML SYRINGE IVP STA (23:29)
[2017-02-06 23:35] LABS: Anisocytosis Slight; Aty Lym Flag Slight; CH 33.1; CHCM 33.2; HCT 41.1 % (34.0-46.0); HDW 2.95; MCH 32.8 pg (25.0-35.0); MCHC 32.7 g/dL (31.0-37.0); MCV 100.3 fL (80.0-100.0); Macrocytosis Moderate; Mean Platelet Volume 6.8; RDW 18.3 % (11.5-15.5); WBC 9.5 k/uL (3.8-10.6); WBC (Perox) 9.98
--- NOTE | 2017-02-06 23:39 | ED ---
General Adult HPI - General Chief complaint: Skin/Abscess/Foreign Body Stated complaint: foot pain Time Seen by Provider: 02/06/17 22:52 Source: patient, family, EMS, RN notes reviewed Mode of arrival: EMS Limitations: no limitations - History of Present Illness Initial comments: 82-year-old female with history of end-stage renal disease presenting for left ankle cellulitis. Patient's daughter states she was seen by her channel process plant operator earlier today for this and he wrote a prescription for Cipro for the infection. They did not fill the prescription throughout the day and the daughter is concerned because the ankle seems to be getting worse. Patient states there is significant pain associated with this as well. Daughter denies fevers or chills. She does state that she has history of neuropathy and chronic pain. She does have dialysis Sunday and has not missed dialysis. She is scheduled to go tomorrow. Patient denies any chest pain or shortness of breath. - Related Data Home Medications Medication Instructions Recorded Confirmed Allopurinol [Zyloprim] 100 mg PO DAILY 06/09/15 02/06/17 Cetirizine HCl/Pseudoephedrine 1 tab PO BID 06/09/15 02/06/17 [Zyrtec-D Tablet] Furosemide [Lasix] 40 mg PO SUTUTHSA 06/09/15 02/06/17 Levothyroxine Sodium [Synthroid] 50 mcg PO DAILY 06/09/15 02/06/17 Midodrine [ProAmatine] 5 mg PO MOWEFR 06/09/15 02/06/17 Multivitamins, Thera [Multivitamin 1 tab PO DAILY 06/09/15 02/06/17 (formulary)] Niacin 500 mg PO DAILY 06/09/15 02/06/17 Sevelamer [Renvela] 1,600 mg PO TID 06/09/15 02/06/17 Simvastatin [Zocor] 20 mg PO HS 06/09/15 02/06/17 Clopidogrel Bisulfate [Plavix] 75 mg PO DAILY 07/21/16 02/06/17 Montelukast [Singulair] 10 mg PO HS 07/21/16 02/06/17 busPIRone HCl [Buspar] 10 mg PO BID 07/21/16 02/06/17 Aspirin EC [Ecotrin Low Dose] 81 mg PO DAILY 08/16/16 02/06/17 Calcium/Magnesium/Zinc 1 tab PO DAILY 08/16/16 02/06/17 [Cvsmyhq-Ommzlhzsa-Snsw Tablet] Ergocalciferol [Vitamin D2 50,000 unit PO TH 08/16/16 02/06/17 (DRISDOL)] ALPRAZolam [Xanax] 0.25 mg PO HS 12/18/16 02/06/17 Albuterol Inhaler [Ventolin Hfa 2 puff INHALATION RT-QID PRN 12/18/16 02/06/17 Inhaler] Cranberry Gummies 1 tab PO BID 12/18/16 02/06/17 [place] 3-6-9 1 tab PO BID 02/06/17 02/06/17 Trimethoprim 100 mg PO HS 02/06/17 02/06/17 diphenhydrAMINE HCL [Benadryl] 50 mg PO TID 02/06/17 02/06/17 rOPINIRole HCL [Requip] 0.25 mg PO BID 02/06/17 02/06/17 Previous Rx's Medication Instructions Recorded Cephalexin [Keflex] 500 mg PO Q8HR #21 cap 02/07/17 HYDROcodone/APAP 5-325MG [[place] 1 tab PO Q6HR PRN #12 tab 02/07/17 5-325] Allergies Allergy/AdvReac Type Severity Reaction Status Date / Time Penicillins Allergy Dyspnea/Yves Verified 02/06/17 23:04 h shellfish derived [Shellfish] Allergy Dyspnea Verified 02/06/17 23:04 Sulfa (Sulfonamide Allergy Unknown Verified 02/06/17 23:04 Antibiotics) Childhood Review of Systems ROS Statement: Those systems with pertinent positive or pertinent negative responses have been documented in the HPI. ROS Other: All systems not noted in ROS Statement are negative. Past Medical History Past Medical History: Asthma, Coronary Artery Disease (CAD), COPD, Diabetes Mellitus, Dialysis, Hyperlipidemia, Hypertension, Osteoarthritis (OA), Renal Disease, Sleep Apnea/CPAP/BIPAP, Thyroid Disorder Additional Past Medical History / Comment(s): Diabetes-no longer on medications , peripheral neuropathy bilateral hands and feet, migraines,GARRETT with no CPAP used, hiatal hernia, diverticulitis, gout bilateral ankles and feet, recent open sore in rectal area-not certain if healed, sore below L buttock, ESRD- hemodialysis- on MOWEFR, anemia r/t renal dx, O2 -3 liters n/c PRN, djd, possible RLS, arthritis bilateral knees/hands-wears bilateral knee braces ( knees will buckle), hypothyroid, UTIs with recent UTI with Ecoli/sepsis and bronchitis. History of Any Multi-Drug Resistant Organisms: None Reported Past Surgical History: Appendectomy, Breast Surgery, Cholecystectomy, Heart Catheterization, Hysterectomy, Orthopedic Surgery Additional Past Surgical History / Comment(s): left shoulder surgery, bilateral breast benign tumors, dialysis cather rt side of chest since removed), fistula left arm, bilateral cataracts, aortic valve replacement, ivis, colonoscopy, bilateral knee injections. Past Anesthesia/Blood Transfusion Reactions: Previous Problems w/ Anesthesia Additional Past Anesthesia/Blood Transfusion Reaction / Comment(s): "slow to come out" Past Psychological History: Anxiety Additional Psychological History / Comment(s): Pt resides at home. 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 She also has a steve, Brionna who is very active in her care. She is currently receiving [facility] home care-a nurse and PT. She normally ambulates with a walker but recently she has been spending most time in a wheelchair. Her steve or cigarette inspector, take her to [facility]. Smoking Status: Former smoker Past Alcohol Use History: None Reported Additional Past Alcohol Use History / Comment(s): patient started smoking at age 18(3) and stopped in [address] drug or alcohol use. No recent travel. No service. Patient lives in her own home and has a caregiver Marcela and her daughter caring for her. Past Drug Use History: None Reported - Past Family History Father Family Medical History: Myocardial Infarction ([place]) Mother Family Medical History: No Reported History Additional Family Medical History / Comment(s): from old age. Daughter(s) Family Medical History: Cancer General Exam - General Exam Comments Initial Comments: General: Awake and Alert. No acute distress. Does not appear acutely ill. Eyes: JOHN, EOM intact. No nystagmus. No scleral icterus. HENT: Atraumatic, normocephalic. Mucous membranes moist. Trachea midline. Hard of hearing. Neck: The neck is supple, there is no tenderness or JVD. Cardiovascular: Regular rate and rhythm. No murmur, rub, or gallop is appreciated. Distal pulses intact. Respiratory: Lungs are clear to auscultation bilaterally. No wheezes, rales, rhonchi. No respiratory distress. Gastrointestinal: Soft, Nontender. No rebound or guarding. Non-distended. No masses or organomegaly noted. No CVA tenderness. Musculoskeletal: No tenderness. Normal ROM. No gross deformity. No strength deficits. Neurological: A&Ox2. Speech is normal. Moves all extremities. Skin: Skin is warm and dry. Warm erythema noted to the medial left ankle and partially up medial left lower leg. This area is tender to palpation. Psychiatric: Cooperative, appropriate mood & affect, normal judgment. Limitations: no limitations Course Vital Signs 02/06/17 02/07/17 22:42 00:44 Temperature 97.4 F L Pulse Rate 76 78 Respiratory 20 16 Rate Blood Pressure 121/58 119/57 O2 Sat by Pulse 93 L Oximetry EKG Findings - EKG Comments: EKG Findings:: EKG 00:17. Sinus rhythm. Rate 82. Normal axis. No STEMI. Nonspecific EKG. Medical Decision Making - Medical Decision Making 8-year-old female with end-stage renal disease presenting for left ankle/lower leg cellulitis. Cellulitis is not circumferential does not appear to be streaking up the leg. She's not been on antibiotic therapy for this area discussed trialing Rocephin in the setting of her penicillin ALLERGY while in the ED. Patient and daughter believes she has taken cephalosporins in the past without reaction. Lab workup was ordered. EKG was performed without significant abnormality. Lab work was stable CBC. BMP stable electrolytes, otherwise consistent with ESRD. Patient tolerated Rocephin without issue. She was also given medication for pain which seemed to improve her pain on reevaluation. Patient is currently only taking Tylenol for pain management at home per daughter. [place] was provided for additional pain management. Discussed following up with PCP to discuss further pain management and neuropathy options. Patient scheduled for dialysis tomorrow, recommend she go to this. Discussed concerning signs symptoms for immediate return to the ED. Rx for antibiotics provided. Daughter and patient are agreeable with plan discharge home. - Lab Data Result diagrams: 02/06/17 23:25 02/06/17 23:25 Lab Results 02/06/17 02/06/17 Range/Units 23:25 23:25 WBC 9.5 (3.8-10.6) k/uL RBC 4.10 (3.80-5.40) m/uL Hgb 13.4 D (11.4-16.0) gm/dL Hct 41.1 (34.0-46.0) % MCV 100.3 H (80.0-100.0) fL MCH 32.8 (25.0-35.0) pg MCHC 32.7 (31.0-37.0) g/dL RDW 18.3 H (11.5-15.5) % Plt Count 179 D (150-450) k/uL Neutrophils % (Manual) 50.0 % Band Neutrophils % 2.0 % Lymphocytes % (Manual) 27.0 % Monocytes % (Manual) 17.0 % Eosinophils % (Manual) 4.0 % Neutrophils # (Manual) 4.9 (1.3-7.7) k/uL Lymphocytes # (Manual) 2.6 (1.0-4.8) k/uL Monocytes # (Manual) 1.6 H (0-1.0) k/uL Eosinophils # (Manual) 0.4 (0-0.7) k/uL Nucleated RBCs 0 (0-0) /100 WBC Manual Slide Review Performed Polychromasia Present Poikilocytosis (manual Present Anisocytosis Slight Macrocytosis Moderate Sodium 132 L (137-145) mmol/L Potassium 5.1 (3.5-5.1) mmol/L Chloride 94 L (98-107) mmol/L Carbon Dioxide 25 (22-30) mmol/L Anion Gap 13 mmol/L BUN 33 H (7-17) mg/dL Creatinine 4.80 H (0.52-1.04) mg/dL Est GFR (MDRD) Af Amer 11 (>60 ml/min/1.73 sqM) Est GFR (MDRD) Non-Af 9 (>60 ml/min/1.73 sqM) Glucose 99 (74-99) mg/dL Calcium 9.5 (8.4-10.2) mg/dL - EKG Data -: EKG Interpreted by Mt EKG shows normal: sinus rhythm Rate: normal Disposition Clinical Impression: Cellulitis of left ankle, ESRD (end stage renal disease), Neuropathy Disposition: HOME SELF-CARE Condition: Stable Instructions: Cellulitis (ED), Diabetic Peripheral Neuropathy (ED), End Stage Kidney Disease (ED) Additional Instructions: Please talk to her primary doctor about additional nerve pain medications like Neurontin, Lyrica, or Cymbalta. Please make sure she goes to Dialysis tomorrow. Prescriptions: Cephalexin [Keflex] 500 mg PO Q8HR #21 cap HYDROcodone/APAP 5-325MG [[place] 5-325] 1 tab PO Q6HR PRN #12 tab PRN Reason: Pain Referrals: Tone Adams MD [Primary Care Provider] - 1-2 days Time of Disposition: 00:52
[2017-02-06 23:44] LABS: Calcium 9.5 mg/dL (8.4-10.2)
[2017-02-06 23:56] LABS: HGB 13.4 gm/dL (11.4-16.0)
[2017-02-07 00:01] LABS: Potassium 5.1 mmol/L (3.5-5.1)
[2017-02-07 00:23] LABS: Add Differential Manual Differential
[2017-02-07 00:27] LABS: Nucleated Red Blood Cells 0 /100 WBC (0-0); Total Cells Counted 100
[2017-02-07 00:28] LABS: Polychromasia Present
[2017-02-07 00:29] LABS: Manual Review Performed
[2017-02-07] MEDS ORDERED: HYDROcodone/APAP 5-325MG 1 EACH TAB PO STA (00:52)
[2017-02-07 01:09] VITALS: BP 119/57; PULSE 78; RESP 16
== END 2017-02-07 01:46 | disposition home or self-care (01) ==
LOC: EC 22:37
DX: L03.116 Cellulitis of left lower limb (principal); I12.0 Hypertensive chronic kidney disease with stage 5 chronic kidney disease or end stage renal disease; N18.6 End stage renal disease; G62.9 Polyneuropathy, unspecified; F41.9 Anxiety disorder, unspecified; E78.5 Hyperlipidemia, unspecified; I25.10 Atherosclerotic heart disease of native coronary artery without angina pectoris; E03.9 Hypothyroidism, unspecified; M19.90 Unspecified osteoarthritis, unspecified site; Z99.2 Dependence on renal dialysis; Z87.891 Personal history of nicotine dependence; Z79.01 Long term (current) use of anticoagulants; Z79.82 Long term (current) use of aspirin; Z79.899 Other long term (current) drug therapy; Z88.0 Allergy status to penicillin; Z88.2 Allergy status to sulfonamides
CPT/HCPCS: 36415; 93005; 80048; 85025; 99283; 96365; 96375 ×2; J2270; J2405; J0696

== ENCOUNTER 2017-03-22 19:19 | Emergency (ER) | payer MEDICARE ==
[2017-03-22 20:00] VITALS: TEMP 97.4
--- NOTE | 2017-03-22 20:21 | ED ---
General Adult HPI - General Source: patient, RN notes reviewed Mode of arrival: wheelchair Limitations: no limitations <Jose David Agustin - Last Filed: 03/22/17 21:04> <Pelon Dasilva - Last Filed: 03/22/17 21:46> - General Chief complaint: Weakness Stated complaint: Dr Sent/UTI Test Time Seen by Provider: 03/22/17 19:30 - History of Present Illness Initial comments: This is a 82-year-old female presents emergency Department complaining of decreased appetite with some nausea. Caregiver states the patient has been much more fatigued and she's had a history of chronic UTIs and because of the weakness she has brought the patient to the emergency department. Patient denies weakness but the caregiver confirms that she is much weaker than normal. Caregiver also confirms the patient has not eaten much over the last week. Patient has had no vomiting or diarrhea patient has had no chest pain palpitations difficulty breathing or shortness of breath. There's been no recent history of any fever chills. Patient does not feel lightheaded dizzy or having any near syncopal episodes. Patient is a dialysis patient was dialyzed yesterday. (Jose Dvaid Agustin) - Related Data Home Medications Medication Instructions Recorded Confirmed Allopurinol [Zyloprim] 100 mg PO DAILY 06/09/15 03/22/17 Cetirizine HCl/Pseudoephedrine 1 tab PO DAILY 06/09/15 03/22/17 [Zyrtec-D Tablet] Furosemide [Lasix] 40 mg PO SUTUTHSA 06/09/15 03/22/17 Levothyroxine Sodium [Synthroid] 50 mcg PO DAILY 06/09/15 03/22/17 Midodrine [ProAmatine] 5 mg PO MOWEFR 06/09/15 03/22/17 Multivitamins, Thera [Multivitamin 1 tab PO DAILY 06/09/15 03/22/17 (formulary)] Niacin 500 mg PO DAILY 06/09/15 03/22/17 Sevelamer [Renvela] 1,600 mg PO TID 06/09/15 03/22/17 Simvastatin [Zocor] 20 mg PO HS 06/09/15 03/22/17 Clopidogrel Bisulfate [Plavix] 75 mg PO DAILY 07/21/16 03/22/17 Montelukast [Singulair] 10 mg PO HS 07/21/16 03/22/17 busPIRone HCl [Buspar] 15 mg PO BID 07/21/16 03/22/17 Aspirin EC [Ecotrin Low Dose] 81 mg PO DAILY 08/16/16 03/22/17 Calcium/Magnesium/Zinc 1 tab PO DAILY 08/16/16 03/22/17 [Pgscsvh-Zmhoxjywn-Exet Tablet] Ergocalciferol [Vitamin D2 50,000 unit PO TH 08/16/16 03/22/17 (DRISDOL)] ALPRAZolam [Xanax] 0.25 mg PO HS 12/18/16 03/22/17 Albuterol Inhaler [Ventolin Hfa 2 puff INHALATION RT-TID PRN 12/18/16 03/22/17 Inhaler] Cranberry Gummies 1 tab PO BID 12/18/16 03/22/17 [place] 3-6-9 1 tab PO BID 02/06/17 03/22/17 Trimethoprim 100 mg PO HS 02/06/17 03/22/17 diphenhydrAMINE HCL [Benadryl] 50 mg PO TID 02/06/17 03/22/17 Albuterol Nebulized [Ventolin 2.5 mg INHALATION RT-QID PRN 03/22/17 03/22/17 Nebulized] Anti-Aging Tab 1 tab PO DAILY 03/22/17 03/22/17 rOPINIRole HCL [Requip] 1 mg PO BID 03/22/17 03/22/17 Previous Rx's Medication Instructions Recorded Ciprofloxacin HCl [Cipro] 500 mg PO Q12HR #18 tablet 03/22/17 Allergies Allergy/AdvReac Type Severity Reaction Status Date / Time Penicillins Allergy Dyspnea/Yves Verified 03/22/17 20:18 h shellfish derived [Shellfish] Allergy Dyspnea Verified 03/22/17 20:18 Sulfa (Sulfonamide Allergy Unknown Verified 03/22/17 20:18 Antibiotics) Childhood Review of Systems ROS Other: All systems not noted in ROS Statement are negative. <Jose David Agustin - Last Filed: 03/22/17 21:04> ROS Other: All systems not noted in ROS Statement are negative. <Pelon Dasilva - Last Filed: 03/22/17 21:46> ROS Statement: Those systems with pertinent positive or pertinent negative responses have been documented in the HPI. Past Medical History Past Medical History: Asthma, Coronary Artery Disease (CAD), COPD, Diabetes Mellitus, Dialysis, Hyperlipidemia, Hypertension, Osteoarthritis (OA), Renal Disease, Sleep Apnea/CPAP/BIPAP, Thyroid Disorder Additional Past Medical History / Comment(s): Diabetes-no longer on medications , peripheral neuropathy bilateral hands and feet, migraines,GARRETT with no CPAP used, hiatal hernia, diverticulitis, gout bilateral ankles and feet, recent open sore in rectal area-not certain if healed, sore below L buttock, ESRD- hemodialysis- on MOWEFR, anemia r/t renal dx, O2 -3 liters n/c PRN, djd, possible RLS, arthritis bilateral knees/hands-wears bilateral knee braces ( knees will buckle), hypothyroid, UTIs with recent UTI with Ecoli/sepsis and bronchitis. History of Any Multi-Drug Resistant Organisms: None Reported Past Surgical History: Appendectomy, Breast Surgery, Cholecystectomy, Heart Catheterization, Hysterectomy, Orthopedic Surgery Additional Past Surgical History / Comment(s): left shoulder surgery, bilateral breast benign tumors, dialysis cather rt side of chest since removed), fistula left arm, bilateral cataracts, aortic valve replacement, ivis, colonoscopy, bilateral knee injections. Past Anesthesia/Blood Transfusion Reactions: Previous Problems w/ Anesthesia Additional Past Anesthesia/Blood Transfusion Reaction / Comment(s): "slow to come out" Past Psychological History: Anxiety Smoking Status: Former smoker Past Alcohol Use History: None Reported Past Drug Use History: None Reported - Past Family History Father Family Medical History: Myocardial Infarction ([place]) Mother Family Medical History: No Reported History Additional Family Medical History / Comment(s): from old age. Daughter(s) Family Medical History: Cancer <Jose David Agustin - Last Filed: 03/22/17 21:04> General Exam Limitations: no limitations <Jose David Agustin - Last Filed: 03/22/17 21:04> <Pelon Dasilva - Last Filed: 03/22/17 21:46> - General Exam Comments Initial Comments: GENERAL: Patient is well-developed and well-nourished. Patient is nontoxic and well- hydrated and is in no acute distress. ENT: Neck is soft and supple. No significant lymphadenopathy is noted. Oropharynx is clear. Moist mucous membranes. Neck has full range of motion without eliciting any pain. EYES: The sclera were anicteric and conjunctiva were pink and moist. Extraocular movements were intact and pupils were equal round and reactive to light. Eyelids were unremarkable. PULMONARY: Unlabored respirations. Good breath sounds bilaterally. No audible rales rhonchi or wheezing was noted. CARDIOVASCULAR: There is a regular rate and rhythm without any murmurs gallops or rubs. ABDOMEN: Soft and nontender with normal bowel sounds. No palpable organomegaly was noted. There is no palpable pulsatile mass. SKIN: Skin is clear with no lesions or rashes and otherwise unremarkable. NEUROLOGIC: Patient is alert and oriented x3. Cranial nerves II through XII are grossly intact. Motor and sensory are also intact. Normal speech, volume and content. Symmetrical smile. MUSCULOSKELETAL: Normal extremities with adequate strength and full range of motion. No lower extremity swelling or edema. No calf tenderness. LYMPHATICS: No significant lymphadenopathy is noted PSYCHIATRIC: Normal psychiatric evaluation. (Jose David Agustin) EKG Findings - EKG Comments: EKG Findings:: Normal sinus rhythm 73. ND 188. QRS 80. QT 4:30. QTC 473. Normal axis. Normal QRS. Normal ST-T. <Pelon Dasilva - Last Filed: 03/22/17 21:46> Medical Decision Making - Lab Data Result diagrams: 03/22/17 20:16 03/22/17 20:16 <Jose David Agustin - Last Filed: 03/22/17 21:04> - Lab Data Result diagrams: 03/22/17 20:16 03/22/17 20:16 - Radiology Data Radiology results: image reviewed (Chest x-ray shows no acute process) <Pelon Dasilva - Last Filed: 03/22/17 21:46> - Medical Decision Making EKG shows normal sinus rhythm at a 96 bpm ND interval 144 Marcos is 80 QT interval 350 QTC is 442. Patient's EKG shows no ST segment elevation or depression or T wave normalities are noted. Dr. Dasilva will be taking care of this patient at 9 PM (Jose David Agustin) Patient reevaluated and resting operably in bed. Clerical Adjuster and patient are both comfortable with discharge home. Patient generally responds well to Cipro or Levaquin per wraparound facilitator. (Pelon Dasilva) - Lab Data Lab Results 03/22/17 03/22/17 03/22/17 Range/Units 20:16 20:16 20:16 WBC 10.2 (3.8-10.6) k/uL RBC 3.38 L (3.80-5.40) m/uL Hgb 11.5 (11.4-16.0) gm/dL Hct 34.8 (34.0-46.0) % MCV 103.1 H (80.0-100.0) fL MCH 34.1 (25.0-35.0) pg MCHC 33.1 (31.0-37.0) g/dL RDW 19.2 H (11.5-15.5) % Plt Count 200 (150-450) k/uL Neutrophils % 68 % Lymphocytes % 20 % Monocytes % 6 % Eosinophils % 3 % Basophils % 0 % Neutrophils # 7.0 (1.3-7.7) k/uL Lymphocytes # 2.0 (1.0-4.8) k/uL Monocytes # 0.6 (0-1.0) k/uL Eosinophils # 0.3 (0-0.7) k/uL Basophils # 0.0 (0-0.2) k/uL Anisocytosis Slight Macrocytosis Moderate PT (9.0-12.0) sec INR (<1.2) APTT (22.0-30.0) sec Sodium 131 L (137-145) mmol/L Potassium 4.4 (3.5-5.1) mmol/L Chloride 92 L (98-107) mmol/L Carbon Dioxide 31 H (22-30) mmol/L Anion Gap 8 mmol/L BUN 32 H (7-17) mg/dL Creatinine 3.46 H (0.52-1.04) mg/dL Est GFR (MDRD) Af Amer 15 (>60 ml/min/1.73 sqM) Est GFR (MDRD) Non-Af 13 (>60 ml/min/1.73 sqM) Glucose 85 (74-99) mg/dL Calcium 9.7 (8.4-10.2) mg/dL Magnesium 2.3 (1.6-2.3) mg/dL Total Bilirubin 0.7 (0.2-1.3) mg/dL AST 52 H (14-36) U/L ALT 37 (9-52) U/L Alkaline Phosphatase 149 H (38-126) U/L Total Creatine Kinase 81 (30-135) U/L CK-MB (CK-2) 1.5 (0.0-2.4) ng/mL CK-MB (CK-2) Rel Index 1.9 Troponin I <0.012 (0.000-0.034) ng/mL Total Protein 6.0 L (6.3-8.2) g/dL Albumin 3.6 (3.5-5.0) g/dL Urine Color Urine Appearance (Clear) Urine pH (5.0-8.0) Ur Specific [place] (1.001-1.035) Urine Protein (Negative) Urine Glucose (UA) (Negative) Urine Ketones (Negative) Urine Blood (Negative) Urine Nitrite (Negative) Urine Bilirubin (Negative) Urine Urobilinogen (<2.0) mg/dL Ur Leukocyte Esterase (Negative) Urine WBC (0-5) /hpf Urine WBC Clumps (None) /hpf Amorphous Sediment (None) /hpf Urine Bacteria (None) /hpf 03/22/17 03/22/17 Range/Units 20:16 20:16 WBC (3.8-10.6) k/uL RBC (3.80-5.40) m/uL Hgb (11.4-16.0) gm/dL Hct (34.0-46.0) % MCV (80.0-100.0) fL MCH (25.0-35.0) pg MCHC (31.0-37.0) g/dL RDW (11.5-15.5) % Plt Count (150-450) k/uL Neutrophils % % Lymphocytes % % Monocytes % % Eosinophils % % Basophils % % Neutrophils # (1.3-7.7) k/uL Lymphocytes # (1.0-4.8) k/uL Monocytes # (0-1.0) k/uL Eosinophils # (0-0.7) k/uL Basophils # (0-0.2) k/uL Anisocytosis Macrocytosis PT 10.5 (9.0-12.0) sec INR 1.0 (<1.2) APTT 23.5 (22.0-30.0) sec Sodium (137-145) mmol/L Potassium (3.5-5.1) mmol/L Chloride (98-107) mmol/L Carbon Dioxide (22-30) mmol/L Anion Gap mmol/L BUN (7-17) mg/dL Creatinine (0.52-1.04) mg/dL Est GFR (MDRD) Af Amer (>60 ml/min/1.73 sqM) Est GFR (MDRD) Non-Af (>60 ml/min/1.73 sqM) Glucose (74-99) mg/dL Calcium (8.4-10.2) mg/dL Magnesium (1.6-2.3) mg/dL Total Bilirubin (0.2-1.3) mg/dL AST (14-36) U/L ALT (9-52) U/L Alkaline Phosphatase (38-126) U/L Total Creatine Kinase (30-135) U/L CK-MB (CK-2) (0.0-2.4) ng/mL CK-MB (CK-2) Rel Index Troponin I (0.000-0.034) ng/mL Total Protein (6.3-8.2) g/dL Albumin (3.5-5.0) g/dL Urine Color Light Red Urine Appearance Turbid H (Clear) Urine pH 7.0 (5.0-8.0) Ur Specific [place] 1.014 (1.001-1.035) Urine Protein 3+ H (Negative) Urine Glucose (UA) Negative (Negative) Urine Ketones Negative (Negative) Urine Blood Moderate H (Negative) Urine Nitrite Negative (Negative) Urine Bilirubin Negative (Negative) Urine Urobilinogen 2.0 (<2.0) mg/dL Ur Leukocyte Esterase Large H (Negative) Urine WBC >182 H (0-5) /hpf Urine WBC Clumps Many H (None) /hpf Amorphous Sediment Occasional H (None) /hpf Urine Bacteria Many H (None) /hpf Disposition <Jose David Agustin - Last Filed: 03/22/17 21:04> Time of Disposition: 21:46 <Pelon Dasilva - Last Filed: 03/22/17 21:46> Clinical Impression: Urinary tract infection Disposition: HOME SELF-CARE Condition: Stable Instructions: Urinary Tract Infection in Women (ED) Additional Instructions: Please follow-up with primary care physician in the next day or 2 for recheck. Have primary care physician review urine culture results. Return for increased weakness, not eating or drinking, fevers, worsening symptoms or other concerns. Prescriptions: Ciprofloxacin HCl [Cipro] 500 mg PO Q12HR #18 tablet Referrals: Tone Adams MD [Primary Care Provider] - 1-2 days
[2017-03-22 20:47] LABS: Anisocytosis Slight; Basophils % (A) 0 %; CH 34.1; CHCM 33.2; Eosinophils # (A) 0.3 k/uL (0-0.7); Eosinophils % (A) 3 %; HCT 34.8 % (34.0-46.0); HDW 2.92; HGB 11.5 gm/dL (11.4-16.0); Luc # (Auto) 0.26; Luc % (Auto) 3; Lymphocytes % (A) 20 %; MCH 34.1 pg (25.0-35.0); MCHC 33.1 g/dL (31.0-37.0); MCV 103.1 fL (80.0-100.0); Macrocytosis Moderate; Mean Platelet Volume 7.2; Monocytes # (A) 0.6 k/uL (0-1.0); Monocytes % (A) 6 %; Neutrophils % (A) 68 %; RBC 3.38 m/uL (3.80-5.40); RDW 19.2 % (11.5-15.5); WBC 10.2 k/uL (3.8-10.6); WBC (Perox) 10.45
[2017-03-22 20:56] LABS: Calcium 9.7 mg/dL (8.4-10.2); Magnesium 2.3 mg/dL (1.6-2.3); Potassium 4.4 mmol/L (3.5-5.1); Total Bilirubin 0.7 mg/dL (0.2-1.3)
[2017-03-22 20:57] LABS: Amorphous Sediment,Urine Occasional /hpf; Appearance,Urine Turbid (Clear); Bacteria,Urine Many /hpf; Bilirubin,Urine Negative (Negative); Glucose,Urine (UA) Negative (Negative); Ketones,Urine Negative (Negative); Leukocyte Esterase,Urine Large (Negative); Nitrite,Urine Negative (Negative); Particle Count 653657; Protein,Urine 3+ (Negative); Specific Gravity,Urine 1.014 (1.001-1.035); UA Billing (MACRO vs. MICRO) MICRO; WBC,Urine >182 /hpf (0-5)
[2017-03-22 21:00] LABS: Partial Thromboplastin Time 23.5 sec (22.0-30.0); Prothrombin Time 10.5 sec (9.0-12.0)
[2017-03-22 21:06] LABS: Creatine Kinase 81 U/L (30-135)
--- NOTE | 2017-03-22 21:17 | XR ---
EXAMINATION TYPE: XR chest 2V DATE OF EXAM: 03/22/2017 COMPARISON: Prior chest x-ray 12/18/2016 HISTORY: Weakness, coronary artery disease, asthma TECHNIQUE: Frontal and lateral views of the chest are obtained. FINDINGS: No interval change is evident. Postprocedural changes to the aortic root, postop changes t o the left shoulder as on prior exam. Heart is likely enlarged. IMPRESSION: No acute cardiopulmonary process.
[2017-03-22 21:19] LABS: Creatine Kinase MB 1.5 ng/mL (0.0-2.4); Troponin I <0.012 ng/mL (0.000-0.034)
[2017-03-22] MEDS ORDERED: LEVOFLOXACIN 750 MG TAB PO STA (21:45)
[2017-03-22 22:18] VITALS: BP 114/56; PULSE 77; RESP 20
== END 2017-03-22 22:46 | disposition home or self-care (01) ==
LOC: EC 19:19
DX: N39.0 Urinary tract infection, site not specified (principal); R53.1 Weakness; J44.9 Chronic obstructive pulmonary disease, unspecified; I10 Essential (primary) hypertension; M19.90 Unspecified osteoarthritis, unspecified site; M10.9 Gout, unspecified; E03.9 Hypothyroidism, unspecified; F41.9 Anxiety disorder, unspecified; E78.5 Hyperlipidemia, unspecified; Z88.0 Allergy status to penicillin; Z88.2 Allergy status to sulfonamides; Z91.013 Allergy to seafood; Z87.891 Personal history of nicotine dependence; Z79.82 Long term (current) use of aspirin; Z79.02 Long term (current) use of antithrombotics/antiplatelets; Z79.899 Other long term (current) drug therapy
CPT/HCPCS: 36415; 71020; 80053; 81001; 82550; 82553; 83735; 84484; 85025; 85610; 85730; 93005; 99285

== ENCOUNTER 2017-03-26 04:34 | Inpatient (IN) | payer MEDICARE ==
[2017-03-26 05:47] LABS: Anisocytosis Slight; Basophils % (A) 0 %; Eosinophils # (A) 0.1 k/uL (0-0.7); Eosinophils % (A) 1 %; HCT 35.1 % (34.0-46.0); HDW 2.86; HGB 11.5 gm/dL (11.4-16.0); Luc # (Auto) 0.18; Luc % (Auto) 2; Lymphocytes # (A) 1.3 k/uL (1.0-4.8); Lymphocytes % (A) 12 %; MCH 33.9 pg (25.0-35.0); MCHC 32.8 g/dL (31.0-37.0); MCV 103.4 fL (80.0-100.0); Macrocytosis Moderate; Mean Platelet Volume 6.5; Monocytes # (A) 0.4 k/uL (0-1.0); Monocytes % (A) 4 %; Neutrophils # (A) 8.9 k/uL (1.3-7.7); Neutrophils % (A) 81 %; RBC 3.39 m/uL (3.80-5.40); RDW 19.5 % (11.5-15.5); WBC (Perox) 11.21
[2017-03-26 06:03] LABS: Prothrombin Time 10.5 sec (9.0-12.0)
[2017-03-26 06:08] LABS: Calcium 10.3 mg/dL (8.4-10.2); Magnesium 2.5 mg/dL (1.6-2.3); Potassium 4.4 mmol/L (3.5-5.1); Total Bilirubin 0.5 mg/dL (0.2-1.3); Total Protein 5.9 g/dL (6.3-8.2)
[2017-03-26 06:09] LABS: Partial Thromboplastin Time 21.9 sec (22.0-30.0)
[2017-03-26 06:17] LABS: Creatine Kinase 47 U/L (30-135)
--- NOTE | 2017-03-26 06:19 | XR ---
EXAM: XR Left Shoulder Complete, 2 or More Views CLINICAL HISTORY: Reason: Pain TECHNIQUE: Two or more views of the left shoulder. COMPARISON: Chest radiograph From 03/22/17. FINDINGS: Bones/joints: Osteopenia. Moderate hypertrophic arthropathy of the acromioclavicular joint. No fracture or dislocation. Cancellous screw fusing the distal clavicle and glenoid. Soft tissues: Unremarkable. Vasculature: Master stent in the region of left axilla/proximal arm. IMPRESSION: No acute findings.
[2017-03-26 06:30] LABS: Creatine Kinase MB 0.6 ng/mL (0.0-2.4); Troponin I <0.012 ng/mL (0.000-0.034)
--- NOTE | 2017-03-26 06:30 | XR ---
EXAM: XR Chest, 1 View CLINICAL HISTORY: Reason: weakness TECHNIQUE: Frontal view of the chest. COMPARISON: 03/22/17 FINDINGS: Lungs: Aorta is calcified. Small amount of left basilar atelectasis. Pleural space: Unremarkable. No pneumothorax. Heart: Aortic valvular stent. Mediastinum: Unremarkable. Bones/joints: Osteopenia. Moderate degenerative changes. Vasculature: Vascular stent in the left axillary region is again noted. IMPRESSION: No acute findings or substantial change.
--- NOTE | 2017-03-26 07:32 | ED ---
General Adult HPI - General Chief complaint: Urogenital Stated complaint: UTI/Weakness Time Seen by Provider: 03/26/17 04:53 Source: patient, family Mode of arrival: wheelchair Limitations: no limitations - History of Present Illness Initial comments: This patient is a 2-year-old woman with history of end-stage renal disease, who is currently being treated for urinary tract infection. She is brought in by her daughter to be evaluated for increasing weakness over approximately the past day and a half. The patient has not been able to get up from her chair. The patient was seen here on the found to have urinary tract infection and has been taking levofloxacin. The patient is not able to state that she has any urinary symptoms as she is for the most part oliguric and rarely urinates. Patient does state that she has been feeling subjectively hot and cold. She does state that her temperature normally runs around 96.5 and in the triage area was 99 today. Onset/Timin -: days(s) Improves with: none Worsens with: none Associated Symptoms: fever/chills - Related Data Home Medications Medication Instructions Recorded Confirmed Allopurinol [Zyloprim] 100 mg PO DAILY 06/09/15 03/26/17 Cetirizine HCl/Pseudoephedrine 1 tab PO DAILY 06/09/15 03/26/17 [Zyrtec-D Tablet] Furosemide [Lasix] 40 mg PO SUTUTHSA 06/09/15 03/26/17 Levothyroxine Sodium [Synthroid] 50 mcg PO DAILY 06/09/15 03/26/17 Midodrine [ProAmatine] 5 mg PO MOWEFR 06/09/15 03/26/17 Multivitamins, Thera [Multivitamin 1 tab PO DAILY 06/09/15 03/26/17 (formulary)] Niacin 500 mg PO DAILY 06/09/15 03/26/17 Sevelamer [Renvela] 1,600 mg PO TID 06/09/15 03/26/17 Simvastatin [Zocor] 20 mg PO HS 06/09/15 03/26/17 Clopidogrel Bisulfate [Plavix] 75 mg PO DAILY 07/21/16 03/26/17 Montelukast [Singulair] 10 mg PO HS 07/21/16 03/26/17 busPIRone HCl [Buspar] 15 mg PO BID 07/21/16 03/26/17 Aspirin EC [Ecotrin Low Dose] 81 mg PO DAILY 08/16/16 03/26/17 Calcium/Magnesium/Zinc 1 tab PO DAILY 08/16/16 03/26/17 [Tiriegd-Mwsgmrpjb-Iahl Tablet] Ergocalciferol [Vitamin D2 50,000 unit PO TH 08/16/16 03/26/17 (DRISDOL)] ALPRAZolam [Xanax] 0.25 mg PO HS 12/18/16 03/26/17 Albuterol Inhaler [Ventolin Hfa 2 puff INHALATION RT-TID PRN 12/18/16 03/26/17 Inhaler] Cranberry Gummies 1 tab PO BID 12/18/16 03/26/17 [place] 3-6-9 1 tab PO BID 02/06/17 03/26/17 Trimethoprim 100 mg PO HS 02/06/17 03/26/17 diphenhydrAMINE HCL [Benadryl] 50 mg PO TID 02/06/17 03/26/17 Albuterol Nebulized [Ventolin 2.5 mg INHALATION RT-QID PRN 03/22/17 03/26/17 Nebulized] Anti-Aging Tab 1 tab PO DAILY 03/22/17 03/26/17 rOPINIRole HCL [Requip] 1 mg PO BID 03/22/17 03/26/17 Previous Rx's Medication Instructions Recorded Ciprofloxacin HCl [Cipro] 500 mg PO Q12HR #18 tablet 03/22/17 Allergies Allergy/AdvReac Type Severity Reaction Status Date / Time Penicillins Allergy Dyspnea/Yves Verified 03/26/17 04:48 h shellfish derived [Shellfish] Allergy Dyspnea Verified 03/26/17 04:48 Sulfa (Sulfonamide Allergy Unknown Verified 03/26/17 04:48 Antibiotics) Childhood Review of Systems ROS Statement: Those systems with pertinent positive or pertinent negative responses have been documented in the HPI. ROS Other: All systems not noted in ROS Statement are negative. Constitutional: Reports: fever, chills, weakness Respiratory: Denies: cough, dyspnea, wheezes Cardiovascular: Denies: chest pain, palpitations Gastrointestinal: Denies: abdominal pain, vomiting, diarrhea Genitourinary: Denies: dysuria Skin: Denies: rash, lesions Neurological: Denies: headache, weakness, numbness Past Medical History Past Medical History: Asthma, Coronary Artery Disease (CAD), COPD, Diabetes Mellitus, Dialysis, Hyperlipidemia, Hypertension, Osteoarthritis (OA), Renal Disease, Sleep Apnea/CPAP/BIPAP, Thyroid Disorder Additional Past Medical History / Comment(s): Diabetes-no longer on medications , peripheral neuropathy bilateral hands and feet, migraines,GARRETT with no CPAP used, hiatal hernia, diverticulitis, gout bilateral ankles and feet, ESRD- hemodialysis- on MOWEFR, anemia r/t renal dx, O2 -3 liters n/c PRN, djd, possible RLS, arthritis bilateral knees/hands-wears bilateral knee braces ( knees will buckle), hypothyroid, UTIs with recent UTI with Ecoli/sepsis and bronchitis. History of Any Multi-Drug Resistant Organisms: None Reported Past Surgical History: Appendectomy, Breast Surgery, Cholecystectomy, Heart Catheterization, Hysterectomy, Orthopedic Surgery Additional Past Surgical History / Comment(s): left shoulder surgery, bilateral breast benign tumors, dialysis cather rt side of chest since removed), fistula left arm, bilateral cataracts, aortic valve replacement, ivis, colonoscopy, bilateral knee injections. Past Anesthesia/Blood Transfusion Reactions: Previous Problems w/ Anesthesia Additional Past Anesthesia/Blood Transfusion Reaction / Comment(s): "slow to come out" Past Psychological History: Anxiety Smoking Status: Former smoker Past Alcohol Use History: None Reported Past Drug Use History: None Reported - Past Family History Father Family Medical History: Myocardial Infarction (NH) Mother Family Medical History: No Reported History Additional Family Medical History / Comment(s): from old age. Daughter(s) Family Medical History: Cancer General Exam Limitations: no limitations General appearance: alert, in no apparent distress, obese Head exam: Present: atraumatic, normocephalic Eye exam: Present: normal appearance. Absent: scleral icterus, conjunctival injection Neck exam: Present: normal inspection Respiratory exam: Present: rales (Crackles at the bilateral bases which clear with cough). Absent: normal lung sounds bilaterally, respiratory distress, wheezes, rhonchi, stridor Cardiovascular Exam: Present: regular rate, normal rhythm, systolic murmur (. Just 6 systolic ejection). Absent: diastolic murmur, rubs, gallop GI/Abdominal exam: Present: soft. Absent: distended, tenderness, guarding, rebound, rigid, mass, pulsatile mass, hernia Extremities exam: Present: normal inspection, normal capillary refill. Absent: pedal edema, calf tenderness Back exam: Present: other (Ecchymosis over the low back no vertebral tenderness) . Absent: tenderness, CVA tenderness (R), CVA tenderness (L), vertebral tenderness Neurological exam: Present: alert. Absent: oriented X3, motor sensory deficit Skin exam: Present: warm, dry, intact, other (Ecchymosis or low back). Absent: rash Course Vital Signs 03/26/17 03/26/17 03/26/17 04:40 05:35 06:28 Temperature 99.0 F Pulse Rate 75 73 74 Respiratory 18 18 18 Rate Blood Pressure 137/64 135/60 125/78 O2 Sat by Pulse 96 95 98 Oximetry 03/26/17 03/26/17 06:47 07:04 Temperature 97.9 F Pulse Rate 74 Respiratory 18 Rate Blood Pressure 129/88 O2 Sat by Pulse 97 Oximetry Medical Decision Making - Lab Data Result diagrams: 03/26/17 05:10 03/26/17 05:10 Lab Results 03/26/17 03/26/17 03/26/17 Range/Units 05:10 05:10 05:10 WBC 11.0 H (3.8-10.6) k/uL RBC 3.39 L (3.80-5.40) m/uL Hgb 11.5 (11.4-16.0) gm/dL Hct 35.1 (34.0-46.0) % MCV 103.4 H (80.0-100.0) fL MCH 33.9 (25.0-35.0) pg MCHC 32.8 (31.0-37.0) g/dL RDW 19.5 H (11.5-15.5) % Plt Count 242 (150-450) k/uL Neutrophils % 81 % Lymphocytes % 12 % Monocytes % 4 % Eosinophils % 1 % Basophils % 0 % Neutrophils # 8.9 H (1.3-7.7) k/uL Lymphocytes # 1.3 (1.0-4.8) k/uL Monocytes # 0.4 (0-1.0) k/uL Eosinophils # 0.1 (0-0.7) k/uL Basophils # 0.0 (0-0.2) k/uL Anisocytosis Slight Macrocytosis Moderate PT (9.0-12.0) sec INR (<1.2) APTT (22.0-30.0) sec Sodium 135 L (137-145) mmol/L Potassium 4.4 (3.5-5.1) mmol/L Chloride 92 L (98-107) mmol/L Carbon Dioxide 31 H (22-30) mmol/L Anion Gap 12 mmol/L BUN 44 H (7-17) mg/dL Creatinine 5.20 H* (0.52-1.04) mg/dL Est GFR (MDRD) Af Amer 10 (>60 ml/min/1.73 sqM) Est GFR (MDRD) Non-Af 8 (>60 ml/min/1.73 sqM) Glucose 76 (74-99) mg/dL Plasma Lactic Acid Trevon (0.7-2.0) mmol/L Calcium 10.3 H (8.4-10.2) mg/dL Magnesium 2.5 H (1.6-2.3) mg/dL Total Bilirubin 0.5 (0.2-1.3) mg/dL AST 31 (14-36) U/L ALT 40 (9-52) U/L Alkaline Phosphatase 153 H (38-126) U/L Total Creatine Kinase 47 (30-135) U/L CK-MB (CK-2) 0.6 (0.0-2.4) ng/mL CK-MB (CK-2) Rel Index 1.3 Troponin I <0.012 (0.000-0.034) ng/mL Total Protein 5.9 L (6.3-8.2) g/dL Albumin 3.7 (3.5-5.0) g/dL 03/26/17 03/26/17 Range/Units 05:10 05:10 WBC (3.8-10.6) k/uL RBC (3.80-5.40) m/uL Hgb (11.4-16.0) gm/dL Hct (34.0-46.0) % MCV (80.0-100.0) fL MCH (25.0-35.0) pg MCHC (31.0-37.0) g/dL RDW (11.5-15.5) % Plt Count (150-450) k/uL Neutrophils % % Lymphocytes % % Monocytes % % Eosinophils % % Basophils % % Neutrophils # (1.3-7.7) k/uL Lymphocytes # (1.0-4.8) k/uL Monocytes # (0-1.0) k/uL Eosinophils # (0-0.7) k/uL Basophils # (0-0.2) k/uL Anisocytosis Macrocytosis PT 10.5 (9.0-12.0) sec INR 1.0 (<1.2) APTT 21.9 L (22.0-30.0) sec Sodium (137-145) mmol/L Potassium (3.5-5.1) mmol/L Chloride (98-107) mmol/L Carbon Dioxide (22-30) mmol/L Anion Gap mmol/L BUN (7-17) mg/dL Creatinine (0.52-1.04) mg/dL Est GFR (MDRD) Af Amer (>60 ml/min/1.73 sqM) Est GFR (MDRD) Non-Af (>60 ml/min/1.73 sqM) Glucose (74-99) mg/dL Plasma Lactic Acid Trevon 1.2 (0.7-2.0) mmol/L Calcium (8.4-10.2) mg/dL Magnesium (1.6-2.3) mg/dL Total Bilirubin (0.2-1.3) mg/dL AST (14-36) U/L ALT (9-52) U/L Alkaline Phosphatase (38-126) U/L Total Creatine Kinase (30-135) U/L CK-MB (CK-2) (0.0-2.4) ng/mL CK-MB (CK-2) Rel Index Troponin I (0.000-0.034) ng/mL Total Protein (6.3-8.2) g/dL Albumin (3.5-5.0) g/dL - EKG Data -: EKG Interpreted by Nv EKG shows normal: sinus rhythm, axis (Normal), intervals (Normal), QRS complexes (Normal), ST-T waves (Normal) Rate: normal (Rate 77 bpm) Interpretation: normal EKG Disposition Referrals: Tone Adams MD [Primary Care Provider] - 1-2 days
--- NOTE | 2017-03-26 07:54 | XR ---
EXAMINATION TYPE: XR shoulder complete RT DATE OF EXAM: 03/26/2017 CLINICAL HISTORY: Right shoulder pain TECHNIQUE: Three views of the right shoulder are obtained. COMPARISON: None. FINDINGS: There is no acute fracture/dislocation evident in the right shoulder. High riding humeral head is consistent with chronic rotator cuff tear. There is joint space loss and spurring at acromioc lavicular joint. Osseous structures are demineralized. The visualized ribs are intact and unremarkabl e. IMPRESSION: There is demineralization with acromioclavicular joint arthropathy and presumed chronic rotator cuff tear.
[2017-03-26] MEDS ORDERED: NALOXONE 0.4 MG/ML 1 ML VIAL IV PRN (07:59)
[2017-03-26 08:31] LABS: Appearance,Urine Cloudy (Clear); Bacteria,Urine Moderate /hpf; Bilirubin,Urine Negative (Negative); Glucose,Urine (UA) Negative (Negative); Ketones,Urine Negative (Negative); Leukocyte Esterase,Urine Large (Negative); Mucus,Urine Rare /hpf; Nitrite,Urine Negative (Negative); Particle Count 41783; Protein,Urine 2+ (Negative); RBC,Urine 4 /hpf (0-5); Specific Gravity,Urine 1.012 (1.001-1.035); UA Billing (MACRO vs. MICRO) MICRO; Urobilinogen,Urine <2.0 mg/dL (<2.0); WBC,Urine 181 /hpf (0-5)
[2017-03-26] MEDS: SODIUM CHLORIDE 0.9% 1,000 ML IV SCH (09:17)
[2017-03-26] MEDS ORDERED: IPRATROPIUM-ALBUTEROL 3 ML NEB INHALATION PRN (10:09)
[2017-03-26 10:20] VITALS: BMI 32.7
[2017-03-26] MEDS: SEVELAMER 800 MG TAB PO SCH ×3 (11:12→17:12)
[2017-03-26] MEDS: busPIRone HCl 5 MG TAB PO SCH ×2 (11:13→21:06)
[2017-03-26] MEDS: CLOPIDOGREL 75 MG TAB PO SCH (11:13)
[2017-03-26] MEDS: LEVOTHYROXINE 50 MCG TAB PO SCH (11:13)
[2017-03-26] MEDS: NIACIN TR 500 MG CAPSULE.ER PO SCH (11:13)
[2017-03-26] MEDS: IPRATROPIUM-ALBUTEROL 3 ML NEB INHALATION SCH ×3 (11:45→20:19)
[2017-03-26] MEDS: diphenhydrAMINE 50 MG CAP PO SCH ×3 (12:19→21:06)
[2017-03-26 12:26] LABS: Glucose,Whole Blood 137 mg/dL (75-99)
[2017-03-26] MEDS: INSULIN LISPRO (humaLOG) 300 UNIT/3 ML VIAL SQ SCH ×3 (13:02→21:07)
[2017-03-26 13:32] LABS: Hemoglobin A1C 5.6 % (4.2-6.1)
[2017-03-26] MEDS ORDERED: HYDROCORTISONE 1% CREAM 30 GM TUBE TOPICAL PRN (16:02)
[2017-03-26] MEDS: MIDODRINE 5 MG TAB PO SCH (17:12)
[2017-03-26 17:45] LABS: Glucose,Whole Blood 104 mg/dL (75-99)
[2017-03-26 20:58] LABS: Glucose,Whole Blood 105 mg/dL (75-99)
[2017-03-26] MEDS ORDERED: OMEGA PO SCH (21:00)
[2017-03-26] MEDS: ATORVASTATIN 10 MG TAB PO SCH (21:06)
[2017-03-26] MEDS: MONTELUKAST 10 MG TAB PO SCH (21:07)
[2017-03-26] MEDS: ALPRAZolam 0.25 MG TAB PO SCH (22:29)
[2017-03-27] MEDS: LEVOTHYROXINE 50 MCG TAB PO SCH (06:00)
[2017-03-27 07:32] LABS: Glucose,Whole Blood 80 mg/dL (75-99)
[2017-03-27] MEDS: INSULIN LISPRO (humaLOG) 300 UNIT/3 ML VIAL SQ SCH ×4 (08:14→20:58)
[2017-03-27 08:15] LABS: Calcium 8.4 mg/dL (8.4-10.2); Potassium 4.2 mmol/L (3.5-5.1); Total Bilirubin 0.3 mg/dL (0.2-1.3); Total Protein 4.7 g/dL (6.3-8.2)
[2017-03-27] MEDS: ALLOPURINOL 100 MG TAB PO SCH (08:17)
[2017-03-27] MEDS: busPIRone HCl 5 MG TAB PO SCH ×2 (08:17→20:58)
[2017-03-27] MEDS: CLOPIDOGREL 75 MG TAB PO SCH (08:17)
[2017-03-27] MEDS: ASPIRIN 81 MG CHEW PO SCH (08:17)
[2017-03-27] MEDS: FUROSEMIDE 40 MG TAB PO SCH (08:18)
[2017-03-27] MEDS: SEVELAMER 800 MG TAB PO SCH ×3 (08:18→18:21)
[2017-03-27] MEDS: diphenhydrAMINE 50 MG CAP PO SCH ×3 (08:18→21:46)
[2017-03-27] MEDS: NIACIN TR 500 MG CAPSULE.ER PO SCH (08:18)
[2017-03-27] MEDS: MULTIVITAMINS, THERA 1 EACH TAB PO SCH (08:19)
[2017-03-27 08:25] LABS: Anisocytosis Slight; Basophils % (A) 1 %; CH 33.7; CHCM 31.9; Eosinophils # (A) 0.2 k/uL (0-0.7); Eosinophils % (A) 3 %; HCT 29.2 % (34.0-46.0); HDW 2.84; Hypochromasia Slight; Luc % (Auto) 3; Lymphocytes # (A) 1.3 k/uL (1.0-4.8); Lymphocytes % (A) 18 %; MCH 34.4 pg (25.0-35.0); MCHC 32.3 g/dL (31.0-37.0); MCV 106.5 fL (80.0-100.0); Macrocytosis Marked; Mean Platelet Volume 6.7; Monocytes # (A) 0.3 k/uL (0-1.0); Monocytes % (A) 5 %; Neutrophils # (A) 5.1 k/uL (1.3-7.7); Neutrophils % (A) 71 %; RBC 2.74 m/uL (3.80-5.40); RDW 19.9 % (11.5-15.5); WBC 7.1 k/uL (3.8-10.6); WBC (Perox) 7.47
[2017-03-27 08:29] LABS: HGB 9.4 gm/dL (11.4-16.0)
[2017-03-27] MEDS: IPRATROPIUM-ALBUTEROL 3 ML NEB INHALATION SCH ×4 (08:35→19:45)
[2017-03-27] MEDS: traMADol 50 MG TAB PO PRN ×3 (08:41→19:41)
[2017-03-27] MEDS ORDERED: NON-FORMULARY DRUG (Calcium/Magnesium/Zinc [Calcium-Magnesium-Zinc Tablet] 1 TAB) PO SCH (09:00)
--- NOTE | 2017-03-27 09:07 | HP ---
DATE OF SERVICE: 03/26/2017 Chief complaints are weakness and UTI. HISTORY OF PRESENT ILLNESS: This is an 82-year-old woman with the past medical history of multiple medical problems including recurrent UTI, secondary infection as well as chronic renal failure being followed by Dr. Tone Adams in the outpatient setting was not feeling well. The patient has increasing weakness and some confusion also. Patient came to [facility], admitted for further evaluation and treatment. The patient is taking Levaquin on an outpatient basis for possible UTI. There is no history of any fever, chills or rigors. No history of headache or loss of consciousness. Temperature is 96.5. PAST MEDICAL HISTORY: History of chronic renal failure, history of asthma, COPD , hypertension, hyperlipidemia, multiple medical issues. Medications prior to admission include, home medications are reviewed: 1. Requip 1 mg p.o. q.h.s. 2. Benadryl 50 mg p.o. b.i.d. 3. BuSpar 15 mg b.i.d. 4. Trimethoprim 100 mg q.h.s. 5. Zocor 20 mg q.h.s. 6. Renvela 1600 mg p.o. t.i.d. 7. [place] 3-6-9 one p.o. b.i.d. 9. Niacin 500 mg p.o. daily. 10. Multivitamin 1 p.o. daily. 11. Singulair 10 mg q.h.s. 12. ProAmatine 5 mg Sunday, Sunday, Sunday. 13. Synthroid 50 mcg p.o. daily. 14. Lasix 40 mg Sunday, Sunday, , Sunday. 15. Vitamin D2 fifth thousand p.o. . 16. Cranberry Gummies 1 tablet p.o. b.i.d. 17. Plavix 75 mg p.o. daily. 18. Cipro 500 mg p.o. b.i.d. 19. Zyrtec 1 tablet p.o. daily. 20. Calcium-magnesium 1 tablet p.o. daily. 21. Ecotrin 81 mg p.o. daily. 22. Anti-aging tablet. 23. Zyloprim 100 mg p.o. daily. 23. Ventolin 2.5 q.i.d. p.r.n. 24. Xanax 0.25 q.h.s. Allergies are PENICILLIN, SHELLFISH and SULFA. FAMILY HISTORY: History of cancer in the family. SOCIAL HISTORY: Previous history smoking, no history of alcohol intake. REVIEW OF SYSTEMS: ENT: Diminished hearing, diminished vision. CARDIOVASCULAR: As mentioned earlier. RESPIRATORY: As mentioned earlier. GI: As mentioned earlier. : As mentioned earlier. NERVOUS SYSTEM: As mentioned earlier. ALLERGY/IMMUNOLOGY: No history of asthma. MUSCULOSKELETAL: As mentioned earlier. DERMATOLOGY: Negative. ENDOCRINE: As mentioned earlier. CONSTITUTIONAL: As mentioned earlier. RHEUMATOLOGY: As mentioned earlier. PSYCHIATRY: As mentioned earlier. PHYSICAL EXAMINATION: The patient is alert and oriented x2. Pulse 72, blood pressure 120/60, respirations 18, temperature is 98.4, pulse ox 96% on room air. HEENT: Conjunctivae normal, oral mucosal moist. NECK: No jugular venous distension, no carotid bruit, no lymph node enlargement , no thyroid enlargement. CARDIOVASCULAR SYSTEM: S1, S2, muffled. RESPIRATORY: Breath sounds diminished at the bases, a few scattered rhonchi, no crackles, respiratory wheezing also present. ABDOMEN: Soft, nontender, no mass palpable. LEGS: No edema, no swelling. NERVOUS SYSTEM: Higher functions as mentioned. Moves all 4 limbs, no focal motor deficits. LYMPHATICS: No lymph node enlargement. SKIN: No ulcers, rash, or bleeding. Labs are at this time showed WBC 11, hemoglobin is 7.5, sodium 130, potassium 4.4, creatinine is 5.20. UA noted. ASSESSMENT: 1. Urinary tract infection with sepsis and change in mental status me encephalopathy. 2. Chronic renal failure, on hemodialysis. 3. Asthma, chronic obstructive pulmonary disease. 4. Hypertension. 5. Hyperlipidemia. 6. History of appendectomy. RECOMMENDATION AND DISCUSSION: Continue with the current medications. Continue with the symptomatic treatment. Will initiate the broad-spectrum IV antibiotics. Otherwise, obtain a culture. Resume the home medications. See orders for further details. Further recommendations to follow. MTDD
[2017-03-27 10:08] LABS: Basophilic Stippling Present
--- NOTE | 2017-03-27 10:29 | CONS ---
REASON FOR CONSULTATION: Renal failure. HISTORY OF PRESENT ILLNESS: Patient is an 82-year-old female with history of endstage renal disease on hemodialysis on Sunday, Sunday, Sunday schedule. Patient was admitted to the hospital with history of fall. Patient states that she had been significantly weak and unable to get out of her chair. She has a history of repeat urinary tract infections. Patient was dialyzed in the hospital yesterday. She states she is feeling much better. She has been able to get around. PAST MEDICAL HISTORY: Asthma, coronary artery disease, chronic obstructive pulmonary disease, type 2 diabetes, endstage renal disease, anemia of chronic disease, CKD bone mineral disorder, hypothyroidism, obstructive sleep apnea. PAST SURGICAL HISTORY: Appendectomy, breast surgery, cholecystectomy, cardiac catheterization, aortic valve replacement, colonoscopy, EGD, PermCath placement. SOCIAL HISTORY: Patient is an ex-smoker, no history of drug abuse or alcohol abuse. REVIEW OF SYSTEMS: As per HPI, other systems negative. Medications at home include: Zyloprim, Zyrtec, Synthroid, Midodrine, Renvela, Zocor, Plavix, Singulair, Ecotrin, BuSpar, inhalers, Xanax, Benadryl, Requip. ALLERGIES INCLUDE PENICILLIN, SULFA, SHELL FISH. On examination, patient is currently comfortable, awake, alert and oriented x 3 , not in any acute distress. She is sitting up in bedside chair. Blood pressure is 111/71, heart rate is 76 per minute. She is afebrile. Examination of the heart: S1, S2. Examination of lungs: Bilateral breath sounds are heard. Abdomen is soft, nontender, obese. Examination of lower extremities shows no chronic skin changes with trace edema noted bilaterally. [employer] exam is grossly intact. Labs show hemoglobin of 9.4 g/dL, sodium of 139, potassium 4.2. ASSESSMENT: 1. Endstage renal disease on hemodialysis on Sunday, Sunday and Sunday schedule, status post dialysis yesterday. Will plan for treatment again tomorrow. 2. Anemia of chronic disease. 3. Status post fall and weakness in patient with history of hypotension. She is maintained on midodrine on a regular basis as outpatient. Systolic blood pressure was not low when she had come in. 4. Rule out urinary tract infection. Urine culture is currently in progress and patient is currently not on any antibiotics. Will continue to follow. Plan : Repeat hemodialysis in a.m. If patient is able to tolerate her treatment well she could be discharged from nephrology standpoint. 5. CKD bone mineral disorder. PLAN: Repeat dialysis tomorrow. Possible discharge tomorrow after dialysis and follow up on the urine culture results. KYLAH
[2017-03-27 11:10] LABS: Glucose,Whole Blood 110 mg/dL (75-99)
[2017-03-27] MEDS: SODIUM CHLORIDE 0.9% 1,000 ML IV SCH (11:16)
[2017-03-27] MEDS: ACETAMINOPHEN TAB 325 MG TAB PO PRN ×2 (12:42→21:46)
[2017-03-27] MEDS ORDERED: FLUTICASONE 50MCG/SPRAY NASAL 16GM EA NOSTRIL PRN (16:12)
[2017-03-27 17:39] LABS: Glucose,Whole Blood 136 mg/dL (75-99)
[2017-03-27 20:03] LABS: Glucose,Whole Blood 166 mg/dL (75-99)
[2017-03-27] MEDS: ATORVASTATIN 10 MG TAB PO SCH (20:58)
[2017-03-27] MEDS: MONTELUKAST 10 MG TAB PO SCH (20:58)
[2017-03-27] MEDS: ALPRAZolam 0.25 MG TAB PO SCH (20:58)
[2017-03-28] MEDS: traMADol 50 MG TAB PO PRN (04:20)
[2017-03-28] MEDS: ACETAMINOPHEN TAB 325 MG TAB PO PRN (04:20)
[2017-03-28] MEDS: LEVOTHYROXINE 50 MCG TAB PO SCH (05:51)
[2017-03-28] MEDS: IPRATROPIUM-ALBUTEROL 3 ML NEB INHALATION SCH ×4 (07:20→18:35)
[2017-03-28 07:31] LABS: Glucose,Whole Blood 87 mg/dL (75-99)
[2017-03-28] MEDS: INSULIN LISPRO (humaLOG) 300 UNIT/3 ML VIAL SQ SCH ×4 (08:23→20:56)
[2017-03-28] MEDS: busPIRone HCl 5 MG TAB PO SCH ×2 (08:24→20:56)
[2017-03-28] MEDS: NIACIN TR 500 MG CAPSULE.ER PO SCH (08:24)
[2017-03-28] MEDS: MIDODRINE 5 MG TAB PO SCH (08:24)
[2017-03-28] MEDS: ALLOPURINOL 100 MG TAB PO SCH (08:24)
[2017-03-28] MEDS: ASPIRIN 81 MG CHEW PO SCH (08:24)
[2017-03-28] MEDS: SEVELAMER 800 MG TAB PO SCH ×3 (08:24→17:50)
[2017-03-28] MEDS: CLOPIDOGREL 75 MG TAB PO SCH (08:24)
[2017-03-28 08:36] LABS: Anisocytosis Slight; Basophils % (A) 0 %; CH 33.4; CHCM 31.4; Eosinophils # (A) 0.4 k/uL (0-0.7); Eosinophils % (A) 4 %; HCT 31.5 % (34.0-46.0); HDW 2.91; HGB 10.1 gm/dL (11.4-16.0); Hypochromasia Slight; Luc # (Auto) 0.29; Luc % (Auto) 3; Lymphocytes # (A) 1.9 k/uL (1.0-4.8); Lymphocytes % (A) 19 %; MCH 34.3 pg (25.0-35.0); MCV 107.3 fL (80.0-100.0); Macrocytosis Marked; Mean Platelet Volume 6.7; Monocytes # (A) 0.4 k/uL (0-1.0); Monocytes % (A) 4 %; Neutrophils # (A) 6.7 k/uL (1.3-7.7); Neutrophils % (A) 69 %; RBC 2.93 m/uL (3.80-5.40); WBC 9.7 k/uL (3.8-10.6); WBC (Perox) 9.78
[2017-03-28 08:54] LABS: Calcium 8.7 mg/dL (8.4-10.2); Potassium 4.1 mmol/L (3.5-5.1)
--- NOTE | 2017-03-28 10:32 | CDI ---
In responding to this query, please exercise your independent professional judgment. The [facility] Coding Staff and Clinical Documentation Specialists appreciate your assistance in clarifying documentation, maintaining compliance with coding guidelines, accurately documenting patients condition and capturing severity of illness. The fact that a question is asked does not imply that any particular answer is desired or expected. Communication forms are a method of clarifying documentation and are not made part of the Legal Health Record. Thank you in advance for your clarification. Last Revision, October 2015 Jose Oh [address] [place] [address] Documentation Clarification Form Date: 03/28/2017 10:14:00 AM From: Riri Salvador RN, CCDS Admit Date: 03/26/2017 8:07:00 AM Patient Name: Bhavana Rodriguez Visit Number: [id number] Dr. Claudine Briceno Asthma is documented in the H&P and requires further specificity. Patient history/risk factors: Asthma, COPD, ESRD, DM2 Clinical Indicators: 03/26 H&P: "Asthma, COPD." CXR:- Vital Signs: Temp 99, HR 75, RR 18, B/P 137/64, Spo2 96% RA Treatment: Medication: Duoneb QID and Q 2 hrs PRN SOB, Xanax .25 mg PO Q HS, Benadryl 50 mg PO TID, Singulair 10 mg PO Q HS Consults: Nephro In your professional opinion, can you please further specify the following, if known? With Acute Exacerbation Status asthmaticus Acute lower respiratory infection COPD (specify with or without exacerbation) Chronic obstructive bronchitis Other, please specify Unable to determine Severity Mild intermittent Mild persistent Moderate persistent Severe persistent Other, please specify ____ Unable to determine Form or Type Cough variant Childhood Exercise induced bronchospasm Extrinsic allergic Idiosyncratic Intrinsic nonallergic Late-onset Mixed Other, please specify Unable to determine Please document in your progress notes and discharge summary in order to capture severity of illness and risk of mortality. Include clinical findings that support your diagnosis. FYI: Press F11 to launch patient chart. MTDD
--- NOTE | 2017-03-28 10:53 | PN ---
DATE OF SERVICE: 03/27/2017 This 82-year-old woman was admitted with features of UTI and sepsis, also had change in mental status. The patient is complaining of severe back pain and as well as weakness at this time. No chest pain, no palpitations, no fever. On exam, alert and oriented x3. Pulse is 79, blood pressure 107/44, respirations 16, temperature 97.4, pulse ox 97% on room air. HEENT: Conjunctivae normal. NECK: No jugular venous distention. CARDIOVASCULAR: S1, S2. RESPIRATORY: Breath sounds diminished at the bases. A few scattered rhonchi and crackles. ABDOMEN: Soft, nontender, no mass palpable. LEGS: No edema, no swelling. NERVOUS SYSTEM: No focal deficits. LABS: WBC 7, hemoglobin 9.4, creatinine 3.48, albumin is 2.6. ASSESSMENT: 1. Urinary tract infection with possible sepsis, change in mental status, metabolic encephalopathy present on admission. 2. Generalized weakness and tiredness. 3. Gait dysfunction, possibly secondary to sepsis. 4. Chronic renal failure on hemodialysis. 5. Asthma, chronic obstructive pulmonary disease. 6. Hypertension. 7. Hyperlipidemia. 8. History of appendectomy. RECOMMENDATIONS AND DISCUSSION: I recommend to continue the current medications, continue with monitoring, continue symptomatic treatment. Otherwise at this time, I recommend PT, OT evaluation. Continue antibiotics. Possibly ECF rehab. Guarded prognosis. Further recommendations to follow. MTDD
[2017-03-28 11:40] LABS: Glucose,Whole Blood 97 mg/dL (75-99)
[2017-03-28] MEDS: diphenhydrAMINE 50 MG CAP PO SCH ×3 (12:19→20:56)
[2017-03-28] MEDS: SODIUM CHLORIDE 0.9% 1,000 ML IV SCH (12:20)
[2017-03-28] MEDS: MULTIVITAMINS, THERA 1 EACH TAB PO SCH (16:22)
[2017-03-28 16:35] LABS: Glucose,Whole Blood 102 mg/dL (75-99)
[2017-03-28 20:29] LABS: Glucose,Whole Blood 180 mg/dL (75-99)
[2017-03-28] MEDS: MONTELUKAST 10 MG TAB PO SCH (20:56)
[2017-03-28] MEDS: ATORVASTATIN 10 MG TAB PO SCH (20:56)
[2017-03-28] MEDS: ALPRAZolam 0.25 MG TAB PO SCH (20:56)
--- NOTE | 2017-03-29 05:58 | PN ---
DATE OF SERVICE: 03/28/2017 This 82-year-old woman who was admitted with UTI and sepsis, also had generalized weakness and tiredness. No chest pain or palpitation. No fever. The patient is complaining of tiredness and weakness as well. On exam, alert and oriented x3. Pulse 76, blood pressure 137/57, respirations 16, temperature 97.4, pulse ox 97% on room air. HEENT: Conjunctivae normal. NECK: No jugular venous distention. CARDIOVASCULAR: S1 and S2 muffled. RESPIRATORY: Breath sounds diminished at the bases. A few scattered rhonchi and crackles. ABDOMEN: Soft, nontender. LEGS: No edema, no swelling. NERVOUS SYSTEM: Diffusely weak. LABS: WBC 9.7, hemoglobin 10.1. Creatinine is 4.58. ASSESSMENT: 1. Urinary tract infection with possible sepsis. 2. Change in mental status, metabolic encephalopathy present on admission. 3. Generalized weakness and tiredness. 4. Gait dysfunction, possibly secondary to sepsis. 5. Chronic renal failure on hemodialysis. 6. Asthma, chronic obstructive pulmonary disease, no exacerbation. RECOMMENDATION AND DISCUSSION: Recommend to continue current medications. Continue to monitor symptomatic treatment. Otherwise, we will continue the current medications, continue with symptomatic treatment. Continue to monitor. Further recommendations to follow. MTDD
[2017-03-29] MEDS: traMADol 50 MG TAB PO PRN (06:05)
[2017-03-29] MEDS: LEVOTHYROXINE 50 MCG TAB PO SCH (06:05)
[2017-03-29 07:08] LABS: Glucose,Whole Blood 85 mg/dL (75-99)
[2017-03-29] MEDS: INSULIN LISPRO (humaLOG) 300 UNIT/3 ML VIAL SQ SCH ×4 (07:12→20:23)
[2017-03-29] MEDS: NIACIN TR 500 MG CAPSULE.ER PO SCH (07:54)
[2017-03-29] MEDS: SEVELAMER 800 MG TAB PO SCH ×3 (07:54→17:48)
[2017-03-29] MEDS: ALLOPURINOL 100 MG TAB PO SCH (07:55)
[2017-03-29] MEDS: diphenhydrAMINE 50 MG CAP PO SCH ×3 (07:55→20:23)
[2017-03-29] MEDS: busPIRone HCl 5 MG TAB PO SCH ×2 (07:55→20:23)
[2017-03-29] MEDS: ASPIRIN 81 MG CHEW PO SCH (07:55)
[2017-03-29] MEDS: FUROSEMIDE 40 MG TAB PO SCH (07:55)
[2017-03-29] MEDS: CLOPIDOGREL 75 MG TAB PO SCH (07:55)
[2017-03-29] MEDS: SODIUM CHLORIDE 0.9% 1,000 ML IV SCH (07:56)
[2017-03-29 08:18] LABS: Anisocytosis Moderate; Basophils % (A) 0 %; CH 33.5; CHCM 31.7; Eosinophils # (A) 0.4 k/uL (0-0.7); Eosinophils % (A) 5 %; HCT 29.4 % (34.0-46.0); HDW 2.99; HGB 9.4 gm/dL (11.4-16.0); Hypochromasia Slight; Luc % (Auto) 2; Lymphocytes # (A) 1.1 k/uL (1.0-4.8); Lymphocytes % (A) 13 %; MCH 33.9 pg (25.0-35.0); MCHC 31.8 g/dL (31.0-37.0); MCV 106.4 fL (80.0-100.0); Macrocytosis Marked; Mean Platelet Volume 6.8; Monocytes # (A) 0.4 k/uL (0-1.0); Monocytes % (A) 5 %; Neutrophils # (A) 6.5 k/uL (1.3-7.7); Neutrophils % (A) 75 %; RBC 2.77 m/uL (3.80-5.40); RDW 20.2 % (11.5-15.5); WBC 8.7 k/uL (3.8-10.6); WBC (Perox) 8.57
[2017-03-29 08:32] LABS: Calcium 8.9 mg/dL (8.4-10.2); Potassium 4.3 mmol/L (3.5-5.1)
[2017-03-29] MEDS: IPRATROPIUM-ALBUTEROL 3 ML NEB INHALATION SCH ×4 (08:32→20:58)
[2017-03-29 10:27] LABS: Basophilic Stippling Present; Manual Review Performed; Toxic Granulation Present
[2017-03-29] MEDS ORDERED: DARBEPOETIN ALFA 25 MCG/0.42 ML SYRINGE SQ SCH (11:00)
--- NOTE | 2017-03-29 11:43 | PN ---
Patient is seen for follow up for end-stage renal disease. She is currently ( ). She had her dialysis yesterday which patient tolerated well. She denies any significant complaints. Her urine culture shows coagulase negative staph. On examination, blood pressure is 150/65, heart rate 94, temperature is afebrile. Examination of the heart S1, S2. Examination of the lungs, bilateral breath sounds are heard. Abdomen is soft, nontender, obese. Exam of the lower extremities shows no significant edema. WRIST LINER exam is grossly intact. Patient is moving all 4 extremities. Labs show sodium 139, potassium 4.3, hemoglobin 9.4 gm/dL. ASSESSMENT: 1. Endstage renal disease on hemodialysis on a Sunday, Sunday, Sunday schedule. We will arrange for hemodialysis tomorrow if patient is still in the hospital. 2. Weakness, currently improved; however, patient does have significant disability. She is being considered for rehab. 3. Anemia of chronic disease, will maintain patient on Aranesp. No active bleeding noted at this time. PLAN: Hemodialysis in a.m. if patient is still in the hospital. Start Aranesp for anemia. JORDOND
[2017-03-29] MEDS ORDERED: ERGOCALCIFEROL 50,000 UNIT CAP PO SCH (12:00)
[2017-03-29 12:08] LABS: Glucose,Whole Blood 141 mg/dL (75-99)
--- NOTE | 2017-03-29 13:59 | FL ---
EXAMINATION TYPE: FL barium swallow w video DATE OF EXAM: 03/29/2017 COMPARISON: NONE HISTORY: Difficulty with swallowing with COPD TECHNIQUE: Fluoroscopy. FINDINGS: Fluoroscopic guidance was provided for the procedure performed in conjunction with the [facility] pathology department. Please see complete report forthcoming from the Speech Pathology departmen t. Various consistencies from thin liquid to solids were administered. No aspiration or penetration was evident. No significant pooling was observed in the vallecula. There was normal propulsion of the bolus. IMPRESSION: 1. No aspiration or penetration during this examination
[2017-03-29] MEDS: MULTIVITAMINS, THERA 1 EACH TAB PO SCH (14:21)
[2017-03-29 17:12] LABS: Glucose,Whole Blood 119 mg/dL (75-99)
[2017-03-29 20:07] LABS: Glucose,Whole Blood 126 mg/dL (75-99)
[2017-03-29] MEDS: ATORVASTATIN 10 MG TAB PO SCH (20:22)
[2017-03-29] MEDS: ALPRAZolam 0.25 MG TAB PO SCH (20:22)
[2017-03-29] MEDS: MONTELUKAST 10 MG TAB PO SCH (20:22)
[2017-03-30] MEDS: LEVOTHYROXINE 50 MCG TAB PO SCH (06:17)
[2017-03-30 07:30] LABS: Glucose,Whole Blood 92 mg/dL (75-99)
[2017-03-30] MEDS: IPRATROPIUM-ALBUTEROL 3 ML NEB INHALATION SCH ×4 (07:35→19:21)
[2017-03-30] MEDS: INSULIN LISPRO (humaLOG) 300 UNIT/3 ML VIAL SQ SCH ×4 (07:41→21:44)
[2017-03-30] MEDS: busPIRone HCl 5 MG TAB PO SCH ×2 (07:53→21:42)
[2017-03-30] MEDS: diphenhydrAMINE 50 MG CAP PO SCH ×3 (07:54→21:42)
[2017-03-30] MEDS: SEVELAMER 800 MG TAB PO SCH ×3 (07:54→18:16)
[2017-03-30] MEDS: CLOPIDOGREL 75 MG TAB PO SCH (07:54)
[2017-03-30] MEDS: ASPIRIN 81 MG CHEW PO SCH (07:54)
[2017-03-30] MEDS: NIACIN TR 500 MG CAPSULE.ER PO SCH (07:55)
[2017-03-30] MEDS: ALLOPURINOL 100 MG TAB PO SCH (07:55)
[2017-03-30] MEDS: MULTIVITAMINS, THERA 1 EACH TAB PO SCH (07:55)
[2017-03-30] MEDS: MIDODRINE 5 MG TAB PO SCH (07:55)
[2017-03-30] MEDS: SODIUM CHLORIDE 0.9% 1,000 ML IV SCH (07:56)
--- NOTE | 2017-03-30 09:00 | PN ---
DATE OF SERVICE: 03/29/2017 This 82-year-old woman who was admitted with UTI with sepsis also had change in mental status. Also the patient is improving significantly. The patient also had a swallow evaluation today, showed no aspiration or penetration. No chest pain or palpitation. No fever. On exam, alert and oriented x3. Pulse 84, blood pressure 130/59, respirations 16, temperature is 98.3, pulse ox 95% on room air. HEENT: Conjunctivae normal. NECK: No jugular venous distention. CARDIOVASCULAR: S1 and S2 muffled RESPIRATORY: Breath sounds diminished at the base. A few scattered rhonchi and crackles. ABDOMEN: Soft, nontender. LEGS: No edema, no swelling. NERVOUS SYSTEM: No focal deficits. Labs are WBC 8.7, hemoglobin 9.4. Creatinine is 3.52. ASSESSMENT: 1. Urinary tract infection with possible sepsis, present on admission. 2. Change in mental status, metabolic encephalopathy, present on admission. 3. Generalized weakness and tiredness. 4. Gait dysfunction. 5. Possible sepsis. 6. Chronic renal failure on hemodialysis. 7. Asthma, chronic obstructive pulmonary disease, no exacerbation. RECOMMENDATIONS AND DISCUSSION: Recommend to continue current medications. Continue symptomatic treatment. PT, OT evaluation. Otherwise, possible ECF rehab. Closely follow with Nephrology with hemodialysis. Further recommendations to follow. [facility]
[2017-03-30 09:20] LABS: Anisocytosis Moderate; Basophils % (A) 0 %; CH 34.1; CHCM 31.5; Eosinophils # (A) 0.5 k/uL (0-0.7); Eosinophils % (A) 5 %; HCT 32.6 % (34.0-46.0); HDW 3.01; HGB 10.2 gm/dL (11.4-16.0); Hypochromasia Slight; Luc # (Auto) 0.22; Luc % (Auto) 2; Lymphocytes # (A) 1.2 k/uL (1.0-4.8); Lymphocytes % (A) 12 %; MCH 34.1 pg (25.0-35.0); MCHC 31.3 g/dL (31.0-37.0); MCV 109.1 fL (80.0-100.0); Macrocytosis Marked; Monocytes # (A) 0.5 k/uL (0-1.0); Monocytes % (A) 5 %; Neutrophils # (A) 7.4 k/uL (1.3-7.7); Neutrophils % (A) 75 %; RBC 2.99 m/uL (3.80-5.40); RDW 20.6 % (11.5-15.5); WBC 9.8 k/uL (3.8-10.6); WBC (Perox) 10.49
[2017-03-30 09:44] LABS: Calcium 9.2 mg/dL (8.4-10.2); Potassium 4.5 mmol/L (3.5-5.1)
--- NOTE | 2017-03-30 11:34 | PN ---
The patient is seen for follow-up for end stage renal disease. The patient was admitted to the hospital with weakness. There was initially concern for urine infection, however, urine culture grew coagulase negative Staph. Overall the patient is feeling better. She was supposed to get discharged yesterday but she is complaining of diarrhea today the patient is normally maintained on a Sunday, Sunday, Sunday schedule for dialysis via left arm AV graft. On examination today, blood pressure is 130/62. Heart rate is 80 per minute. She is afebrile. Examination of the heart, S1, S2. Examination of the lungs bilateral breath sounds are heard. Abdomen is soft, obese, nontender. Examination of the lower extremities chronic skin changes. Trace edema bilaterally. STRAIGHT CUTTER exam is grossly intact. Labs shows sodium 136, potassium 4.5, hemoglobin 10.2. ASSESSMENT: 1. End stage renal disease on hemodialysis on Sunday, Sunday, Sunday schedule. We will arrange for hemodialysis today. 2. Diarrhea. Rule out C. dif colitis. 3. Anemia of chronic disease maintained on Aranesp. 4. Chronic kidney disease, bone mineral disorder, maintained on Renvela. 5. End stage renal disease on hemodialysis via a left arm AV graft. The patient is maintained on a Sunday, Sunday, Sunday schedule. PLAN: Hemodialysis today. Follow-up on the results of the stool tests for C. dif toxin. JORDOND
[2017-03-30 11:54] LABS: Glucose,Whole Blood 88 mg/dL (75-99)
[2017-03-30] MEDS: LOPERAMIDE 2 MG CAP PO PRN ×2 (12:39→21:43)
[2017-03-30 17:28] LABS: Glucose,Whole Blood 135 mg/dL (75-99)
[2017-03-30 20:40] LABS: Glucose,Whole Blood 137 mg/dL (75-99)
[2017-03-30] MEDS: ALPRAZolam 0.25 MG TAB PO SCH (21:42)
[2017-03-30] MEDS: ATORVASTATIN 10 MG TAB PO SCH (21:42)
[2017-03-30] MEDS: MONTELUKAST 10 MG TAB PO SCH (21:42)
[2017-03-31] MEDS: LOPERAMIDE 2 MG CAP PO PRN ×3 (06:29→21:50)
[2017-03-31] MEDS: LEVOTHYROXINE 50 MCG TAB PO SCH (06:29)
[2017-03-31] MEDS: IPRATROPIUM-ALBUTEROL 3 ML NEB INHALATION SCH ×4 (07:30→20:20)
[2017-03-31 07:44] LABS: Glucose,Whole Blood 107 mg/dL (75-99)
[2017-03-31] MEDS: diphenhydrAMINE 50 MG CAP PO SCH ×3 (08:20→21:43)
[2017-03-31] MEDS: ALLOPURINOL 100 MG TAB PO SCH (08:20)
[2017-03-31] MEDS: busPIRone HCl 5 MG TAB PO SCH ×2 (08:20→21:42)
[2017-03-31] MEDS: CLOPIDOGREL 75 MG TAB PO SCH (08:20)
[2017-03-31] MEDS: INSULIN LISPRO (humaLOG) 300 UNIT/3 ML VIAL SQ SCH ×4 (08:21→21:44)
[2017-03-31] MEDS: ASPIRIN 81 MG CHEW PO SCH (08:21)
[2017-03-31] MEDS: SEVELAMER 800 MG TAB PO SCH ×4 (08:21→19:05)
[2017-03-31] MEDS: NIACIN TR 500 MG CAPSULE.ER PO SCH (08:22)
[2017-03-31] MEDS: SODIUM CHLORIDE 0.9% 1,000 ML IV SCH (08:38)
[2017-03-31] MEDS: FUROSEMIDE 40 MG TAB PO SCH (08:38)
--- NOTE | 2017-03-31 11:26 | P.PN ---
Subjective Principal diagnosis: Bhavana is a 82-year-old ESRD patient on dialysis Sunday who came in because of profound weakness. She has been complaining of loose stools as well as recently had diagnosis of urine tract infection. Workup so far has shown a C. diff negative, blood cultures have been negative from 03/26/2017 and a urine culture had grown coagulase negative staph at this time. She continues to have loose stools as of last night. Appetite is fair. No nausea vomiting abdominal pain. No fever chills. Does complain of cough and shortness of breath. A chest x-ray done on was rather unremarkable. No new x-rays have been performed on this admission patient does have a few crackles which is known with COPD She was seen on dialysis this morning. Blood pressure in the 140s ultrafiltration goal is 2 L. Objective - Vital Signs Vital signs: Vital Signs Temp 97.9 F 03/31/17 07:00 Pulse 92 03/31/17 07:40 Resp 16 03/31/17 07:00 BP 157/67 03/31/17 07:00 Pulse Ox 94 L 03/31/17 07:00 Intake & Output 03/30/17 03/31/17 03/31/17 18:59 06:59 18:59 Intake Total 300 Balance 300 Weight 73.482 kg 74.5 kg Intake: Oral 300 Other: Voiding Method Bedside Commode Bedside Commode # Voids 3 # Bowel Movements 1 On examination she is awake alert oriented comfortable. HEENT exam no JVP neck is supple no facial asymmetry Lungs are significant for bilateral coarse crackle with fair amount of air entry and no dullness to percussion Heart sounds are unremarkable for any murmur rub gallop abdomen soft nontender obese Extremity exam was trace edema Neurologically awake alert oriented. Generalized weakness. - Labs CBC & Chem 7: 03/30/17 08:50 03/30/17 08:50 Labs: Abnormal Lab Results - Last 24 Hours (Table) 03/30/17 03/30/17 03/31/17 Range/Units 17:26 20:35 07:05 POC Glucose (mg/dL) 135 H 137 H 107 H (75-99) mg/dL Microbiology - Last 24 Hours (Table) 03/26/17 11:34 Blood Culture - Preliminary Blood No Growth after 96 hours Assessment and Plan Plan: Impression. 1. ESRD on dialysis Sunday. Dialysis yesterday on Sunday was rescheduled this morning because of logistic reasons. 2. Generalized weakness with diarrhea, C. diff negative, hemoglobin is 10.2, all other labs that have been done so far are unremarkable. Cause of her generalized weakness is not clear. Possible coronary artery disease, sleep apnea and other comorbid states might explain her weakness. Magnesium is normal at 2.5, total CPK was normal at 47 Recommendation. We'll obtain a TSH, phosphorus, consider obtaining a echocardiogram or a nuclear medicine MUGA scan for ruling out cardiac causes of weakness. 3.
--- NOTE | 2017-03-31 11:46 | PN ---
DATE OF SERVICE: 03/30/2017 This 82-year-old woman was admitted after UTI and sepsis. Also had diarrhea. At this time the patient complaints of tiredness and weakness. No chest pain, no palpitation, no fever. The urine culture showed staph. The patient has diarrhea. PHYSICAL EXAMINATION: The patient is alert and oriented x3. Pulse is 80, blood pressure 130/62, respirations 18, temperature 97.8, pulse ox 94% on room air. HEENT: Conjunctivae normal. NECK: No JVD. CARDIOVASCULAR: S1/S2. RESPIRATORY: Diminished breath sounds at the bases. Scattered rhonchi, no crackles. ABDOMEN: Soft, nontender. LEGS: No edema. NEURO: No focal deficits. LABS: WBC 9.8, hemoglobin is 9.2. ASSESSMENT: 1. Urinary tract infection with possible sepsis, present on admission. 2. Change in mental status, metabolic encephalopathy, present on admission, multifactorial. 3. Generalized weakness and tiredness. 4. Diarrhea. 5. Gait dysfunction. 6. Chronic renal failure on hemodialysis. 7. Asthma, chronic obstructive pulmonary disease, no exacerbation. RECOMMENDATIONS AND DISCUSSION: Continue current medication, continue to monitor, continue symptomatic treatment. Otherwise, at this time we will monitor the patient closely. Guarded prognosis. Closely monitor with nephrology. PT and OT evaluation, possibility to rehab. Check for C. diff and if negative Imodium p.r.n.. Further recommendations to follow. MTDD
[2017-03-31 11:52] LABS: Glucose,Whole Blood 97 mg/dL (75-99)
[2017-03-31 11:55] LABS: Phosphorous 2.1 mg/dL (2.5-4.5)
[2017-03-31] MEDS: MULTIVITAMINS, THERA 1 EACH TAB PO SCH (12:51)
[2017-03-31 17:22] LABS: Glucose,Whole Blood 121 mg/dL (75-99)
[2017-03-31] MEDS ORDERED: traMADol 50 MG TAB PO PRN (19:35)
[2017-03-31 20:16] LABS: Glucose,Whole Blood 133 mg/dL (75-99)
[2017-03-31] MEDS: ALPRAZolam 0.25 MG TAB PO SCH (21:41)
[2017-03-31] MEDS: ATORVASTATIN 10 MG TAB PO SCH (21:41)
[2017-03-31] MEDS: MONTELUKAST 10 MG TAB PO SCH (21:43)
[2017-04-01] MEDS: LEVOTHYROXINE 50 MCG TAB PO SCH (06:31)
[2017-04-01 07:23] LABS: Glucose,Whole Blood 90 mg/dL (75-99)
[2017-04-01] MEDS: IPRATROPIUM-ALBUTEROL 3 ML NEB INHALATION SCH ×4 (07:26→20:24)
[2017-04-01] MEDS: INSULIN LISPRO (humaLOG) 300 UNIT/3 ML VIAL SQ SCH ×4 (07:39→21:12)
[2017-04-01] MEDS: FUROSEMIDE 40 MG TAB PO SCH (07:59)
[2017-04-01] MEDS: ASPIRIN 81 MG CHEW PO SCH (07:59)
[2017-04-01] MEDS: NIACIN TR 500 MG CAPSULE.ER PO SCH (07:59)
[2017-04-01] MEDS: SEVELAMER 800 MG TAB PO SCH ×3 (07:59→17:45)
[2017-04-01] MEDS: busPIRone HCl 5 MG TAB PO SCH ×2 (07:59→20:09)
[2017-04-01] MEDS: diphenhydrAMINE 50 MG CAP PO SCH ×3 (07:59→22:21)
[2017-04-01] MEDS: ALLOPURINOL 100 MG TAB PO SCH (07:59)
[2017-04-01] MEDS: CLOPIDOGREL 75 MG TAB PO SCH (07:59)
[2017-04-01] MEDS: SODIUM CHLORIDE 0.9% 1,000 ML IV SCH (08:01)
--- NOTE | 2017-04-01 10:40 | P.PN ---
Subjective Principal diagnosis: Bhavana is a 82-year-old ESRD patient on dialysis Sunday who came in because of profound weakness. She has been complaining of loose stools as well as recently had diagnosis of urine tract infection. Workup so far has been negative C. diff negative, blood cultures have been negative from 03/26/2017 and a urine culture had grown coagulase negative staph at this time. She is feeling much better this morning and has had no loose stools compared to 67 yesterday. No abdominal pain no fever chills appetite is improved significantly this morning. She is usually able to walk with her own walker independently and she is improved but still feels somewhat weak. Objective - Vital Signs Vital signs: Vital Signs Temp 98.1 F 03/31/17 21:40 Pulse 84 04/01/17 07:37 Resp 12 04/01/17 08:00 BP 153/65 04/01/17 07:00 Pulse Ox 100 04/01/17 07:00 Intake & Output 03/31/17 04/01/17 04/01/17 18:59 06:59 18:59 Intake Total 400 250 Balance 400 250 Weight 73 kg Intake: Oral 400 250 Other: Voiding Method Bedside Commode Bedside Commode Bedside Commode # Voids 1 # Bowel Movements 2 2 Examination she is awake alert oriented HEENT exam no JVP lymphadenopathy neck is supple no facial asymmetry Lungs are clear to auscultation percussion good air entry bilaterally Heart sounds are unremarkable for any murmur rub gallop. Abdomen soft nontender somewhat obese and protuberant Extremity exam was no edema Awake alert oriented but generalized weakness. Focal motor deficit - Labs CBC & Chem 7: 03/30/17 08:50 03/30/17 08:50 Labs: Abnormal Lab Results - Last 24 Hours (Table) 03/30/17 03/31/17 03/31/17 Range/Units 08:50 17:16 20:15 POC Glucose (mg/dL) 121 H 133 H (75-99) mg/dL Phosphorus 2.1 L (2.5-4.5) mg/dL Microbiology - Last 24 Hours (Table) 03/30/17 21:25 Blood Culture - Preliminary Blood No Growth after 24 hours 03/26/17 11:34 Blood Culture - Preliminary Blood No Growth after 120 hours Assessment and Plan Plan: Impression. 1. ESRD on dialysis Sunday. Stable 2. Generalized weakness with diarrhea, C. diff negative, hemoglobin is 10.2, all other labs that have been done so far are unremarkable. Cause of her generalized weakness is IJ from diarrhea which has improved. Workup has included normal TSH is slightly low phosphorus 2.1 because of the diarrhea. Recommendation. He could be discharged home after dialysis tomorrow. Watch her phosphorus albumin, maintain the Renvela as her appetite is improving her phosphorus is expected to improve
--- NOTE | 2017-04-01 11:11 | PN ---
DATE OF SERVICE: 03/31/17 This 82-year-old woman was admitted with UTI, with sepsis, also had change in mental status. The patient was also complaining of weakness and tiredness. The patient also had diarrhea which is periodic in nature. Nephrology is following the patient closely. PHYSICAL EXAMINATION: The patient is alert and oriented times two. Pulse 77. Blood pressure 156/67. Respiratory rate 16. Temperature 97.9. Pulse ox 94% on room air. HEENT: Conjunctivae normal. NECK: No JVD. No carotid bruit. CARDIOVASCULAR: S1. S2 muffled. RESPIRATORY: Breath sounds diminished at the bases. A few scattered rhonchi and crackles. ABDOMEN: Soft. Nontender. No mass palpable. LEGS: No edema. No swelling. NERVOUS SYSTEM: No focal deficits. LABS: Hemoglobin 10, Accu-Cheks are noted. ASSESSMENT: 1. Urinary tract infection with sepsis present on admission. 2. Change in mental status, metabolic encephalopathy, present on admission, multifactorial. 3. Generalized weakness and tiredness. 4. Diarrhea, C. dif negative. 5. Gait dysfunction. 6. Chronic hemodialysis. 7. Asthma/chronic obstructive pulmonary disease. No exacerbation. RECOMMENDATIONS AND DISCUSSION: Continue the current medications, continue with symptomatic treatment. Otherwise at this time, monitor the patient closely. Guarded prognosis because of multiple complex medical issues. Further recommendations to follow. Possible ECF rehab. MTDD
[2017-04-01 12:01] LABS: Glucose,Whole Blood 183 mg/dL (75-99)
[2017-04-01] MEDS: MULTIVITAMINS, THERA 1 EACH TAB PO SCH (12:15)
[2017-04-01 15:58] VITALS: RESP 16
[2017-04-01 17:43] LABS: Glucose,Whole Blood 134 mg/dL (75-99)
[2017-04-01] MEDS: ATORVASTATIN 10 MG TAB PO SCH (20:09)
[2017-04-01] MEDS: ALPRAZolam 0.25 MG TAB PO SCH (20:09)
[2017-04-01] MEDS: MONTELUKAST 10 MG TAB PO SCH (20:09)
[2017-04-01 20:24] LABS: Glucose,Whole Blood 147 mg/dL (75-99)
[2017-04-02] MEDS: LEVOTHYROXINE 50 MCG TAB PO SCH (06:11)
[2017-04-02] MEDS: MIDODRINE 5 MG TAB PO SCH (07:02)
[2017-04-02 07:19] LABS: Glucose,Whole Blood 118 mg/dL (75-99)
[2017-04-02 07:27] VITALS: BP 165/67; TEMP 97.8
[2017-04-02] MEDS: IPRATROPIUM-ALBUTEROL 3 ML NEB INHALATION SCH ×2 (07:50→11:53)
[2017-04-02] MEDS: INSULIN LISPRO (humaLOG) 300 UNIT/3 ML VIAL SQ SCH ×2 (08:46→13:06)
[2017-04-02] MEDS: diphenhydrAMINE 50 MG CAP PO SCH (11:50)
[2017-04-02] MEDS: SEVELAMER 800 MG TAB PO SCH ×2 (11:50→13:04)
[2017-04-02] MEDS: NIACIN TR 500 MG CAPSULE.ER PO SCH (11:53)
[2017-04-02] MEDS: CLOPIDOGREL 75 MG TAB PO SCH (11:53)
[2017-04-02] MEDS: ALLOPURINOL 100 MG TAB PO SCH (11:54)
[2017-04-02] MEDS: ASPIRIN 81 MG CHEW PO SCH (11:54)
[2017-04-02] MEDS: busPIRone HCl 5 MG TAB PO SCH (11:54)
[2017-04-02 11:56] VITALS: PULSE 80
[2017-04-02 12:11] LABS: Glucose,Whole Blood 92 mg/dL (75-99)
[2017-04-02] MEDS: SODIUM CHLORIDE 0.9% 1,000 ML IV SCH (12:26)
--- NOTE | 2017-04-02 12:29 | PN ---
DATE OF SERVICE: 04/01/2017 This 82-year-old woman who was admitted with UTI with sepsis, also had change in mental status, metabolic encephalopathy also. The patient is being closely monitored. The patient is improving significantly. No chest pain or palpitation. No fever. On exam, alert and oriented x3. Pulse is 84, blood pressure 153/65, respirations 12, temperature 98.1, pulse ox 100% on room air. HEENT: Conjunctivae normal. NECK: No jugular venous distention. CARDIOVASCULAR: S1 and S2 muffled. RESPIRATORY: Breath sounds diminished at the bases. A few scattered rhonchi. No crackles. ABDOMEN: Soft, nontender. LEGS: No edema, no swelling. NERVOUS SYSTEM: Mild diffuse weakness. Labs are at this time shows glucose 133 and 90. Otherwise, WBC 9.8, hemoglobin 10.2. ASSESSMENT: 1. Urinary tract infection with sepsis, present on admission. 2. Change in mental status, metabolic encephalopathy, present on admission, multifactorial 3. Generalized weakness and tiredness. 4. Diarrhea. Clostridium difficile is negative. 5. Gait dysfunction. 6. Chronic ( ) hemodialysis. 7. Asthma, chronic obstructive pulmonary disease, no exacerbation. RECOMMENDATIONS AND DISCUSSION: Recommend to continue current medications. Continue with monitoring and symptomatic treatment. ( ). Closely follow with nephrology, possible hemodialysis. Urine culture only showed coagulase staph. Further recommendations to follow. MTDD
[2017-04-02] MEDS: MULTIVITAMINS, THERA 1 EACH TAB PO SCH (13:21)
--- NOTE | 2017-04-02 14:26 | P.DS ---
Providers Date of admission: 03/26/17 08:07 Attending physician: Oscar Corona MD Consults: 03/26/17 10:07 Consult Physician Routine Consulting Provider: Henna Molina Consult Reason/Comments: HD Do you want consulting provider notified?: Yes Primary care physician: Tone Adams [facility] Course: He 2-year-old female comes in to the hospital with generalized weakness. There is some concern over urinary tract infection. Patient does not make urine apparently however these are baseline symptoms according to the macaroni press operator who is a bedside patient was started on ciprofloxacin at that time Patient was having loose bowel movements Was noted to have a metabolic encephalopathy Patient was tested for C. diff toxin which was negative Patient was monitored in the hospital with the when necessary medications to control the diarrhea On the day of discharge alert oriented 3 no distress Lungs good air movement clear to auscultation Left-sided palpable thrill on the arm Musculoskeletal tenderness to palpation on the superior aspect of the left rotator cuff No focal deficits noted Assessment and plan #1 acute metabolic encephalopathy likely multifactorial #2 ESRD on hemodialysis for a #3 anemia of ESRD #4 history of asthma #5 recent cystitis Discharge to care home Plan - Discharge Summary New Discharge Prescriptions: Continue Niacin 500 mg PO DAILY Multivitamins, Thera [Multivitamin (formulary)] 1 tab PO DAILY Midodrine [ProAmatine] 5 mg PO MOWEFR Levothyroxine Sodium [Synthroid] 50 mcg PO DAILY Furosemide [Lasix] 40 mg PO SUTUTHSA Cetirizine HCl/Pseudoephedrine [Zyrtec-D Tablet] 1 tab PO DAILY Allopurinol [Zyloprim] 100 mg PO DAILY Simvastatin [Zocor] 20 mg PO HS Sevelamer [Renvela] 1,600 mg PO TID busPIRone HCl [Buspar] 15 mg PO BID Montelukast [Singulair] 10 mg PO HS Clopidogrel Bisulfate [Plavix] 75 mg PO DAILY Ergocalciferol [Vitamin D2 (DRISDOL)] 50,000 unit PO TH Calcium/Magnesium/Zinc [Cpswlyi-Zocjzzyqn-Axgr Tablet] 1 tab PO DAILY Aspirin EC [Ecotrin Low Dose] 81 mg PO DAILY ALPRAZolam [Xanax] 0.25 mg PO HS Cranberry Gummies 1 tab PO BID Albuterol Inhaler [Ventolin Hfa Inhaler] 2 puff INHALATION RT-TID PRN PRN Reason: Shortness Of Breath diphenhydrAMINE HCL [Benadryl] 50 mg PO TID [place] 3-6-9 1 tab PO BID Albuterol Nebulized [Ventolin Nebulized] 2.5 mg INHALATION RT-QID PRN PRN Reason: Shortness Of Breath Anti-Aging Tab 1 tab PO DAILY rOPINIRole HCL [Requip] 1 mg PO BID Discontinued Trimethoprim 100 mg PO HS Ciprofloxacin HCl [Cipro] 500 mg PO Q12HR #18 tablet Discharge Medication List Allopurinol [Zyloprim] 100 mg PO DAILY 06/09/15 [History] Cetirizine HCl/Pseudoephedrine [Zyrtec-D Tablet] 1 tab PO DAILY 06/09/15 [ History] Furosemide [Lasix] 40 mg PO SUTUTHSA 06/09/15 [History] Levothyroxine Sodium [Synthroid] 50 mcg PO DAILY 06/09/15 [History] Midodrine [ProAmatine] 5 mg PO MOWEFR 06/09/15 [History] Multivitamins, Thera [Multivitamin (formulary)] 1 tab PO DAILY 06/09/15 [History ] Niacin 500 mg PO DAILY 06/09/15 [History] Sevelamer [Renvela] 1,600 mg PO TID 06/09/15 [History] Simvastatin [Zocor] 20 mg PO HS 06/09/15 [History] Clopidogrel Bisulfate [Plavix] 75 mg PO DAILY 07/21/16 [History] Montelukast [Singulair] 10 mg PO HS 07/21/16 [History] busPIRone HCl [Buspar] 15 mg PO BID 07/21/16 [History] Aspirin EC [Ecotrin Low Dose] 81 mg PO DAILY 08/16/16 [History] Calcium/Magnesium/Zinc [Kplamce-Lhpblfxvt-Ilpp Tablet] 1 tab PO DAILY 08/16/16 [ History] Ergocalciferol [Vitamin D2 (DRISDOL)] 50,000 unit PO TH 08/16/16 [History] ALPRAZolam [Xanax] 0.25 mg PO HS 12/18/16 [History] Albuterol Inhaler [Ventolin Hfa Inhaler] 2 puff INHALATION RT-TID PRN 12/18/16 [ History] Cranberry Gummies 1 tab PO BID 12/18/16 [History] [place] 3-6-9 1 tab PO BID 02/06/17 [History] diphenhydrAMINE HCL [Benadryl] 50 mg PO TID 02/06/17 [History] Albuterol Nebulized [Ventolin Nebulized] 2.5 mg INHALATION RT-QID PRN 03/22/17 [ History] Anti-Aging Tab 1 tab PO DAILY 03/22/17 [History] rOPINIRole HCL [Requip] 1 mg PO BID 03/22/17 [History] Follow up Appointment(s)/Referral(s): Tone Adams MD [Primary Care Provider] - 1-2 days Discharge Disposition: TRANSFER TO SNF/ECF
== END 2017-04-02 16:24 | DRG 871 ==
LOC: EC 04:34 → 5MS5E 08:07 → 5ONC 03-31 19:42
PROVIDERS: ADMIT Internal Medicine; ATTEND Internal Medicine
PROC: 5A1D60Z (ICD-10-PCS; principal; 2017-03-30)
DX: A41.9 Sepsis, unspecified organism (principal); G93.41 Metabolic encephalopathy; E11.22 Type 2 diabetes mellitus with diabetic chronic kidney disease; I12.0 Hypertensive chronic kidney disease with stage 5 chronic kidney disease or end stage renal disease; N18.6 End stage renal disease; N39.0 Urinary tract infection, site not specified; D63.1 Anemia in chronic kidney disease; E03.9 Hypothyroidism, unspecified; E78.5 Hyperlipidemia, unspecified; G47.33 Obstructive sleep apnea (adult) (pediatric); I25.10 Atherosclerotic heart disease of native coronary artery without angina pectoris; J44.9 Chronic obstructive pulmonary disease, unspecified; Z79.02 Long term (current) use of antithrombotics/antiplatelets; Z79.899 Other long term (current) drug therapy; Z82.49 Family history of ischemic heart disease and other diseases of the circulatory system; Z87.891 Personal history of nicotine dependence; Z88.0 Allergy status to penicillin; Z95.2 Presence of prosthetic heart valve; Z99.2 Dependence on renal dialysis; Z88.2 Allergy status to sulfonamides
CPT/HCPCS: 36415; 51701; 71010; 74230; 80048; 80053; 81001; 82550; 82553; 83036; 83605; 83735; 84100; 84443; 84484; 85025; 85610; 85730; 87040; 87077; 87086; 87186; 87324; 90935; 93005; 94640; 94760; 99285

== ENCOUNTER 2017-05-28 15:55 | Emergency (ER) | payer MEDICARE ==
[2017-05-28] MEDS ORDERED: SODIUM CHLORIDE 0.9% 500 ML IV STA (16:20)
[2017-05-28] MEDS ORDERED: NITROGLYCERIN OINT 1 INCH/GM PACKET TOPICAL STA (16:20)
--- NOTE | 2017-05-28 16:24 | ED ---
General Adult HPI - General Chief complaint: Shortness of Breath Stated complaint: SOB Time Seen by Provider: 05/28/17 16:00 Source: patient, family, RN notes reviewed Mode of arrival: wheelchair Limitations: no limitations - History of Present Illness Initial comments: Is an 82-year-old female presents emergency complaining of increased weakness. According to the patient she saw her primary medical care doctor for an upper rest infection a few days ago and they put her on Levaquin and steroids. Patient states since then she become weaker and weaker. Patient denies any fever or chills. Patient denies any shortness of breath or difficulty breathing. Patient denies any chest pain or palpitations. Patient states this happens in the past when she's had a urinary tract infection though she has no symptoms of urinary tract infection. Patient denies dysuria hematuria urinary frequency. Patient denies any lightheadedness dizziness or near syncopal episode. Patient denies headache patient denies numbness weakness. Patient denies any abdominal pain patient denies nausea vomiting diarrhea. - Related Data Home Medications Medication Instructions Recorded Confirmed Allopurinol [Zyloprim] 100 mg PO DAILY 06/09/15 05/28/17 Cetirizine HCl/Pseudoephedrine 1 tab PO DAILY 06/09/15 05/28/17 [Zyrtec-D Tablet] Furosemide [Lasix] 40 mg PO SUTUTHSA 06/09/15 05/28/17 Levothyroxine Sodium [Synthroid] 50 mcg PO DAILY 06/09/15 05/28/17 Midodrine [ProAmatine] 5 mg PO MOWEFR 06/09/15 05/28/17 Multivitamins, Thera [Multivitamin 1 tab PO DAILY 06/09/15 05/28/17 (formulary)] Niacin 500 mg PO DAILY 06/09/15 05/28/17 Sevelamer [Renvela] 1,600 mg PO TID 06/09/15 05/28/17 Simvastatin [Zocor] 20 mg PO HS 06/09/15 05/28/17 Clopidogrel Bisulfate [Plavix] 75 mg PO DAILY 07/21/16 05/28/17 Montelukast [Singulair] 10 mg PO HS 07/21/16 05/28/17 Aspirin EC [Ecotrin Low Dose] 81 mg PO DAILY 08/16/16 05/28/17 Calcium/Magnesium/Zinc 1 tab PO DAILY 08/16/16 05/28/17 [Kszvvnu-Pasnlndom-Hffa Tablet] Ergocalciferol [Vitamin D2 50,000 unit PO TH 08/16/16 05/28/17 (DRISDOL)] Albuterol Inhaler [Ventolin Hfa 2 puff INHALATION RT-TID PRN 12/18/16 05/28/17 Inhaler] Cranberry Gummies 1 tab PO BID 12/18/16 05/28/17 Worth 3-6-9 1 tab PO BID 02/06/17 05/28/17 diphenhydrAMINE HCL [Benadryl] 50 mg PO TID 02/06/17 05/28/17 Albuterol Nebulized [Ventolin 2.5 mg INHALATION RT-QID PRN 03/22/17 05/28/17 Nebulized] Anti-Aging Tab 1 tab PO DAILY 03/22/17 05/28/17 Azelastine HCl 2 spray EA NOSTRIL DAILY 05/28/17 05/28/17 Ipratropium Keiser [Atrovent Hfa] 2 puff INHALATION RT-QID PRN 05/28/17 Levofloxacin [Levaquin] 500 mg PO DAILY 05/28/17 05/28/17 busPIRone HCL 15 mg PO TID 05/28/17 05/28/17 methylPREDNISolone Dose Pack See Taper PO DAILY 05/28/17 05/28/17 [Medrol Dose Pack] rOPINIRole HCL [Requip] 2 mg PO TID 05/28/17 05/28/17 Previous Rx's Medication Instructions Recorded ALPRAZolam [Xanax] 0.25 mg PO HS #10 04/02/17 Allergies Allergy/AdvReac Type Severity Reaction Status Date / Time Penicillins Allergy Dyspnea/Yves Verified 05/28/17 16:54 h shellfish derived [Shellfish] Allergy Dyspnea Verified 05/28/17 16:54 Sulfa (Sulfonamide Allergy Unknown Verified 05/28/17 16:54 Antibiotics) Childhood Review of Systems ROS Statement: Those systems with pertinent positive or pertinent negative responses have been documented in the HPI. ROS Other: All systems not noted in ROS Statement are negative. Past Medical History Past Medical History: Asthma, Coronary Artery Disease (CAD), COPD, Diabetes Mellitus, Dialysis, Hyperlipidemia, Hypertension, Osteoarthritis (OA), Renal Disease, Sleep Apnea/CPAP/BIPAP, Thyroid Disorder Additional Past Medical History / Comment(s): Diabetes-no longer on medications , peripheral neuropathy bilateral hands and feet, migraines,GARRETT with no CPAP used, hiatal hernia, diverticulitis, gout bilateral ankles and feet, ESRD- hemodialysis- on MOWEFR, anemia r/t renal dx, O2 -3 liters n/c PRN, djd, possible RLS, arthritis bilateral knees/hands-wears bilateral knee braces ( knees will buckle), hypothyroid, UTIs with recent UTI with Ecoli/sepsis and bronchitis. History of Any Multi-Drug Resistant Organisms: None Reported Past Surgical History: Appendectomy, Breast Surgery, Cholecystectomy, Heart Catheterization, Hysterectomy, Orthopedic Surgery Additional Past Surgical History / Comment(s): left shoulder surgery, bilateral breast benign tumors, dialysis cather rt side of chest since removed), fistula left arm, bilateral cataracts, aortic valve replacement, ivis, colonoscopy, bilateral knee injections. Past Anesthesia/Blood Transfusion Reactions: Previous Problems w/ Anesthesia Additional Past Anesthesia/Blood Transfusion Reaction / Comment(s): "slow to come out" Past Psychological History: Anxiety Smoking Status: Former smoker Past Alcohol Use History: None Reported Past Drug Use History: None Reported - Past Family History Father Family Medical History: Myocardial Infarction ([place]) Mother Family Medical History: No Reported History Additional Family Medical History / Comment(s): from old age. Daughter(s) Family Medical History: Cancer General Exam - General Exam Comments Initial Comments: GENERAL: Patient is well-developed and well-nourished. Patient is nontoxic and well- hydrated and is in mild distress. ENT: Neck is soft and supple. No significant lymphadenopathy is noted. Oropharynx is clear. Moist mucous membranes. Neck has full range of motion without eliciting any pain. EYES: The sclera were anicteric and conjunctiva were pink and moist. Extraocular movements were intact and pupils were equal round and reactive to light. Eyelids were unremarkable. PULMONARY: Unlabored respirations. Good breath sounds bilaterally. No audible rales rhonchi or wheezing was noted. CARDIOVASCULAR: There is a regular rate and rhythm without any murmurs gallops or rubs. ABDOMEN: Soft and nontender with normal bowel sounds. No palpable organomegaly was noted. There is no palpable pulsatile mass. SKIN: Skin is clear with no lesions or rashes and otherwise unremarkable. NEUROLOGIC: Patient is alert and oriented x3. Cranial nerves II through XII are grossly intact. Motor and sensory are also intact. Normal speech, volume and content. Symmetrical smile. MUSCULOSKELETAL: Normal extremities with adequate strength and full range of motion. No lower extremity swelling or edema. No calf tenderness. LYMPHATICS: No significant lymphadenopathy is noted PSYCHIATRIC: Normal psychiatric evaluation. Normal interpersonal interactions appears functionally intact in deals appropriately with others. No signs of depression. No signs of anxiety. Limitations: no limitations Course Vital Signs 05/28/17 05/28/17 05/28/17 16:06 17:10 19:00 Temperature 98.0 F 97.9 F Pulse Rate 88 77 77 Respiratory 22 20 18 Rate Blood Pressure 168/70 129/43 140/51 O2 Sat by Pulse 95 97 96 Oximetry Medical Decision Making - Medical Decision Making EKG shows a sinus rhythm at 85 bpm PA interval is 224 QRS is 84 Q-T intervals 426 QTC is 506. Patient's EKG shows no ST segment elevation or depression or T- wave abdomen is noted. Patient does have a first-degree AV block. Patient was able to ambulate without problem. Chest x-ray showed no acute abnormality. Patient was 1 to go home and follow- up with primary medical care doctor. - Lab Data Result diagrams: 05/28/17 16:50 05/28/17 16:50 Lab Results 05/28/17 05/28/17 05/28/17 Range/Units 16:50 16:50 16:50 WBC 8.9 (3.8-10.6) k/uL RBC 3.46 L (3.80-5.40) m/uL Hgb 11.7 (11.4-16.0) gm/dL Hct 36.4 (34.0-46.0) % MCV 105.3 H (80.0-100.0) fL MCH 33.8 (25.0-35.0) pg MCHC 32.1 (31.0-37.0) g/dL RDW 17.6 H (11.5-15.5) % Plt Count 280 (150-450) k/uL Neutrophils % 83 % Lymphocytes % 10 % Monocytes % 5 % Eosinophils % 0 % Basophils % 0 % Neutrophils # 7.4 (1.3-7.7) k/uL Lymphocytes # 0.9 L (1.0-4.8) k/uL Monocytes # 0.4 (0-1.0) k/uL Eosinophils # 0.0 (0-0.7) k/uL Basophils # 0.0 (0-0.2) k/uL Hypochromasia Slight Anisocytosis Slight Macrocytosis Moderate PT (9.0-12.0) sec INR (<1.2) APTT (22.0-30.0) sec Sodium 134 L (137-145) mmol/L Potassium 4.1 (3.5-5.1) mmol/L Chloride 92 L (98-107) mmol/L Carbon Dioxide 31 H (22-30) mmol/L Anion Gap 11 mmol/L BUN 15 (7-17) mg/dL Creatinine 2.00 H (0.52-1.04) mg/dL Est GFR (MDRD) Af Amer 29 (>60 ml/min/1.73 sqM) Est GFR (MDRD) Non-Af 24 (>60 ml/min/1.73 sqM) Glucose 183 H (74-99) mg/dL Calcium 9.3 (8.4-10.2) mg/dL Magnesium 1.9 (1.6-2.3) mg/dL Total Bilirubin 0.4 (0.2-1.3) mg/dL AST 33 (14-36) U/L ALT 34 (9-52) U/L Alkaline Phosphatase 116 (38-126) U/L Total Creatine Kinase 63 (30-135) U/L CK-MB (CK-2) 3.6 H* (0.0-2.4) ng/mL CK-MB (CK-2) Rel Index 5.7 Troponin I <0.012 (0.000-0.034) ng/mL Total Protein 6.3 (6.3-8.2) g/dL Albumin 3.8 (3.5-5.0) g/dL 05/28/17 Range/Units 16:50 WBC (3.8-10.6) k/uL RBC (3.80-5.40) m/uL Hgb (11.4-16.0) gm/dL Hct (34.0-46.0) % MCV (80.0-100.0) fL MCH (25.0-35.0) pg MCHC (31.0-37.0) g/dL RDW (11.5-15.5) % Plt Count (150-450) k/uL Neutrophils % % Lymphocytes % % Monocytes % % Eosinophils % % Basophils % % Neutrophils # (1.3-7.7) k/uL Lymphocytes # (1.0-4.8) k/uL Monocytes # (0-1.0) k/uL Eosinophils # (0-0.7) k/uL Basophils # (0-0.2) k/uL Hypochromasia Anisocytosis Macrocytosis PT 11.4 (9.0-12.0) sec INR 1.1 (<1.2) APTT 23.6 (22.0-30.0) sec Sodium (137-145) mmol/L Potassium (3.5-5.1) mmol/L Chloride (98-107) mmol/L Carbon Dioxide (22-30) mmol/L Anion Gap mmol/L BUN (7-17) mg/dL Creatinine (0.52-1.04) mg/dL Est GFR (MDRD) Af Amer (>60 ml/min/1.73 sqM) Est GFR (MDRD) Non-Af (>60 ml/min/1.73 sqM) Glucose (74-99) mg/dL Calcium (8.4-10.2) mg/dL Magnesium (1.6-2.3) mg/dL Total Bilirubin (0.2-1.3) mg/dL AST (14-36) U/L ALT (9-52) U/L Alkaline Phosphatase (38-126) U/L Total Creatine Kinase (30-135) U/L CK-MB (CK-2) (0.0-2.4) ng/mL CK-MB (CK-2) Rel Index Troponin I (0.000-0.034) ng/mL Total Protein (6.3-8.2) g/dL Albumin (3.5-5.0) g/dL Disposition Clinical Impression: Weakness Disposition: HOME SELF-CARE Condition: Good Instructions: Weakness (ED) Referrals: Tone Adams MD [Primary Care Provider] - 1-2 days Time of Disposition: 20:14
[2017-05-28 17:25] LABS: Anisocytosis Slight; Basophils % (A) 0 %; CH 32.7; CHCM 31.2; Eosinophils % (A) 0 %; HCT 36.4 % (34.0-46.0); HDW 2.64; HGB 11.7 gm/dL (11.4-16.0); Hypochromasia Slight; Luc # (Auto) 0.17; Luc % (Auto) 2; Lymphocytes # (A) 0.9 k/uL (1.0-4.8); Lymphocytes % (A) 10 %; MCH 33.8 pg (25.0-35.0); MCHC 32.1 g/dL (31.0-37.0); MCV 105.3 fL (80.0-100.0); Macrocytosis Moderate; Mean Platelet Volume 6.6; Monocytes # (A) 0.4 k/uL (0-1.0); Monocytes % (A) 5 %; Neutrophils # (A) 7.4 k/uL (1.3-7.7); Neutrophils % (A) 83 %; RBC 3.46 m/uL (3.80-5.40); RDW 17.6 % (11.5-15.5); WBC 8.9 k/uL (3.8-10.6); WBC (Perox) 9.23
[2017-05-28 17:30] LABS: Calcium 9.3 mg/dL (8.4-10.2); Magnesium 1.9 mg/dL (1.6-2.3); Potassium 4.1 mmol/L (3.5-5.1); Total Bilirubin 0.4 mg/dL (0.2-1.3); Total Protein 6.3 g/dL (6.3-8.2)
[2017-05-28 17:31] LABS: INR 1.1 (<1.2); Partial Thromboplastin Time 23.6 sec (22.0-30.0); Prothrombin Time 11.4 sec (9.0-12.0)
[2017-05-28 17:40] LABS: Creatine Kinase 63 U/L (30-135)
[2017-05-28 17:53] LABS: Troponin I <0.012 ng/mL (0.000-0.034)
[2017-05-28 17:55] LABS: Creatine Kinase MB 3.6 ng/mL (0.0-2.4)
--- NOTE | 2017-05-28 17:57 | XR ---
EXAMINATION TYPE: XR chest 2V DATE OF EXAM: 05/28/2017 COMPARISON: 03/26/2017 HISTORY: Pain TECHNIQUE: Frontal and lateral views of the chest are obtained. FINDINGS: Aortic root prosthesis has similar radiographic appearance when compared to the prior stud y. There is no focal air space opacity, pleural effusion, or pneumothorax seen. The cardiac silhouet te size is within normal limits. The osseous structures are intact. IMPRESSION: No acute cardiopulmonary process.
[2017-05-28 20:44] VITALS: BP 147/62; PULSE 72; RESP 20; TEMP 98
== END 2017-05-28 20:35 | disposition home or self-care (01) ==
LOC: EC 15:55
DX: R53.1 Weakness (principal); R06.02 Shortness of breath; I44.0 Atrioventricular block, first degree; I25.10 Atherosclerotic heart disease of native coronary artery without angina pectoris; I12.0 Hypertensive chronic kidney disease with stage 5 chronic kidney disease or end stage renal disease; N18.6 End stage renal disease; E78.5 Hyperlipidemia, unspecified; M19.90 Unspecified osteoarthritis, unspecified site; E03.9 Hypothyroidism, unspecified; M10.9 Gout, unspecified; D64.9 Anemia, unspecified; F41.9 Anxiety disorder, unspecified; J45.909 Unspecified asthma, uncomplicated; Z95.5 Presence of coronary angioplasty implant and graft; Z99.2 Dependence on renal dialysis; Z88.0 Allergy status to penicillin; Z88.2 Allergy status to sulfonamides; Z91.013 Allergy to seafood; Z79.02 Long term (current) use of antithrombotics/antiplatelets; Z79.82 Long term (current) use of aspirin; Z79.899 Other long term (current) drug therapy; Z87.891 Personal history of nicotine dependence
CPT/HCPCS: 36415; 71020; 80053; 82550; 82553; 83735; 84484; 85025; 85610; 85730; 93005; 96360; 99285